=== PATIENT | female | born 1970 | race Caucasian/White ===

== ENCOUNTER 2016-07-26 08:29 | Emergency (ER) | payer MEDICAID ==
[2016-07-26 08:40] VITALS: BP 164/88
[2016-07-26] MEDS ORDERED: Sodium Chloride 0.9% 1,000 ML IV ONE (08:48)
[2016-07-26] MEDS ORDERED: Morphine 2 MG/ML Syringe IVPUSH ONE ×2 (08:54→12:19)
[2016-07-26] MEDS ORDERED: Iopamidol 755 Mg/ML 75 ML Bottle IV ONE (09:00)
--- NOTE | 2016-07-26 09:01 | EDM.PDOC ---
ED HPI GENERAL MEDICAL PROBLEM - General Chief Complaint: General Stated Complaint: MOUTH Time Seen by Provider: 07/26/16 08:31 Source of Information: Reports: Patient History Limitations: Reports: No limitations - History of Present Illness INITIAL COMMENTS - FREE TEXT/NARRATIVE: 46 years old w f came the the ed due to Jaw swelling, pain and redness. Pt was seen by her dentist last saturday for upper dental work. She noticed pain and tenderness at her ant. lower teeth a few days ago, which is spreading to her bilat mandible area. Pt has extreme pain with eating. Onset: gradual Onset Date: 07/25/16 Onset Time: 07:00 Duration: Day(s):, Getting worse Location: Reports: face Quality: Reports: Ache, Burning, Dull, Pressure, Stabbing, Throbbing Severity: severe Improves with: Reports: None Worsens with: Reports: None Treatments [employer]: Reports: NSAIDS Lower Oral/Mouth Pain Score (Numeric/FACES): 8 - Related Data Allergies Allergy/AdvReac Type Severity Reaction Status Date / Time Penicillins Allergy Unknown Hives Verified 04/27/16 00:43 Sulfa (Sulfonamide Allergy Rash Verified 04/27/16 00:43 Antibiotics) aspirin AdvReac Stomach Verified 04/27/16 00:43 Upset propoxyphene napsylate AdvReac Stomach Verified 04/27/16 00:43 [From Jaqueline] Upset Home Meds: Home Meds tiZANidine HCl [Zanaflex] 4 mg PO BEDTIME 01/17/15 [History] Norgestrel-Ethinyl Estradiol [Hwu-Ltrobwnb-60 Tablet] 1 tab PO BEDTIME 08/25/15 [History] Simvastatin 40 mg PO BEDTIME 11/16/15 [History] Ergocalciferol (Vitamin D2) [Vitamin D2] 50,000 units PO MONTELONGO 11/24/15 [History] Ibuprofen 400 mg PO DAILY PRN 11/24/15 [History] Levothyroxine 200 mcg PO ACBREAKFAST 11/24/15 [History] Omeprazole 20 mg PO DAILY 11/24/15 [History] Pyridoxine HCl [Vitamin B-6] 50 mg PO BEDTIME 11/24/15 [History] Lisinopril 5 mg PO DAILY 02/29/16 [History] metFORMIN HCl [Metformin HCl] 500 mg BID 02/29/16 [History] Metoprolol Succinate [Toprol XL] 25 mg pe PO DAILY 04/27/16 [History] Azithromycin [IMW: Azithromycin] 250 mg PO DAILY #4 tab 06/17/16 [Rx] Hydrocodone/Acetaminophen [Hydrocodon-Acetaminophen 5-325] 1 each PO Q4HR PRN # 16 tablet 06/17/16 [Rx] Hydrocodone/Acetaminophen [Hydrocodon-Acetaminophen 5-325] 1 each PO Q4HR PRN # 20 tablet 06/17/16 [Rx] Cephalexin [Keflex] 500 mg PO Q6HR #40 cap 07/26/16 [Rx] Past Medical History - Past Health History Medical/Surgical History: Denies Medical/Surgical History HEENT History: Reports: Impaired vision Cardiovascular History: Reports: High cholesterol, Hypertension, SOB on exertion Other Cardiovascular History: broken heart syndrome Respiratory History: Reports: Bronchitis, recurrent, Sleep apnea, SOB Gastrointestinal History: Reports: Gastritis Other Gastrointestinal History: Obese. Genitourinary History: Reports: Renal disease [employer]IDENT [employer]ELOP[employer] History: Reports: , Other (see below) Other OB/BYN History: Musculoskeletal History: Reports: Back pain, chronic Other Musculoskeletal History: Torn L rotator cuff. Right foot fracture. Wrist surgery. Neurological History: Reports: Vertigo Psychiatric History: Reports: Anxiety, Depression Endocrine/Metabolic History: Reports: Diabetes, type II, Obesity/BMI 30+ Other Endocrine/Metabolic History: hx throid storm - Infectious Disease History Infectious Disease History: Reports: Influenza - Past Surgical History HEENT Surgical History: Reports: Tonsillectomy GI Surgical History: Reports: Other (see below) Other GI Surgeries/Procedures: Gastric bypass and gastric bypass reversal. Endocrine Surgical History: Reports: Other (see below) Other Endocrine Surgeries/Procedures: thyroid removed 20 years ago Social & Family History - Family History Other Cardiac Family History: Mom had open heart surgery, pt unsure of what surgery was for. Musculoskeletal: Reports: Arthritis, Gout, Osteoporosis Endocrine/Metabolic: Reports: Diabetes, type II, Osteoporosis Oncologic: Reports: Lung - Tobacco Use Smoking Status *Q: Current Every Day Smoker Years of Tobacco use: 13 Packs/Tins Daily: 1 Used Tobacco, but Quit: No Second Hand Smoke Exposure: No - Caffeine Use Caffeine Use: Reports: Coffee - Alcohol Use Days Per Week of Alcohol Use: 0 - Recreational Drug Use Recreational Drug Use: No - Living Situation & Occupation Living situation: Reports: , with family Occupation: unemployed (unemployed with a 14 y/o son.) ED ROS GENERAL - Review of Systems Review Of Systems: See Below Constitutional: Reports: no symptoms HEENT: Reports: Other (pain, swelling lower jaw with swelling) Respiratory: Reports: no symptoms Cardiovascular: Reports: No symptoms Endocrine: Reports: no symptoms GI/Abdominal: Reports: No symptoms : Reports: no symptoms Musculoskeletal: Reports: no symptoms Skin: Reports: no symptoms Neurological: Reports: no symptoms Psychiatric: Reports: No symptoms Hematologic/Lymphatic: Reports: no symptoms Immunologic: Reports: no symptoms ED EXAM, GENERAL - Physical Exam Exam: See Below Exam Limited By: No limitations General Appearance: alert, WD/WN, mild distress, obese Ears: normal external exam, normal canal, hearing grossly normal, normal TMs Ear Exam: bilateral ear: auricle normal, canal normal, TM normal Nose: normal inspection, normal mucosa, no blood Throat/Mouth: Inflammation (swelling od lower jaw, tender and erythematous), Other (stomatitis) Head: atraumatic, normocephalic Neck: normal inspection, supple, non-tender, full range of motion Respiratory/Chest: no respiratory distress, lungs clear, normal breath sounds, no accessory muscle use, chest non-tender Cardiovascular: normal peripheral pulses GI/Abdominal: normal bowel sounds, soft, non tender, no organomegaly, no distention, no abnormal bruit, no mass (Female) Exam: Deferred Rectal (Female) Exam: Deferred Back Exam: normal inspection Extremities: normal inspection Neurological: alert, oriented, CN II-XII intact, normal cognition, normal gait Psychiatric: normal affect, normal mood Skin Exam: Warm, Dry, Intact, Normal color, No rash Lymphatic: no adenopathy Course - Vital Signs Text/Narrative:: 46 years old w f came the the ed due to Jaw swelling, pain and redness. Pt was seen by her dentist last consuelo for upper dental work. She noticed pain and tenderness at her ant. lower teeth a few days ago, which is spreading to her bilat mandible area. Pt has extreme pain with eating. PE: Tender, eythema, gingivitis, swelling of jaw Imaging: facial CT neg for abscess, has LK swelling however. as per Radiologist Labs: WBC nl, Lactic acid 1.4 Impression: Gingivitis/stomatitis Tx: MS, Toradol, Rocephin, NS Consultation: Dr. Parada. Pt is under healthcare restriction. Agreed for a prescription for abx Reexam: Improved Plan: D/C home with instructions Last Recorded V/S: Last Vital Signs Temp 37.1 C 07/26/16 08:30 Pulse 67 07/26/16 08:30 Resp 20 07/26/16 08:30 BP 164/88 H 07/26/16 08:30 Pulse Ox 100 07/26/16 08:30 - Orders/Labs/Meds Orders: Active Orders 24 hr Category Date Time Status Soft Tissue Neck w Cont [CT] Stat Exams 07/26/16 08:45 Taken cefTRIAXone [Rocephin] 1 gm Med 07/26/16 12:30 Active Sodium Chloride 0.9% [Normal Saline] 50 ml IV ONETIME Medication Orders Ceftriaxone Sodium 1 gm/ (Sodium Chloride) 50 mls @ 100 mls/hr IV ONETIME ONE Stop: 07/26/16 12:59 Labs: Laboratory Tests 07/26/16 07/26/16 07/26/16 Range/Units 09:00 09:00 09:00 WBC 8.7 (4.5-12.0) X10-3/uL RBC 3.93 (3.23-5.20) x10(6)uL Hgb 11.8 (11.5-15.5) g/dL Hct 34.6 (30.0-51.3) % MCV 88.1 (80-96) fL MCH 29.9 (27.7-33.6) pg MCHC 34.0 (32.2-35.4) g/dL RDW 13.5 (11.5-15.5) % Plt Count 322 (125-369) X10(3)uL MPV 8.4 (7.4-10.4) fL Neut % (Auto) 62.6 (46-82) % Lymph % (Auto) 31.7 (13-37) % [place] % (Auto) 4.5 (4-12) % Eos % (Auto) 1 (1.0-5.0) % Baso % (Auto) 1 (0-2) % Neut # 5.4 (1.6-8.3) # Lymph # 2.8 (0.6-5.0) # [place] # 0.4 (0.0-1.3) # Eos # 0.1 (0.0-0.8) # Baso # 0.0 (0.0-0.2) # Sodium 136 (135-145) mmol/L Potassium 4.1 (3.5-5.3) mmol/L Chloride 107 (100-110) mmol/L Carbon Dioxide 21 L (23-29) mmol/L BUN 9 (5-20) mg/dL Creatinine 0.9 (0.6-1.3) mg/dL Est Cr Clr Drug Dosing 74.34 mL/min Estimated GFR (MDRD) > 60 (>60) BUN/Creatinine Ratio 10.0 (9-20) Glucose 128 H (80-116) mg/dL Lactic Acid 1.4 (0.5-2.2) mmol/L Calcium 8.7 (8.6-10.2) mg/dL Meds: Medications Generic Name Dose Route Start Last Admin Trade Name Freq PRN Reason Stop Dose Admin Ceftriaxone Sodium 1 gm/ 50 mls @ 100 mls/hr 07/26/16 12:30 Sodium Chloride IV 07/26/16 12:59 ONETIME ONE Discontinued Medications Generic Name Dose Route Start Last Admin Trade Name Freq PRN Reason Stop Dose Admin Sodium Chloride 1,000 mls @ 999 mls/hr 07/26/16 08:48 07/26/16 11:02 Normal Saline IV 07/26/16 09:48 999 mls/hr .BOLUS ONE Administration Iopamidol 75 ml 07/26/16 09:00 07/26/16 10:30 Isovue-370 (76%) IV 07/26/16 09:01 75 ml ONETIME ONE Administration Ketorolac Tromethamine 30 mg 07/26/16 12:30 Toradol IVPUSH 07/26/16 12:31 ONETIME ONE Morphine Sulfate 1 mg 07/26/16 08:54 07/26/16 10:21 Morphine IVPUSH 07/26/16 08:55 1 mg ONETIME ONE Administration Morphine Sulfate 1 mg 07/26/16 12:19 Morphine IVPUSH 07/26/16 12:20 ONETIME ONE Departure - Departure Time of Disposition: 12:44 Disposition: Home, Self-Care 01 Condition: good Clinical Impression: Stomatitis, Gingivitis Prescriptions: Cephalexin [Keflex] 500 mg PO Q6HR #40 cap Instructions: Gingivitis, [id number], Stomatitis, [id number] Referrals: Linda Parada MD [Primary Care Provider] - Forms: ED Department Discharge Additional Instructions: Please rinse your mouth 3 times daily, Ice packs on jaw, please take the meds as recommended, please follow up, please come back if symptoms get worse acutely - My Orders Last 24 Hours: My Active Orders 07/26/16 08:45 Soft Tissue Neck w Cont [CT] Stat 07/26/16 12:30 cefTRIAXone [Rocephin] 1 gm Sodium Chloride 0.9% [Normal Saline] 50 ml IV ONETIME - Assessment/Plan Last 24 Hours: My Active Orders 07/26/16 08:45 Soft Tissue Neck w Cont [CT] Stat 07/26/16 12:30 cefTRIAXone [Rocephin] 1 gm Sodium Chloride 0.9% [Normal Saline] 50 ml IV ONETIME
[2016-07-26] MEDS ORDERED: Ketorolac 30 MG/ML SDV IVPUSH ONE (12:30)
[2016-07-26] MEDS ORDERED: cefTRIAXone 1 GM in Sodium Chloride 0.9% 50 ML IV ONE (12:30)
--- NOTE | 2016-07-26 13:13 | CT ---
INDICATION: Swelling of jaw, possible abscess. CT SOFT TISSUE NECK WITH CONTRAST: Spiral 2.5-mm axial sections were obtained through the neck with 75 mL Isovue-370 at 1.5 mL per second, with sagittal and coronal reconstructions. Submandibular lymphadenopathy is noted, suggesting inflammatory process at the level of the mandible. However, a definite abscess formation was not identified. No specific bony abscess or soft tissue abscess was seen. Report was called to Dr. Baca at approximately 1215 hours, 07/26/2016. Total Exam DLP = 391.46 mGy-cm. MTDD
== END 2016-07-26 13:45 | disposition home or self-care (01) ==
LOC: FB.ED 08:29
DX: K12.1 Other forms of stomatitis (principal); K05.10 Chronic gingivitis, plaque induced; I10 Essential (primary) hypertension; E78.00 Pure hypercholesterolemia, unspecified; E11.9 Type 2 diabetes mellitus without complications; F41.9 Anxiety disorder, unspecified; F32.9 Major depressive disorder, single episode, unspecified; F17.210 Nicotine dependence, cigarettes, uncomplicated; E66.9 Obesity, unspecified; Z68.31 Body mass index [BMI] 31.0-31.9, adult; Z98.84 Bariatric surgery status; Z98.890 Other specified postprocedural states; Z79.899 Other long term (current) drug therapy; Z88.0 Allergy status to penicillin; Z88.2 Allergy status to sulfonamides; Z88.8 Allergy status to other drugs, medicaments and biological substances
CPT/HCPCS: 36415; 70491; 80048; 83605; 85025; 96361; 96374; 99283; J0696; J1885; J2270; J7040; J7050; Q9967; 96365; 96375

== ENCOUNTER 2016-08-20 11:20 | Emergency (ER) | payer MEDICAID ==
[2016-08-20 11:40] VITALS: BP 158/97
[2016-08-20] MEDS ORDERED: methylPREDNISolone Sodium Succinate 125 MG/2 ML SDV IVPUSH ONE (11:40)
[2016-08-20] MEDS ORDERED: Albuterol/Ipratropium 3.0-0.5 MG/3 ML Neb Soln NEB STA (11:40)
[2016-08-20] MEDS ORDERED: Sodium Chloride 0.9% 1,000 ML IV ONE (11:41)
[2016-08-20] MEDS: Sodium Chloride 0.9% 10 ML Syringe FLUSH PRN ×6 (11:56→14:45)
[2016-08-20] MEDS ORDERED: diphenhydrAMINE 50 MG/ML SDV IVPUSH ONE (13:14)
[2016-08-20] MEDS ORDERED: Albuterol 0.083% 2.5 MG/3 ML Neb Soln NEB ONE (13:16)
[2016-08-20] MEDS ORDERED: Codeine/guaiFENesin 100-10 MG/5 ML Syrup 5 ML Cup PO ONE (13:17)
--- NOTE | 2016-08-20 13:58 | EDM.PDOC ---
ED HISTORY OF PRESENT ILLNESS - General Chief Complaint: Respiratory Problem Stated Complaint: CHEMICAL INHALATION Time Seen by Provider: 08/20/16 11:38 Source: Reports: Patient, Family History Limitations: Reports: No limitations - History of Present Illness INITIAL COMMENTS - FREE TEXT/NARRATIVE: 46 years old w f with h/o multiple medical issues, was cleaning her bathroom with bleach and other chemicals. A few minutes after those evaporating chemicals , pt started to cough, for which her daughter brought her to the ed. Pt complained of dry cough and chest burning. Her vitals were stable, pulse ox was 99% on RA. No N/V/D or other medical issues. Symptom Onset Date: 08/20/16 Symptom Onset Time: 10:00 Location, General: Reports: chest Worsens with: Reports: Other (taking a deep breath) Associated Symptoms: Reports: cough - Related Data Allergies/ADRs: Allergies Allergy/AdvReac Type Severity Reaction Status Date / Time Penicillins Allergy Unknown Hives Verified 08/20/16 11:36 Sulfa (Sulfonamide Allergy Rash Verified 08/20/16 11:36 Antibiotics) aspirin AdvReac Stomach Verified 08/20/16 11:36 Upset propoxyphene napsylate AdvReac Stomach Verified 08/20/16 11:36 [From Darvocet-N] Upset Home Meds: Home Meds tiZANidine HCl [Zanaflex] 4 mg PO BEDTIME 01/17/15 [History] Norgestrel-Ethinyl Estradiol [Qfa-Wjrneqcz-93 Tablet] 1 tab PO BEDTIME 08/25/15 [History] Simvastatin 40 mg PO BEDTIME 11/16/15 [History] Ergocalciferol (Vitamin D2) [Vitamin D2] 50,000 units PO MONTELONGO 11/24/15 [History] Ibuprofen 400 mg PO DAILY PRN 11/24/15 [History] Levothyroxine 200 mcg PO ACBREAKFAST 11/24/15 [History] Omeprazole 20 mg PO DAILY 11/24/15 [History] Pyridoxine HCl [Vitamin B-6] 50 mg PO BEDTIME 11/24/15 [History] Lisinopril 5 mg PO DAILY 02/29/16 [History] metFORMIN HCl [Metformin HCl] 500 mg BID 02/29/16 [History] Metoprolol Succinate [Toprol XL] 25 mg pe PO DAILY 04/27/16 [History] Azithromycin [IMW: Azithromycin] 250 mg PO DAILY #4 tab 06/17/16 [Rx] Hydrocodone/Acetaminophen [Hydrocodon-Acetaminophen 5-325] 1 each PO Q4HR PRN # 16 tablet 06/17/16 [Rx] Hydrocodone/Acetaminophen [Hydrocodon-Acetaminophen 5-325] 1 each PO Q4HR PRN # 20 tablet 06/17/16 [Rx] Cephalexin [Keflex] 500 mg PO Q6HR #40 cap 07/26/16 [Rx] Albuterol [IJD: Albuterol HFA] 1 puff .XX Q4HR #1 inhaler 08/20/16 [Rx] Codeine/guaiFENesin [Robitussin AC] 10 ml PO Q8HR PRN #1 bottle 08/20/16 [Rx] Prednisone [IJD: predniSONE] 20 mg PO WITHBREAKFAST #5 tab 08/20/16 [Rx] Past Medical History - Past Health History Medical/Surgical History: Denies Medical/Surgical History HEENT History: Reports: Impaired vision Cardiovascular History: Reports: High cholesterol, Hypertension, SOB on exertion Other Cardiovascular History: broken heart syndrome Respiratory History: Reports: Bronchitis, recurrent, Sleep apnea, SOB Gastrointestinal History: Reports: Gastritis Other Gastrointestinal History: Obese. 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 Right foot fracture. Wrist surgery. Neurological History: Reports: Vertigo Psychiatric History: Reports: Anxiety, Depression Endocrine/Metabolic History: Reports: Diabetes, type II, Obesity/BMI 30+ Other Endocrine/Metabolic History: hx throid storm - Infectious Disease History Infectious Disease History: Reports: Influenza - Past Surgical History HEENT Surgical History: Reports: Tonsillectomy GI Surgical History: Reports: Other (see below) Other GI Surgeries/Procedures: Gastric bypass and gastric bypass reversal. Endocrine Surgical History: Reports: Other (see below) Other Endocrine Surgeries/Procedures: thyroid removed 20 years ago Social & Family History - Family History Other Cardiac Family History: Mom had open heart surgery, pt unsure of what surgery was for. Musculoskeletal: Reports: Arthritis, Gout, Osteoporosis Endocrine/Metabolic: Reports: Diabetes, type II, Osteoporosis Oncologic: Reports: Lung - Tobacco Use Smoking Status *Q: Never Smoker Years of Tobacco use: 13 Packs/Tins Daily: 1 Used Tobacco, but Quit: No Second Hand Smoke Exposure: No - Caffeine Use Caffeine Use: Reports: Soda - Alcohol Use Days Per Week of Alcohol Use: 0 - Recreational Drug Use Recreational Drug Use: No Drug Use in Last 12 Months: No - Living Situation & Occupation Living situation: Reports: , with family Occupation: unemployed (unemployed with a 14 y/o son.) ED ROS GENERAL - Review of Systems Review Of Systems: See Below Constitutional: Reports: no symptoms, ROS unobtainable HEENT: Reports: No symptoms Respiratory: Reports: Pleuritic Chest Pain, Cough Cardiovascular: Reports: No symptoms Endocrine: Reports: no symptoms GI/Abdominal: Reports: No symptoms : Reports: no symptoms Musculoskeletal: Reports: no symptoms Skin: Reports: no symptoms Neurological: Reports: No Symptoms Psychiatric: Reports: No symptoms Hematologic/Lymphatic: Reports: no symptoms Immunologic: Reports: no symptoms ED EXAM, GENERAL - Physical Exam Exam: See Below Exam Limited By: No limitations General Appearance: alert, WD/WN, mild distress Eye Exam: bilateral eye: normal inspection Ears: normal external exam, normal canal Ear Exam: bilateral ear: auricle normal Nose: normal inspection, normal mucosa, no blood Throat/Mouth: Normal inspection, Normal lips, Normal teeth, Normal voice Head: atraumatic, normocephalic Neck: normal inspection, supple, non-tender, full range of motion Respiratory/Chest: no accessory muscle use, chest non-tender, wheezing Cardiovascular: normal peripheral pulses, regular rate, rhythm, no edema, no gallop, no JVD Peripheral Pulses: 2+: femoral (L) GI/Abdominal: normal bowel sounds, soft, non tender, no organomegaly, no distention, no abnormal bruit, no mass (Female) Exam: Deferred Rectal (Female) Exam: Deferred Back Exam: normal inspection, full range of motion, CVA tenderness (R) Extremities: normal inspection, normal range of motion, non-tender, no pedal edema, normal capillary refill Neurological: alert, oriented, CN II-XII intact, normal cognition, normal gait Psychiatric: normal affect, normal mood Skin Exam: Warm, Dry, Intact EKG INTERPRETATION EKG Date: 08/20/16 Time: 12:05 Rhythm: NSR Rate (beats/min): 91 [place]: normal P-wave: present QRS: normal ST-T: normal QT: prolonged Comparison: NA - no prior EKG Course - Vital Signs Text/Narrative:: 46 years old w f with h/o multiple medical issues, was cleaning her bathroom with bleach and other chemicals. A few minutes after those evaporating chemicals , pt started to cough, for which her daughter brought her to the ed. Pt complained of dry cough and chest burning. Her vitals were stable, pulse ox was 99% on RA. No N/V/D or other medical issues. PE: Exo wheezes and nonprod cough CXR: NAD Labs: Nl WBC Impression: Exposture to chemical hazards, asthma, nonprod. cough. Tx: NS, Duoneb and Albut neb, codeine, Solu Medrol Reexam: improved Plan: D/C with instructions Last Recorded V/S: Last Vital Signs Temp 37.0 C 08/20/16 11:38 Pulse 86 08/20/16 12:18 Resp 20 08/20/16 11:38 BP 158/97 H 08/20/16 11:38 Pulse Ox 98 08/20/16 12:22 - Orders/Labs/Meds Orders: Active Orders 24 hr Category Date Time Status Implanted Port Access [RC] ASDIRECTED Care 08/20/16 11:53 Active Implanted Port De-Access [RC] ASDIRECTED Care 08/20/16 14:07 Active RT Aerosol Therapy [RC] ASDIRECTED Care 08/20/16 13:16 Active CXR [Chest 2V] [CR] Stat Exams 08/20/16 11:42 Taken EKG 12 Lead [EK] Routine Ther 08/20/16 11:40 Ordered Labs: Laboratory Tests 08/20/16 08/20/16 Range/Units 12:20 12:20 WBC 6.9 (4.5-12.0) X10-3/uL RBC 3.61 (3.23-5.20) x10(6)uL Hgb 10.7 L (11.5-15.5) g/dL Hct 31.8 (30.0-51.3) % MCV 87.8 (80-96) fL MCH 29.6 (27.7-33.6) pg MCHC 33.7 (32.2-35.4) g/dL RDW 14.2 (11.5-15.5) % Plt Count 288 (125-369) X10(3)uL MPV 8.0 (7.4-10.4) fL Neut % (Auto) 59.9 (46-82) % Lymph % (Auto) 32.7 (13-37) % [place] % (Auto) 6.4 (4-12) % Eos % (Auto) 1 (1.0-5.0) % Baso % (Auto) 0 (0-2) % Neut # (Auto) 4.2 (1.6-8.3) # Lymph # (Auto) 2.3 (0.6-5.0) # [place] # (Auto) 0.4 (0.0-1.3) # Eos # (Auto) 0.0 (0.0-0.8) # Baso # (Auto) 0.0 (0.0-0.2) # Sodium 135 (135-145) mmol/L Potassium 3.6 (3.5-5.3) mmol/L Chloride 107 (100-110) mmol/L Carbon Dioxide 22 L (23-29) mmol/L BUN 13 (5-20) mg/dL Creatinine 0.8 (0.6-1.3) mg/dL Est Cr Clr Drug Dosing TNP Estimated GFR (MDRD) > 60 (>60) BUN/Creatinine Ratio 16.3 (9-20) Glucose 132 H (80-116) mg/dL Calcium 8.4 L (8.6-10.2) mg/dL Meds: Medications Discontinued Medications Generic Name Dose Route Start Last Admin Trade Name Freq PRN Reason Stop Dose Admin Albuterol 2.5 mg 08/20/16 13:16 08/20/16 13:30 Proventil Neb Soln NEB 08/20/16 13:17 2.5 mg ONETIME ONE Administration Albuterol/Ipratropium 3 ml 08/20/16 11:40 08/20/16 12:06 Duoneb 3.0-0.5 Mg/3 Ml NEB 08/20/16 11:41 3 ml ONETIME STA Administration Diphenhydramine HCl 25 mg 08/20/16 13:14 08/20/16 13:28 Benadryl IVPUSH 08/20/16 13:15 25 mg ONETIME ONE Administration Guaifenesin/Codeine Phosphate 5 ml 08/20/16 13:17 08/20/16 13:30 Robitussin Ac PO 08/20/16 13:18 5 ml ONETIME ONE Administration Heparin Sodium (Porcine) 500 units 08/20/16 14:34 08/20/16 14:40 Heparin Lock Flush 100 Units/Ml Syringe FLUSH 500 units ASDIRECTED PRN Administration Other Sodium Chloride 1,000 mls @ 999 mls/hr 08/20/16 11:41 08/20/16 12:01 Normal Saline IV 08/20/16 12:41 999 mls/hr .BOLUS ONE Administration Methylprednisolone Sodium Succinate 125 mg 08/20/16 11:40 08/20/16 11:51 Solu-Medrol IVPUSH 08/20/16 11:41 125 mg ONETIME ONE Administration Sodium Chloride 10 ml 08/20/16 11:54 08/20/16 14:40 Saline Flush FLUSH 10 ml ASDIRECTED PRN Administration flush Departure - Departure Time of Disposition: 14:13 Disposition: Home, Self-Care 01 Condition: good Clinical Impression: Exposure to chemical irritant, Non-productive cough Prescriptions: Albuterol [IJD: Albuterol HFA] 1 puff .XX Q4HR #1 inhaler Codeine/guaiFENesin [Robitussin AC] 10 ml PO Q8HR PRN #1 bottle PRN Reason: Cough Prednisone [IJD: predniSONE] 20 mg PO WITHBREAKFAST #5 tab Referrals: Linda Parada MD [Primary Care Provider] - Forms: ED Department Discharge Additional Instructions: Please increase water intake, please take the meds as recommended, please follow up, come back to the ed if symptoms get worse acutely. - My Orders Last 24 Hours: My Active Orders 08/20/16 11:40 EKG 12 Lead [EK] Routine 08/20/16 11:42 CXR [Chest 2V] [CR] Stat 08/20/16 11:53 Implanted Port Access [RC] ASDIRECTED 08/20/16 13:16 RT Aerosol Therapy [RC] ASDIRECTED 08/20/16 14:07 Implanted Port De-Access [RC] ASDIRECTED - Assessment/Plan Last 24 Hours: My Active Orders 08/20/16 11:40 EKG 12 Lead [EK] Routine 08/20/16 11:42 CXR [Chest 2V] [CR] Stat 08/20/16 11:53 Implanted Port Access [RC] ASDIRECTED 08/20/16 13:16 RT Aerosol Therapy [RC] ASDIRECTED 08/20/16 14:07 Implanted Port De-Access [RC] ASDIRECTED
--- NOTE | 2016-08-21 07:32 | CR ---
INDICATION: Cough, chemical inhalation. CHEST: PA and lateral views of the chest 08/20/2016 were compared with and 02/29/2016, revealing relatively poor inspiration with no definite active infiltrate or effusion identified. Port-a-cath is unchanged in position with its tip at the maida. Left ventricular prominence is suggested, as previously. The aorta is tortuous with calcification in the arch. Bony structures appear to be fairly intact. IMPRESSION: 1. Allowing for poor inspiration on the current study, no definite acute process is suggested. 2. Probable ASHD. MTDD
== END 2016-08-20 14:45 | disposition home or self-care (01) ==
LOC: FB.ED 11:20
DX: R05 Cough (principal); Z77.098 Contact with and (suspected) exposure to other hazardous, chiefly nonmedicinal, chemicals; E78.00 Pure hypercholesterolemia, unspecified; I10 Essential (primary) hypertension; F41.9 Anxiety disorder, unspecified; F32.9 Major depressive disorder, single episode, unspecified; E11.9 Type 2 diabetes mellitus without complications; E66.9 Obesity, unspecified; Z98.890 Other specified postprocedural states; Z79.84 Long term (current) use of oral hypoglycemic drugs; Z79.899 Other long term (current) drug therapy; Z88.0 Allergy status to penicillin; Z88.2 Allergy status to sulfonamides; Z88.8 Allergy status to other drugs, medicaments and biological substances
CPT/HCPCS: 71020; 80048; 85025; 93005; 94640; 94664; 96361; 96374; 96375; 99283; A9270; J1200; J1642; J2930; J7040; J7050; J7620

== ENCOUNTER 2016-11-12 09:54 | Emergency (ER) | payer MEDICAID ==
[2016-11-12] MEDS ORDERED: Alum Hydroxide/Mag Hydroxide 30 ML, Lidocaine 2% 15 ML PO ONE ×2 (10:29)
[2016-11-12] MEDS ORDERED: Sodium Chloride 0.9% 10 ML Syringe FLUSH PRN (10:29)
[2016-11-12] MEDS ORDERED: LORazepam 2 MG/ML MDV IVPUSH ONE ×2 (10:30→12:06)
--- NOTE | 2016-11-12 10:41 | EDM.PDOC ---
ED HPI GENERAL MEDICAL PROBLEM - General Chief Complaint: Chest Pain Stated Complaint: CHEST PAIN Time Seen by Provider: 11/12/16 10:10 Source of Information: Reports: Patient History Limitations: Reports: No Limitations - History of Present Illness INITIAL COMMENTS - FREE TEXT/NARRATIVE: c/o CP x 20h onset CP at 2 PM yesterday while watching TV, also with ache in L arm and HARRISON on L side, some N, visibly anxious, no cough, says it is "hard to breath" and has shallow breaths here, no f/c/d, no radiation, no change with activity, no change with heat from bath, no change with ibuprofen or APAP has allergy to ASA, not taking clopidogrel h/o Takotsubo CMP 3y ago after her father last echo 05/11 with EF 45% and mild dec'd systolic fcn of LV, global hypokinesis with sparing of basal segments, LV size ULN, LA nl size PMH includes DM, HTN, HF, Takotsubo CMP, hypothyroid, mood DO, inc'd QT, GERD, morbid obesity PSH includes gastric bypass PCP Dr Raymundo, cardiology in [place] (not remember name) and last seen over 1y ago puts meds in weekly pill organizer, says she has not missed pills (has been noncompliant in past) ate ham sandwich for supper alst night, ate cinnamon toast and milk for breakfast did not leave house yesterday except to watch TV at her mother's house, here with daughter did not sleep well, slept ~3h, however usually sleeps only 4-5h chest Pain Score (Numeric/FACES): 7 - Related Data Allergies Allergy/AdvReac Type Severity Reaction Status Date / Time Penicillins Allergy Unknown Hives Verified 11/12/16 10:21 Sulfa (Sulfonamide Allergy Rash Verified 11/12/16 10:21 Antibiotics) aspirin AdvReac Stomach Verified 11/12/16 10:21 Upset propoxyphene napsylate AdvReac Stomach Verified 11/12/16 10:21 [From Jaqueline] Upset Home Meds: Home Meds Norgestrel-Ethinyl Estradiol [Das-[id number] Tablet] 1 tab PO BEDTIME 08/25/15 [History] Simvastatin 40 mg PO BEDTIME 11/16/15 [History] Ibuprofen 400 mg PO DAILY PRN 11/24/15 [History] Levothyroxine 185 mcg PO ACBREAKFAST 11/24/15 [History] Omeprazole 20 mg PO DAILY 11/24/15 [History] Lisinopril 5 mg PO DAILY 02/29/16 [History] metFORMIN HCl [Metformin HCl] 500 mg PO BID 02/29/16 [History] Metoprolol Succinate [Toprol XL] 25 mg pe PO DAILY 04/27/16 [History] Past Medical History - Past Health History Medical/Surgical History: Denies Medical/Surgical History HEENT History: Reports: Impaired Vision Cardiovascular History: Reports: High Cholesterol, Hypertension, SOB on Exertion Other Cardiovascular History: broken heart syndrome Respiratory History: Reports: Bronchitis, Recurrent, Sleep Apnea, SOB Gastrointestinal History: Reports: Gastritis Other Gastrointestinal History: Obese. Genitourinary History: Reports: Renal Disease MOTORMAN/WOMAN History: Reports: , Other (See Below) Other OB/BYN History: Musculoskeletal History: Reports: Back Pain, Chronic Other Musculoskeletal History: Torn L rotator cuff. Right foot fracture. Wrist surgery. Neurological History: Reports: Vertigo Psychiatric History: Reports: Anxiety, Depression Endocrine/Metabolic History: Reports: Diabetes, Type II, Obesity/BMI 30+ Other Endocrine/Metabolic History: hx throid storm - Infectious Disease History Infectious Disease History: Reports: Influenza - Past Surgical History GI Surgical History: Reports: Other (See Below) Endocrine Surgical History: Reports: Other (See Below) Musculoskeletal Surgical History: Reports: Shoulder Surgery Social & Family History - Family History Other Cardiac Family History: Mom had open heart surgery, pt unsure of what surgery was for. Musculoskeletal: Reports: Arthritis, Gout, Osteoporosis Endocrine/Metabolic: Reports: Diabetes, type II, Osteoporosis Oncologic: Reports: Lung - Tobacco Use Smoking Status *Q: Never Smoker Years of Tobacco use: 13 Packs/Tins Daily: 1 Used Tobacco, but Quit: No Second Hand Smoke Exposure: No - Caffeine Use Caffeine Use: Reports: None - Alcohol Use Days Per Week of Alcohol Use: 0 - Recreational Drug Use Recreational Drug Use: No Drug Use in Last 12 Months: No - Living Situation & Occupation Living situation: Reports: , with Family Occupation: Unemployed ED ROS GENERAL - Review of Systems Review Of Systems: See Below Constitutional: Reports: No Symptoms HEENT: Reports: No Symptoms Respiratory: Reports: Shortness of Breath. Denies: Cough Cardiovascular: Reports: Chest Pain Endocrine: Reports: No Symptoms GI/Abdominal: Reports: No Symptoms : Reports: No Symptoms Musculoskeletal: Reports: No Symptoms Skin: Reports: No Symptoms Neurological: Reports: No Symptoms Psychiatric: Reports: No Symptoms Hematologic/Lymphatic: Reports: No Symptoms Immunologic: Reports: No Symptoms ED EXAM, GENERAL - Physical Exam Exam: See Below Exam Limited By: No Limitations General Appearance: Alert, WD/WN, No Apparent Distress Ears: Normal External Exam, Hearing Grossly Normal Nose: Normal Inspection Throat/Mouth: Normal Inspection, Normal Lips, Normal Teeth, Normal Gums, Normal Oropharynx, Normal Voice, No Airway Compromise Head: Atraumatic, Normocephalic Neck: Normal Inspection Respiratory/Chest: No Respiratory Distress, Lungs Clear, Normal Breath Sounds, No Accessory Muscle Use, Chest Non-Tender, Other (anxious, mild tachypnea, PO 100% on RA) Cardiovascular: Regular Rate, Rhythm, No Edema, No Gallop, No JVD, No Rub, Other (2/6 NAVNEET at LSB) GI/Abdominal: Soft, Non-Tender, No Organomegaly, No Distention, No Mass Back Exam: Normal Inspection, Full Range of Motion, NT Extremities: Normal Inspection, Normal Range of Motion, Non-Tender, No Pedal Edema Neurological: Alert, Oriented, CN II-XII Intact, Normal Cognition, No Motor/ Sensory Deficits Psychiatric: Anxious Skin Exam: Warm, Dry, Intact, Normal Color, No Rash Lymphatic: No Adenopathy Course - Vital Signs Last Recorded V/S: Last Vital Signs Temp 36.9 C 11/12/16 09:54 Pulse 90 11/12/16 12:21 Resp 18 11/12/16 12:21 BP 135/103 H 11/12/16 12:21 Pulse Ox 95 11/12/16 12:21 - Orders/Labs/Meds Orders: Active Orders 24 hr Category Date Time Status Chest 2V [CR] Stat Exams 11/12/16 10:28 Ordered Sodium Chloride 0.9% [Saline Flush] Med 11/12/16 10:29 Ordered 10 ml FLUSH ASDIRECTED PRN Saline Lock Insert [OM.PC] Routine Oth 11/12/16 10:29 Ordered EKG 12 Lead [EK] Routine Ther 11/12/16 10:28 Ordered Medication Orders Sodium Chloride (Saline Flush) 10 ml FLUSH ASDIRECTED PRN PRN Reason: Keep Vein Open Last Admin: 11/12/16 10:50 Dose: 10 ml Labs: Laboratory Tests 11/12/16 11/12/16 11/12/16 Range/Units 10:15 10:15 10:15 WBC 7.5 (4.5-12.0) X10-3/uL RBC 4.26 (3.23-5.20) x10(6)uL Hgb 12.1 (11.5-15.5) g/dL Hct 36.2 (30.0-51.3) % MCV 85.0 (80-96) fL MCH 28.4 (27.7-33.6) pg MCHC 33.4 (32.2-35.4) g/dL RDW 15.5 (11.5-15.5) % Plt Count 276 (125-369) X10(3)uL MPV 8.5 (7.4-10.4) fL Neut % (Auto) 56.3 (46-82) % Lymph % (Auto) 37.1 H (13-37) % [place] % (Auto) 5.0 (4-12) % Eos % (Auto) 1 (1.0-5.0) % Baso % (Auto) 1 (0-2) % Neut # (Auto) 4.1 (1.6-8.3) # Lymph # (Auto) 2.8 (0.6-5.0) # [place] # (Auto) 0.4 (0.0-1.3) # Eos # (Auto) 0.1 (0.0-0.8) # Baso # (Auto) 0.0 (0.0-0.2) # Sodium 138 (135-145) mmol/L Potassium 3.8 (3.5-5.3) mmol/L Chloride 107 (100-110) mmol/L Carbon Dioxide 22 L (23-29) mmol/L BUN 13 (5-20) mg/dL Creatinine 1.1 (0.6-1.3) mg/dL Est Cr Clr Drug Dosing TNP Estimated GFR (MDRD) 53 L (>60) BUN/Creatinine Ratio 11.8 (9-20) Glucose 111 (80-116) mg/dL Hemoglobin A1c (4.0-6.0) % Calcium 8.8 (8.6-10.2) mg/dL Magnesium 1.9 (1.8-2.5) mg/dL Total Bilirubin 0.8 (0.1-1.3) mg/dL AST 20 D (5-27) IU/L ALT 5 L D (14-26) IU/L Alkaline Phosphatase 112 (56-112) IU/L Troponin I < 0.01 L (0.02-0.06) NG/ML C-Reactive Protein < 0.5 (0.0-1.0) mg/dL B-Natriuretic Peptide (0-100) pg/mL Total Protein 7.0 (6.0-8.0) g/dL Albumin 3.9 (3.5-5.2) g/dL Globulin 3.1 g/dL Albumin/Globulin Ratio 1.3 TSH, Ultra Sensitive (0.4-5.5) nlU/mL 11/12/16 11/12/16 11/12/16 Range/Units 10:15 10:15 10:15 WBC (4.5-12.0) X10-3/uL RBC (3.23-5.20) x10(6)uL Hgb (11.5-15.5) g/dL Hct (30.0-51.3) % MCV (80-96) fL MCH (27.7-33.6) pg MCHC (32.2-35.4) g/dL RDW (11.5-15.5) % Plt Count (125-369) X10(3)uL MPV (7.4-10.4) fL Neut % (Auto) (46-82) % Lymph % (Auto) (13-37) % [place] % (Auto) (4-12) % Eos % (Auto) (1.0-5.0) % Baso % (Auto) (0-2) % Neut # (Auto) (1.6-8.3) # Lymph # (Auto) (0.6-5.0) # [place] # (Auto) (0.0-1.3) # Eos # (Auto) (0.0-0.8) # Baso # (Auto) (0.0-0.2) # Sodium (135-145) mmol/L Potassium (3.5-5.3) mmol/L Chloride (100-110) mmol/L Carbon Dioxide (23-29) mmol/L BUN (5-20) mg/dL Creatinine (0.6-1.3) mg/dL Est Cr Clr Drug Dosing Estimated GFR (MDRD) (>60) BUN/Creatinine Ratio (9-20) Glucose (80-116) mg/dL Hemoglobin A1c 6.7 H (4.0-6.0) % Calcium (8.6-10.2) mg/dL Magnesium (1.8-2.5) mg/dL Total Bilirubin (0.1-1.3) mg/dL AST (5-27) IU/L ALT (14-26) IU/L Alkaline Phosphatase (56-112) IU/L Troponin I (0.02-0.06) NG/ML C-Reactive Protein (0.0-1.0) mg/dL B-Natriuretic Peptide 5 (0-100) pg/mL Total Protein (6.0-8.0) g/dL Albumin (3.5-5.2) g/dL Globulin g/dL Albumin/Globulin Ratio TSH, Ultra Sensitive > 150.00 H* (0.4-5.5) nlU/mL 11/12/16 Range/Units 12:35 WBC (4.5-12.0) X10-3/uL RBC (3.23-5.20) x10(6)uL Hgb (11.5-15.5) g/dL Hct (30.0-51.3) % MCV (80-96) fL MCH (27.7-33.6) pg MCHC (32.2-35.4) g/dL RDW (11.5-15.5) % Plt Count (125-369) X10(3)uL MPV (7.4-10.4) fL Neut % (Auto) (46-82) % Lymph % (Auto) (13-37) % [place] % (Auto) (4-12) % Eos % (Auto) (1.0-5.0) % Baso % (Auto) (0-2) % Neut # (Auto) (1.6-8.3) # Lymph # (Auto) (0.6-5.0) # [place] # (Auto) (0.0-1.3) # Eos # (Auto) (0.0-0.8) # Baso # (Auto) (0.0-0.2) # Sodium (135-145) mmol/L Potassium (3.5-5.3) mmol/L Chloride (100-110) mmol/L Carbon Dioxide (23-29) mmol/L BUN (5-20) mg/dL Creatinine (0.6-1.3) mg/dL Est Cr Clr Drug Dosing Estimated GFR (MDRD) (>60) BUN/Creatinine Ratio (9-20) Glucose (80-116) mg/dL Hemoglobin A1c (4.0-6.0) % Calcium (8.6-10.2) mg/dL Magnesium (1.8-2.5) mg/dL Total Bilirubin (0.1-1.3) mg/dL AST (5-27) IU/L ALT (14-26) IU/L Alkaline Phosphatase (56-112) IU/L Troponin I < 0.01 L (0.02-0.06) NG/ML C-Reactive Protein (0.0-1.0) mg/dL B-Natriuretic Peptide (0-100) pg/mL Total Protein (6.0-8.0) g/dL Albumin (3.5-5.2) g/dL Globulin g/dL Albumin/Globulin Ratio TSH, Ultra Sensitive (0.4-5.5) nlU/mL Meds: Medications Generic Name Dose Route Start Last Admin Trade Name Freq PRN Reason Stop Dose Admin Sodium Chloride 10 ml 11/12/16 10:29 11/12/16 10:50 Saline Flush FLUSH 10 ml ASDIRECTED PRN Administration Keep Vein Open Discontinued Medications Generic Name Dose Route Start Last Admin Trade Name Freq PRN Reason Stop Dose Admin Al Hydroxide/Mg Hydroxide 30 0 ml 11/12/16 10:29 11/12/16 10:45 ml/ Lidocaine HCl 15 ml PO 11/12/16 10:30 30 ml ONETIME ONE Administration Ketorolac Tromethamine 30 mg 11/12/16 11:33 11/12/16 11:43 Toradol IVPUSH 11/12/16 11:34 30 mg ONETIME ONE Administration Lorazepam 1 mg 11/12/16 10:30 11/12/16 11:05 Ativan IVPUSH 11/12/16 10:31 1 mg ONETIME ONE Administration Lorazepam 1 mg 11/12/16 12:06 11/12/16 12:19 Ativan IVPUSH 11/12/16 12:07 1 mg ONETIME ONE Administration Metoclopramide HCl 10 mg 11/12/16 11:34 11/12/16 11:43 Reglan IVPUSH 11/12/16 11:35 10 mg ONETIME ONE Administration Nitroglycerin 0.4 mg 11/12/16 12:07 11/12/16 12:14 Nitrostat SL 11/12/16 12:08 0.4 mg ONETIME ONE Administration - Re-Assessments/Exams Free Text/Narrative Re-Assessment/Exam: 11/12/16 13:18 w/u neg including repeat troponin, CxR neg review of meds at pharmacy indicate she is not taking both trazadone 100 mg daily (for past wk) and Synthroid (last filled 2m ago), pt has no insight into her failure to take her meds, she state she is still taking her Synthroid even through she clearly is not HARRISON and CP are better altho both are not gone, pt does not seem to understand that she needs to take her meds as prescribed if she is going to sleep better at night and feel better during the day, her dependency needs are very high and it is not clear whether she will be able to continue to live in an unsupervised environment Departure - Departure Time of Disposition: 13:22 Disposition: Home, Self-Care 01 Condition: Good Clinical Impression: Noncompliance with medication regimen, Hypothyroidism, Hypothyroid, Tension headache, Non-cardiac chest pain Insomnia Qualifiers: Insomnia type: due to medical condition Qualified Code(s): G47.01 - Insomnia due to medical condition Forms: ED Department Discharge Additional Instructions: Take your meds as prescribed. Take the trazadone 100 mg at bedtime. Take the Synthroid 185 mcg 1 tab today and every day. May take diphenhydramine (Benadryl) 25 mg 2 tabs at bedtime to help with sleep if needed. For headache, take ibuprofen 200 mg 3 tabs and acetaminophen 325 mg 325 mg 2 tabs 4 times a day for 24 hours. In a couple of days, after getting back on your meds, begin walking 2 miles a day for exercise. See Dr Raymundo in 1-2 days. Return to ED if you feel worse. Call your Physician or Return to Emergency Department if: * Your condition worsens in any way. * You develop fever greater than 100.4. * You have vomitting that does not stop with medications. * You have pain that is not controlled with medications. - My Orders Last 24 Hours: My Active Orders 11/12/16 10:28 Chest 2V [CR] Stat EKG 12 Lead [EK] Routine 11/12/16 10:29 Sodium Chloride 0.9% [Saline Flush] 10 ml FLUSH ASDIRECTED PRN Saline Lock Insert [OM.PC] Routine - Assessment/Plan Last 24 Hours: My Active Orders 11/12/16 10:28 Chest 2V [CR] Stat EKG 12 Lead [EK] Routine 11/12/16 10:29 Sodium Chloride 0.9% [Saline Flush] 10 ml FLUSH ASDIRECTED PRN Saline Lock Insert [OM.PC] Routine
[2016-11-12] MEDS ORDERED: Ketorolac 30 MG/ML SDV IVPUSH ONE (11:33)
[2016-11-12] MEDS ORDERED: Metoclopramide 10 MG/2 ML SDV IVPUSH ONE (11:34)
[2016-11-12] MEDS ORDERED: Nitroglycerin 0.4 MG Tab.SL SL ONE (12:07)
[2016-11-12 15:17] VITALS: BP 148/105
--- NOTE | 2016-11-15 12:27 | CR ---
INDICATION: Chest pain. CHEST, PA AND LATERAL VIEWS: FINDINGS: There is an earlier chest x-ray from 08/20/2016. Otherwise, the patient did have a CT scan on 06/17/2016. As on earlier imaging, there is a port that is identified extending into the SVC. The patient has had a previous gastric bypass. There has been a previous cholecystectomy. The lungs are clear of acute infiltrate or effusion. The heart size is mildly enlarged. There is some prominence of the left ventricle. This appearance has been present previously. There is some prominence to the ascending thoracic aorta as on earlier imaging. I am not certain if this patient has underlying aortic stenosis or aortic regurgitation or if there is underlying hypertension. Please clinically correlate. The mediastinal contours do look stable compared with the earlier imaging. No definite lymphadenopathy. There is a mild scoliosis deformity of the thoracic spine curved convex right. There are some mild compression deformities in the lower thoracic and upper lumbar spine region, though these look chronic. IMPRESSION: 1. No acute pneumonia or CHF. 2. Mild cardiomegaly with some dilatation of the left ventricle as before. 3. Prominent ascending thoracic aorta is again identified and presumably is related to the underlying aortic valve disease or underlying hypertension. As appropriate, consider an echocardiogram for further evaluation. 4. Post surgical change in the upper abdomen. PATRICED
== END 2016-11-12 13:45 | disposition home or self-care (01) ==
LOC: FB.ED 09:54
DX: G44.209 Tension-type headache, unspecified, not intractable (principal); R07.89 Other chest pain; G47.01 Insomnia due to medical condition; E11.9 Type 2 diabetes mellitus without complications; I11.0 Hypertensive heart disease with heart failure; I50.9 Heart failure, unspecified; E03.9 Hypothyroidism, unspecified; K21.9 Gastro-esophageal reflux disease without esophagitis; E66.01 Morbid (severe) obesity due to excess calories; E78.00 Pure hypercholesterolemia, unspecified; H54.7 Unspecified visual loss; Z98.84 Bariatric surgery status; Z88.0 Allergy status to penicillin; Z88.2 Allergy status to sulfonamides; Z88.8 Allergy status to other drugs, medicaments and biological substances; Z79.899 Other long term (current) drug therapy
CPT/HCPCS: 36415; 71020; 80053; 83036; 83735; 83880; 84443; 84484; 85025; 86140; 93005; 96374; 96375; 96376; 99285; A9270; J1885; J2060; J2765; J7050

== ENCOUNTER 2016-12-08 17:23 | Observation (INO) | payer MEDICAID ==
--- NOTE | 2016-12-08 17:40 | EDM.PDOC ---
[id number] 4d WEAKNESS Time Seen by Provider: 12/08/16 17:40 Source of Information: Reports: Patient History Limitations: Reports: No Limitations - History of Present Illness INITIAL COMMENTS - FREE TEXT/NARRATIVE: 46 yo F with h/o cardiomyopathy with recurrent bouts of chest pain and SOB. Reports that current episode started 3 days and has been getting worse. Reports feeling weak. Chest pain has been episodic and similar to her prior bouts of chest pain. No urinary symptoms. Denied any diaphoresi, Leg swelling, vomiting. Feels occasionally like she is about to pass out. Presented to the ER on account of worsening of symptoms Onset: Gradual (started 3 days ago and seem to be getting worse) Duration: Intermittent Associated Symptoms: Reports: Malaise, Shortness of Breath, Weakness Left Chest Pain Score (Numeric/FACES): 6 Headache Pain Score (Numeric/FACES): 7 Lower Back Pain Score (Numeric/FACES): 5 - Related Data Allergies Allergy/AdvReac Type Severity Reaction Status Date / Time Penicillins Allergy Unknown Hives Verified 12/08/16 17:40 Sulfa (Sulfonamide Allergy Rash Verified 12/08/16 17:40 Antibiotics) aspirin AdvReac Stomach Verified 12/08/16 17:40 Upset propoxyphene napsylate AdvReac Stomach Verified 12/08/16 17:40 [From Darvocet-N] Upset Home Meds: Home Meds Norgestrel-Ethinyl Estradiol [Ujk-Hibxbcem-99 Tablet] 1 tab PO BEDTIME 08/25/15 [History] Simvastatin 40 mg PO BEDTIME 11/16/15 [History] Levothyroxine 185 mcg PO ACBREAKFAST 11/24/15 [History] Lisinopril 5 mg PO DAILY 02/29/16 [History] Metoprolol Succinate [Toprol XL] 25 mg pe PO DAILY 04/27/16 [History] traZODone 200 mg PO BEDTIME 12/08/16 [History] Past Medical History - Past Health History Medical/Surgical History: Denies Medical/Surgical History HEENT History: Reports: Impaired Vision Cardiovascular History: Reports: High Cholesterol, Hypertension, SOB on Exertion Other Cardiovascular History: broken heart syndrome Respiratory History: Reports: Bronchitis, Recurrent, Sleep Apnea, SOB Gastrointestinal History: Reports: Gastritis Other Gastrointestinal History: Obese. 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 Right foot fracture. Wrist surgery. Neurological History: Reports: Vertigo Psychiatric History: Reports: Anxiety, Depression Endocrine/Metabolic History: Reports: Diabetes, Type II, Obesity/BMI 30+ Other Endocrine/Metabolic History: hx throid storm - Infectious Disease History Infectious Disease History: Reports: Influenza - Past Surgical History GI Surgical History: Reports: Other (See Below) Endocrine Surgical History: Reports: Other (See Below) Musculoskeletal Surgical History: Reports: Shoulder Surgery Social & Family History - Family History Other Cardiac Family History: Mom had open heart surgery, pt unsure of what surgery was for. Musculoskeletal: Reports: Arthritis, Gout, Osteoporosis Endocrine/Metabolic: Reports: Diabetes, type II, Osteoporosis Oncologic: Reports: Lung - Tobacco Use Smoking Status *Q: Never Smoker Years of Tobacco use: 13 Packs/Tins Daily: 1 Used Tobacco, but Quit: No Second Hand Smoke Exposure: No - Caffeine Use Caffeine Use: Reports: None - Alcohol Use Days Per Week of Alcohol Use: 0 - Recreational Drug Use Recreational Drug Use: No Drug Use in Last 12 Months: No - Living Situation & Occupation Living situation: Reports: , with Family Occupation: Unemployed ED ROS GENERAL - Review of Systems Review Of Systems: See Below Constitutional: Reports: Malaise, Weakness, Fatigue HEENT: Reports: No Symptoms Respiratory: Reports: Shortness of Breath Cardiovascular: Reports: Chest Pain Endocrine: Reports: No Symptoms GI/Abdominal: Reports: No Symptoms : Reports: No Symptoms Musculoskeletal: Reports: No Symptoms Skin: Reports: No Symptoms Neurological: Reports: No Symptoms Psychiatric: Reports: No Symptoms Hematologic/Lymphatic: Reports: No Symptoms Immunologic: Reports: No Symptoms ED EXAM, GENERAL - Physical Exam Exam: See Below Exam Limited By: No Limitations General Appearance: Alert, WD/WN, No Apparent Distress Eye Exam: Bilateral Eye: PERRL Ears: Normal External Exam, Normal Canal, Normal TMs Ear Exam: Bilateral Ear: Canal Normal Nose: Normal Inspection, Normal Mucosa, No Blood Throat/Mouth: Normal Inspection, Normal Lips, Normal Teeth Head: Atraumatic, Normocephalic Neck: Normal Inspection, Supple, Non-Tender Respiratory/Chest: No Respiratory Distress, Lungs Clear, Normal Breath Sounds Cardiovascular: Normal Peripheral Pulses, Regular Rate, Rhythm, No Edema GI/Abdominal: Normal Bowel Sounds, Soft, Non-Tender, No Organomegaly, No Distention (Female) Exam: Deferred Rectal (Female) Exam: Deferred Back Exam: Normal Inspection, Full Range of Motion Extremities: Normal Inspection, Normal Range of Motion, Non-Tender Neurological: Alert, Oriented, CN II-XII Intact, Normal Cognition Psychiatric: Normal Affect, Normal Mood Skin Exam: Warm Course - Vital Signs Last Recorded V/S: Last Vital Signs Temp 36.9 C 12/08/16 17:42 Pulse 52 L 12/08/16 21:35 Resp 14 12/08/16 21:35 BP 140/78 12/08/16 21:35 Pulse Ox 98 12/08/16 21:35 Orthostatic Blood Pressure [ 97/74 Standing] Orthostatic Blood Pressure [ 134/77 Sitting] Orthostatic Blood Pressure [ 131/79 Supine] - Orders/Labs/Meds Orders: Active Orders 24 hr Category Date Time Status Sodium Chloride 0.9% [Normal Saline] 1,000 ml Med 12/08/16 17:45 Active IV ASDIRECTED Medication Orders Heparin Sodium (Porcine) (Heparin Sodium) 5,000 units SUBCUT Q8H JULY Sodium Chloride (Normal Saline) 1,000 mls @ 100 mls/hr IV ASDIRECTED JULY Last Admin: 12/08/16 18:12 Dose: 100 mls/hr Sodium Chloride (Normal Saline) 1,000 mls @ 100 mls/hr IV ASDIRECTED JULY Levothyroxine Sodium (Levothyroxine) 185 mcg PO ACBREAKFAST [facility] Metoprolol Succinate (Toprol Xl) 25 mg PO DAILY [facility] Non-Formulary Medication (Norgestrel-Ethinyl Estradiol [Lah-Rvorrnnz-80 Tablet] ) 1 tab PO BEDTIME JULY Ondansetron HCl (Zofran) 4 mg IV Q4H PRN PRN Reason: Nausea/Vomiting Simvastatin (Zocor) 40 mg PO BEDTIME JULY Trazodone HCl (Trazodone) 200 mg PO BEDTIME JULY Labs: Laboratory Tests 12/08/16 12/08/16 12/08/16 Range/Units 17:58 17:58 17:58 WBC 9.0 (4.5-12.0) X10-3/uL RBC 3.94 (3.23-5.20) x10(6)uL Hgb 11.3 L (11.5-15.5) g/dL Hct 33.9 (30.0-51.3) % MCV 86.0 (80-96) fL MCH 28.6 (27.7-33.6) pg MCHC 33.3 (32.2-35.4) g/dL RDW 16.4 H (11.5-15.5) % Plt Count 217 (125-369) X10(3)uL MPV 8.5 (7.4-10.4) fL Neut % (Auto) 53.9 (46-82) % Lymph % (Auto) 40.0 H (13-37) % [place] % (Auto) 4.4 (4-12) % Eos % (Auto) 1 (1.0-5.0) % Baso % (Auto) 1 (0-2) % Neut # (Auto) 4.8 (1.6-8.3) # Lymph # (Auto) 3.6 (0.6-5.0) # Amador # (Auto) 0.4 (0.0-1.3) # Eos # (Auto) 0.1 (0.0-0.8) # Baso # (Auto) 0.1 (0.0-0.2) # Sodium 133 L (135-145) mmol/L Potassium 3.8 (3.5-5.3) mmol/L Chloride 104 (100-110) mmol/L Carbon Dioxide 23 (23-29) mmol/L BUN 14 (5-20) mg/dL Creatinine 1.6 H (0.6-1.3) mg/dL Est Cr Clr Drug Dosing 41.81 mL/min Estimated GFR (MDRD) 34 L (>60) BUN/Creatinine Ratio 8.8 L (9-20) Glucose 118 H (80-116) mg/dL Calcium 8.7 (8.6-10.2) mg/dL Total Bilirubin 0.6 (0.1-1.3) mg/dL AST 18 (5-27) IU/L ALT 5 L (14-26) IU/L Alkaline Phosphatase 96 (56-112) IU/L Troponin I < 0.01 L (0.02-0.06) NG/ML Total Protein 6.9 (6.0-8.0) g/dL Albumin 3.5 (3.5-5.2) g/dL Globulin 3.4 g/dL Albumin/Globulin Ratio 1.0 Urine Color (YELLOW) Urine Appearance (CLEAR) Urine pH (5.0-6.5) Ur Specific [place] (1.010-1.025) Urine Protein (NEGATIVE) mg/dL Urine Glucose (UA) (NEGATIVE) mg/dL Urine Ketones (NEGATIVE) mg/dL Urine Occult Blood (NEGATIVE) Urine Nitrite (NEGATIVE) Urine Bilirubin (NEGATIVE) Urine Urobilinogen (NEGATIVE) mg/dL Ur Leukocyte Esterase (NEGATIVE) 12/08/16 Range/Units 18:35 WBC (4.5-12.0) X10-3/uL RBC (3.23-5.20) x10(6)uL Hgb (11.5-15.5) g/dL Hct (30.0-51.3) % MCV (80-96) fL MCH (27.7-33.6) pg MCHC (32.2-35.4) g/dL RDW (11.5-15.5) % Plt Count (125-369) X10(3)uL MPV (7.4-10.4) fL Neut % (Auto) (46-82) % Lymph % (Auto) (13-37) % [place] % (Auto) (4-12) % Eos % (Auto) (1.0-5.0) % Baso % (Auto) (0-2) % Neut # (Auto) (1.6-8.3) # Lymph # (Auto) (0.6-5.0) # Amador # (Auto) (0.0-1.3) # Eos # (Auto) (0.0-0.8) # Baso # (Auto) (0.0-0.2) # Sodium (135-145) mmol/L Potassium (3.5-5.3) mmol/L Chloride (100-110) mmol/L Carbon Dioxide (23-29) mmol/L BUN (5-20) mg/dL Creatinine (0.6-1.3) mg/dL Est Cr Clr Drug Dosing mL/min Estimated GFR (MDRD) (>60) BUN/Creatinine Ratio (9-20) Glucose (80-116) mg/dL Calcium (8.6-10.2) mg/dL Total Bilirubin (0.1-1.3) mg/dL AST (5-27) IU/L ALT (14-26) IU/L Alkaline Phosphatase (56-112) IU/L Troponin I (0.02-0.06) NG/ML Total Protein (6.0-8.0) g/dL Albumin (3.5-5.2) g/dL Globulin g/dL Albumin/Globulin Ratio Urine Color Yellow (YELLOW) Urine Appearance Clear (CLEAR) Urine pH 6.0 (5.0-6.5) Ur Specific [place] 1.010 (1.010-1.025) Urine Protein Negative (NEGATIVE) mg/dL Urine Glucose (UA) Normal (NEGATIVE) mg/dL Urine Ketones Negative (NEGATIVE) mg/dL Urine Occult Blood Negative (NEGATIVE) Urine Nitrite Negative (NEGATIVE) Urine Bilirubin Negative (NEGATIVE) Urine Urobilinogen Normal (NEGATIVE) mg/dL Ur Leukocyte Esterase Negative (NEGATIVE) Meds: Medications Generic Name Dose Route Start Last Admin Trade Name Freq PRN Reason Stop Dose Admin Heparin Sodium (Porcine) 5,000 units 12/08/16 21:30 Heparin Sodium SUBCUT Q8H JULY Sodium Chloride 1,000 mls @ 100 mls/hr 12/08/16 17:45 12/08/16 18:12 Normal Saline IV 100 mls/hr ASDIRECTED JULY Administration Sodium Chloride 1,000 mls @ 100 mls/hr 12/08/16 21:30 Normal Saline IV ASDIRECTED JULY Levothyroxine Sodium 185 mcg 12/09/16 07:30 Levothyroxine PO ACBREAKFAST JULY Metoprolol Succinate 25 mg 12/09/16 09:00 Toprol Xl PO DAILY JULY Non-Formulary Medication 1 tab 12/09/16 21:00 Norgestrel-Ethinyl Estradiol [Sep-Jfcffvso-35 Tablet] PO BEDTIME JULY Ondansetron HCl 4 mg 12/08/16 21:23 Zofran IV Q4H PRN Nausea/Vomiting Simvastatin 40 mg 12/09/16 21:00 Zocor PO BEDTIME JULY Trazodone HCl 200 mg 12/09/16 21:00 Trazodone PO BEDTIME JULY Discontinued Medications Generic Name Dose Route Start Last Admin Trade Name Freq PRN Reason Stop Dose Admin Heparin Sodium (Porcine) 300 units 12/08/16 18:48 Heparin Lock Flush 100 Units/Ml FLUSH 12/08/16 18:49 ASDIRECTED PRN keep port open Departure - Departure Time of Disposition: 22:15 Disposition: Refer to Observation Condition: Good Clinical Impression: KATEY (acute kidney injury) - My Orders Last 24 Hours: My Active Orders 12/08/16 17:45 Sodium Chloride 0.9% [Normal Saline] 1,000 ml IV ASDIRECTED - Assessment/Plan Last 24 Hours: My Active Orders 12/08/16 17:45 Sodium Chloride 0.9% [Normal Saline] 1,000 ml IV ASDIRECTED
[2016-12-08] MEDS: Sodium Chloride 0.9% 1,000 ML IV SCH (18:12)
[2016-12-08] MEDS ORDERED: Ondansetron 4 MG/2 ML SDV IV PRN (21:23)
[2016-12-08] MEDS ORDERED: Sodium Chloride 0.9% 1,000 ML IV SCH (21:30)
[2016-12-08] MEDS: Heparin Sodium 5,000 Units/ML Vial SUBCUT SCH (22:05)
[2016-12-08] MEDS ORDERED: traZODone 100 MG Tab PO ONE (22:49)
[2016-12-09] MEDS: Morphine 2 MG/ML Syringe IVPUSH PRN ×2 (00:41→07:45)
[2016-12-09] MEDS: Sodium Chloride 0.9% 1,000 ML IV SCH ×2 (03:15→13:31)
[2016-12-09] MEDS: Heparin Sodium 5,000 Units/ML Vial SUBCUT SCH ×2 (05:47→12:55)
[2016-12-09] MEDS ORDERED: Metoprolol Succinate 25 MG Tab.ER PO SCH (09:00)
--- NOTE | 2016-12-09 09:24 | PCM.HP ---
H&P History of Present Illness - General Date of Service: 12/09/16 Admit Problem/Dx: Admission Diagnosis/Problem Admission Diagnosis/Problem Dehydration History Limitations: Reports: No Limitations - History of Present Illness Initial Comments - Free Text/Narative: 46-year-old female reporting last night because of chest pain. She describes vague symptoms in the left chest side of the chest,palpitations and anxiety. She was given some morphine that seemed to help.she has a history of cardiomyopathy, stable and current chest pain with previous admissions for the same reason. Her symptoms currently start about 3 days ago and progressively getting worse. She presented to the emergency room for worsening symptoms. Also included some shortness of breath that was poorly characterized, dizziness and weakness. She has has a history of headache migraine type depression in stable she has been progressively weak. She denies any diaphoresis vomiting, weakness of one side fever chills cough Left Chest Pain Score (Numeric/FACES): 6 Headache Pain Score (Numeric/FACES): 7 Lower Back Pain Score (Numeric/FACES): 5 - Related Data Allergies/Adverse Reactions: Allergies Allergy/AdvReac Type Severity Reaction Status Date / Time Penicillins Allergy Unknown Hives Verified 12/08/16 17:40 Sulfa (Sulfonamide Allergy Rash Verified 12/08/16 17:40 Antibiotics) aspirin AdvReac Stomach Verified 12/08/16 17:40 Upset propoxyphene napsylate AdvReac Stomach Verified 12/08/16 17:40 [From Darzachariaht-N] Upset Home Medications: Home Meds Norgestrel-Ethinyl Estradiol [Mnj-Vfhhktff-57 Tablet] 1 tab PO BEDTIME 08/25/15 [History] Simvastatin 40 mg PO BEDTIME 11/16/15 [History] Lisinopril 5 mg PO DAILY 02/29/16 [History] Metoprolol Succinate [Toprol XL] 25 mg pe PO DAILY 04/27/16 [History] traZODone 200 mg PO BEDTIME 12/08/16 [History] Levothyroxine Sodium 88 mcg PO 0600 12/09/16 [History] Levothyroxine Sodium [Synthroid] 100 mcg PO 0600 12/09/16 [History] Past Medical History - Past Health History Medical/Surgical History: Denies Medical/Surgical History HEENT History: Reports: Impaired Vision Cardiovascular History: Reports: High Cholesterol, Hypertension, SOB on Exertion Other Cardiovascular History: broken heart syndrome Respiratory History: Reports: Bronchitis, Recurrent, Sleep Apnea, SOB Gastrointestinal History: Reports: Gastritis Other Gastrointestinal History: Obese. 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 Right foot fracture. Wrist surgery. Neurological History: Reports: Vertigo Psychiatric History: Reports: Anxiety, Depression Endocrine/Metabolic History: Reports: Diabetes, Type II, Obesity/BMI 30+ Other Endocrine/Metabolic History: hx throid storm - Infectious Disease History Infectious Disease History: Reports: Influenza - Past Surgical History GI Surgical History: Reports: Other (See Below) Endocrine Surgical History: Reports: Other (See Below) Musculoskeletal Surgical History: Reports: Shoulder Surgery Social & Family History - Family History Family Medical History: Noncontributory Other Cardiac Family History: Mom had open heart surgery, pt unsure of what surgery was for. Musculoskeletal: Reports: Arthritis, Gout, Osteoporosis Endocrine/Metabolic: Reports: Diabetes, type II, Osteoporosis Oncologic: Reports: Lung - Tobacco Use Smoking Status *Q: Never Smoker Years of Tobacco use: 13 Packs/Tins Daily: 1 Used Tobacco, but Quit: No Second Hand Smoke Exposure: No - Caffeine Use Caffeine Use: Reports: None Other Caffeine Use: Neil Yello 1 per day - Alcohol Use Days Per Week of Alcohol Use: 0 - Recreational Drug Use Recreational Drug Use: No Drug Use in Last 12 Months: No - Living Situation & Occupation Living situation: Reports: , with Family Occupation: Unemployed H&P Review of Systems - Review of Systems: Review Of Systems: ROS reveals no pertinent complaints other than HPI. Exam - Exam Exam: See Below - Vital Signs Vital Signs: Last Vital Signs Temp 98.2 F 12/09/16 07:40 Pulse 80 12/09/16 07:40 Resp 16 12/09/16 07:40 BP 100/63 12/09/16 07:40 Pulse Ox 98 12/09/16 07:40 Weight: 95.844 kg - Exam General: Alert, Oriented, 4 HEENT: PERRLA, Hearing Intact, Mucosa Moist & [place], Nares Patent, Normal Nasal Septum, Posterior Pharynx Clear, Conjunctiva Clear, EOMI, EACs Clear, TMs Clear Neck: Supple, Trachea Midline, 2 Lungs: Clear to Auscultation, Normal Respiratory Effort Cardiovascular: Regular Rate, Regular Rhythm Abdomen: Normal Bowel Sounds, Soft (Female) Exam: Deferred Rectal (Female) Exam: Deferred Back Exam: Normal Inspection, Full Range of Motion, NT Extremities: 3, Normal Inspection, 10 Skin: Warm, Dry, Intact Neurological: Cranial Nerves Intact, Reflexes Equal Bilateral Neuro Extensive - Mental Status: Alert, Oriented x3, Normal Mood/Affect, Normal Cognition Neuro Extensive - Motor, Sensory, Reflexes: CN II-XII Intact, Normal Gait, Normal Reflexes Psychiatric: Alert, Normal Affect, Normal Mood - Patient Data Result Diagrams: 12/08/16 17:58 12/09/16 10:30 EKG INTERPRETATION Rhythm: NSR *Q Meaningful Use (ADM) - VTE *Q VTE Criteria *Q: - Stroke *Q Stroke Criteria *Q: - AMI *Q AMI Criteria *Q: - Problem List (1) KATEY (acute kidney injury) SNOMED Code(s): 98087528 ICD Code: N17.9 - ACUTE KIDNEY FAILURE, UNSPECIFIED Status: Acute Current Visit: Yes (2) Atypical chest pain SNOMED Code(s): 605979607 ICD Code: R07.89 - OTHER CHEST PAIN Status: Acute Current Visit: No Problem Details: Tracy can manage atypical chest pain with analgesics such as Tylenol. She may resume maintenance meds. (3) HTN, Benign essential hypertension SNOMED Code(s): 6286652 ICD Code: I10 - ESSENTIAL (PRIMARY) HYPERTENSION Status: Chronic Priority : Medium Current Visit: No Problem Details: on medications Started on lisinopril/hctz. will follow bp and bmp outpt. (4) Mood disorder SNOMED Code(s): 20335855 ICD Code: F39 - UNSPECIFIED MOOD [AFFECTIVE] DISORDER Status: Chronic Current Visit: No Problem Details: will continue her home medications at this time. Problem List Initiated/Reviewed/Updated: Yes Orders Last 24hrs: Active Orders 24 hr Category Date Time Status Admission Status [Patient Status] [ADT] Routine ADT 12/08/16 22:41 Active Oxygen Therapy [RC] PRN Care 12/08/16 21:23 Active Up ad Jamee [RC] ASDIRECTED Care 12/08/16 21:23 Active Vital Signs [RC] 04,08,12,16,20,00 Care 12/08/16 21:23 Active Regular Diet [DIET] Diet 12/09/16 Breakfast Active BASIC METABOLIC PANEL,BMP [CHEM] Stat Lab 12/09/16 09:23 Ordered Heparin Sodium Med 12/08/16 21:30 Active 5,000 units SUBCUT Q8H Levothyroxine [Synthroid] Med 12/09/16 10:00 Active 100 mcg PO ACBREAKFAST Levothyroxine [Synthroid] Med 12/09/16 10:00 Active 88 mcg PO ACBREAKFAST Metoprolol Succinate [Toprol XL] Med 12/09/16 09:00 Active 25 mg PO DAILY Morphine Med 12/08/16 23:47 Active 2 mg IVPUSH Q4H PRN Norgestrel-Ethinyl Estradiol [Jip-Qnbdagaz-74 Tablet] Med 12/09/16 21:00 Active 1 tab PO BEDTIME Ondansetron [Zofran] Med 12/08/16 21:23 Active 4 mg IV Q4H PRN Simvastatin [Zocor] Med 12/09/16 21:00 Active 40 mg PO BEDTIME Sodium Chloride 0.9% [Normal Saline] 1,000 ml Med 12/08/16 21:30 Active IV ASDIRECTED traZODone Med 12/09/16 21:00 Active 200 mg PO BEDTIME Antiembolic Hose [OM.PC] Per Unit Routine Oth 12/08/16 21:24 Ordered Resuscitation Status Routine Resus Stat 12/08/16 21:23 Ordered Medication Orders Heparin Sodium (Porcine) (Heparin Sodium) 5,000 units SUBCUT Q8H [facility] Last Admin: 12/09/16 05:47 Dose: 5,000 units Admin: 12/08/16 22:05 Dose: 5,000 units Sodium Chloride (Normal Saline) 1,000 mls @ 100 mls/hr IV ASDIRECTED [facility] Last Admin: 12/09/16 03:15 Dose: 100 mls/hr Infusion: 12/09/16 03:15 Dose: 100 mls/hr Admin: 12/08/16 18:12 Dose: 100 mls/hr Sodium Chloride (Normal Saline) 1,000 mls @ 100 mls/hr IV ASDIRECTED [facility] Levothyroxine Sodium (Synthroid) 100 mcg PO ACBREAKFAST JULY Levothyroxine Sodium (Synthroid) 88 mcg PO ACBREAKFAST JULY Metoprolol Succinate (Toprol Xl) 25 mg PO DAILY JULY Morphine Sulfate (Morphine) 2 mg IVPUSH Q4H PRN PRN Reason: Pain Last Admin: 12/09/16 07:45 Dose: 2 mg Admin: 12/09/16 00:41 Dose: 2 mg Non-Formulary Medication (Norgestrel-Ethinyl Estradiol [Bxy-Xlvdyupp-79 Tablet] ) 1 tab PO BEDTIME JULY Ondansetron HCl (Zofran) 4 mg IV Q4H PRN PRN Reason: Nausea/Vomiting Simvastatin (Zocor) 40 mg PO BEDTIME JULY Trazodone HCl (Trazodone) 200 mg PO BEDTIME JULY Assessment/Plan Comment:: when I saw this morning she still has some pain which was controlled by morphine. I ordered a d-dimer which was slightly elevated at 1100. CT angiogram is negative for any PE. Troponins negative 2. I find no symptoms of cardiac disease disease. I'll send her home to use her home medications and for approximately 2 weeks
[2016-12-09 09:46] VITALS: BP 124/82
[2016-12-09] MEDS ORDERED: Levothyroxine 100 MCG Tab PO SCH (10:00)
[2016-12-09] MEDS ORDERED: Levothyroxine 88 MCG Tab PO SCH (10:00)
[2016-12-09] MEDS ORDERED: Sodium Chloride 0.9% 10 ML Syringe FLUSH PRN (10:33)
[2016-12-09] MEDS ORDERED: Ketorolac 30 MG/ML SDV IVPUSH PRN (15:24)
[2016-12-09] MEDS ORDERED: Iopamidol 755 Mg/ML 100 ML Bottle IV ONE (16:15)
[2016-12-09] MEDS ORDERED: [UNRECOGNIZED DRUG - OTHER] PO SCH (21:00)
[2016-12-09] MEDS ORDERED: Simvastatin 40 MG Tab PO SCH (21:00)
[2016-12-09] MEDS ORDERED: traZODone 100 MG Tab PO SCH (21:00)
[2016-12-09] MEDS ORDERED: traZODone 100 MG Tab PO ONE (22:23)
--- NOTE | 2016-12-10 14:00 | CR ---
INDICATION: Chest pain. COMPARISON: 12 November 2016. PA AND LATERAL CHEST: Minimal perihilar, bibasilar subsegmental atelectasis, and/or parenchymal scarring change, stable. Mild cardiomegaly, no interstitial edema. Mild blunting of the costophrenic angles and posterior costophrenic sulci bilaterally, new. Right subclavian venous catheter, thoracic port stable. No pneumothorax. No other interval change. IMPRESSION: 1. Minimal perihilar, bibasilar subsegmental atelectasis, and/or parenchymal scarring change, stable. 2. Minimal bilateral pleural effusions, new. MTDD
== END 2016-12-09 18:15 | disposition home or self-care (01) ==
LOC: FB.ED 17:23 → FB.MS 20:45
PROVIDERS: ADMIT Internal Medicine; ATTEND Family Medicine
DX: N17.9 Acute kidney failure, unspecified (principal); R07.89 Other chest pain; I10 Essential (primary) hypertension; F39 Unspecified mood [affective] disorder; E78.00 Pure hypercholesterolemia, unspecified; G47.30 Sleep apnea, unspecified; E66.9 Obesity, unspecified; F41.9 Anxiety disorder, unspecified; F32.9 Major depressive disorder, single episode, unspecified; E11.9 Type 2 diabetes mellitus without complications; Z68.30 Body mass index [BMI] 30.0-30.9, adult; Z88.0 Allergy status to penicillin; Z88.2 Allergy status to sulfonamides; Z88.8 Allergy status to other drugs, medicaments and biological substances; Z79.899 Other long term (current) drug therapy; Z98.890 Other specified postprocedural states
CPT/HCPCS: 36415; 71020; 71275; 80048; 80053; 81003; 84484; 85025; 85379; 96361; 96372; 96374; 96375; 96376; 99285; A9270; G0378; J1642; J1644; J1885; J2270; J7040; J7050; Q9967; 96360; 99219

== ENCOUNTER 2017-01-14 13:31 | Emergency (ER) | payer MEDICAID ==
--- NOTE | 2017-01-14 13:50 | EDM.PDOC ---
ED HPI GENERAL MEDICAL PROBLEM - General Chief Complaint: Chest Pain Stated Complaint: RAPID HEART RATE Time Seen by Provider: 01/14/17 13:35 Source of Information: Reports: Patient, EMS, Old Records History Limitations: Reports: Other (poor historian) - History of Present Illness INITIAL COMMENTS - FREE TEXT/NARRATIVE: 46 yo female with a complicated medical hx presents via EMS after developing a pounding heart and SOB while moving light boxes at work. EMS noted HTN, no tachycardia. They gave one dose of NTG SL without any subjective changes in her sx's. She denies missing any meds recently. Is feeling somewhat better on arrival. EKG in the field was unremarkable. Onset: Today Onset Date: 01/14/17 Onset Time: 13:00 Duration: Minutes:, Improving Location: Reports: Chest Quality: Reports: Dull Severity: Mild Improves with: Reports: Other (time, ? NTG) Worsens with: Reports: Movement Context: Reports: Other (Hx of heart dz, was moving light boxes at work at the time of onset.) Associated Symptoms: Reports: Shortness of Breath. 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: Reports: Nitroglycerin Left Chest Pain Score (Numeric/FACES): 7 - Related Data Allergies Allergy/AdvReac Type Severity Reaction Status Date / Time Penicillins Allergy Unknown Hives Verified 01/14/17 13:42 Sulfa (Sulfonamide Allergy Rash Verified 01/14/17 13:42 Antibiotics) aspirin AdvReac Stomach Verified 01/14/17 13:42 Upset propoxyphene napsylate AdvReac Stomach Verified 01/14/17 13:42 [From Darzachariaht-N] Upset Home Meds: Home Meds Norgestrel-Ethinyl Estradiol [[id number] Tablet] 1 tab PO BEDTIME 08/25/15 [History] Simvastatin 40 mg PO BEDTIME 11/16/15 [History] Lisinopril 5 mg PO DAILY 02/29/16 [History] Metoprolol Succinate [Toprol XL] 25 mg pe PO DAILY 04/27/16 [History] traZODone 200 mg PO BEDTIME 12/08/16 [History] Levothyroxine Sodium 88 mcg PO 0600 12/09/16 [History] Levothyroxine Sodium [Synthroid] 100 mcg PO 0600 12/09/16 [History] Past Medical History - Past Health History Medical/Surgical History: Denies Medical/Surgical History HEENT History: Reports: Impaired Vision Cardiovascular History: Reports: High Cholesterol, Hypertension, SOB on Exertion Other Cardiovascular History: broken heart syndrome Respiratory History: Reports: Bronchitis, Recurrent, Sleep Apnea, SOB Gastrointestinal History: Reports: Gastritis Other Gastrointestinal History: Obese. 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 Right foot fracture. Wrist surgery. Neurological History: Reports: Vertigo Psychiatric History: Reports: Anxiety, Depression Endocrine/Metabolic History: Reports: Diabetes, Type II, Obesity/BMI 30+ Other Endocrine/Metabolic History: hx throid storm - Infectious Disease History Infectious Disease History: Reports: Influenza - Past Surgical History GI Surgical History: Reports: Other (See Below) Endocrine Surgical History: Reports: Other (See Below) Musculoskeletal Surgical History: Reports: Shoulder Surgery Social & Family History - Family History Family Medical History: Noncontributory Other Cardiac Family History: Mom had open heart surgery, pt unsure of what surgery was for. Musculoskeletal: Reports: Arthritis, Gout, Osteoporosis Endocrine/Metabolic: Reports: Diabetes, type II, Osteoporosis Oncologic: Reports: Lung - Tobacco Use Smoking Status *Q: Never Smoker Years of Tobacco use: 13 Packs/Tins Daily: 1 Used Tobacco, but Quit: No Second Hand Smoke Exposure: No - Caffeine Use Caffeine Use: Reports: None Other Caffeine Use: Neil Yello 1 per day - Alcohol Use Days Per Week of Alcohol Use: 0 - Recreational Drug Use Recreational Drug Use: No Drug Use in Last 12 Months: No - Living Situation & Occupation Living situation: Reports: , with Family Occupation: Unemployed ED ROS GENERAL - Review of Systems Review Of Systems: See Below Constitutional: Reports: No Symptoms HEENT: Reports: No Symptoms Respiratory: Reports: Shortness of Breath Cardiovascular: Reports: Other (tachycardia) Endocrine: Reports: No Symptoms GI/Abdominal: Reports: No Symptoms : Reports: No Symptoms Musculoskeletal: Reports: No Symptoms Skin: Reports: No Symptoms Neurological: Reports: No Symptoms Psychiatric: Reports: No Symptoms ED EXAM, GENERAL - Physical Exam Exam: See Below Exam Limited By: No Limitations General Appearance: Alert, WD/WN, No Apparent Distress Eye Exam: Bilateral Eye: Normal Inspection Ears: Normal External Exam, Normal Canal, Hearing Grossly Normal, Normal TMs Ear Exam: Bilateral Ear: Auricle Normal, Canal Normal, TM normal Nose: Normal Inspection, Normal Mucosa, No Blood Throat/Mouth: Normal Inspection, Normal Lips, Normal Oropharynx, Normal Voice, No Airway Compromise Head: Atraumatic, Normocephalic Neck: Normal Inspection, Supple Respiratory/Chest: No Respiratory Distress, Lungs Clear, Normal Breath Sounds, No Accessory Muscle Use Cardiovascular: Regular Rate, Rhythm, No Edema GI/Abdominal: Normal Bowel Sounds, Soft, Non-Tender, No Distention Back Exam: Normal Inspection, Other. No: CVA Tenderness (R), CVA Tenderness (L) Extremities: Normal Inspection, Normal Range of Motion, No Pedal Edema Neurological: Alert, Oriented, CN II-XII Intact, Normal Cognition, No Motor/ Sensory Deficits Psychiatric: Normal Affect, Normal Mood Skin Exam: Warm, Dry, Intact, Normal Color, No Rash Lymphatic: No Adenopathy Course - Vital Signs Text/Narrative:: Orthostatic vitals- Last Recorded V/S: Last Vital Signs Temp 37.3 C 01/14/17 13:44 Pulse 92 01/14/17 13:44 Resp 11 L 01/14/17 13:44 BP 170/87 H 01/14/17 13:44 Pulse Ox 100 01/14/17 13:44 Orthostatic Blood Pressure [ 152/92 Standing] Orthostatic Blood Pressure [ 177/97 Sitting] Orthostatic Blood Pressure [ 149/92 Supine] - Orders/Labs/Meds Orders: Active Orders 24 hr Category Date Time Status Implanted Port Access [RC] ASDIRECTED Care 01/14/17 13:48 Active Orthostatic Vital Signs [RC] ASDIRECTED Care 01/14/17 13:43 Active MAGNESIUM [CHEM] Stat Lab 01/14/17 13:55 Received UA W/MICROSCOPIC [URIN] Stat Lab 01/14/17 13:43 Ordered EKG 12 Lead [EK] Routine Ther 01/14/17 13:41 Ordered Labs: Laboratory Tests 01/14/17 01/14/17 01/14/17 Range/Units 13:59 13:59 13:59 WBC 7.1 (4.5-12.0) X10-3/uL RBC 3.75 (3.23-5.20) x10(6)uL Hgb 11.6 (11.5-15.5) g/dL Hct 33.8 (30.0-51.3) % MCV 90.1 (80-96) fL MCH 30.8 (27.7-33.6) pg MCHC 34.2 (32.2-35.4) g/dL RDW 17.2 H (11.5-15.5) % Plt Count 274 (125-369) X10(3)uL Sodium 140 (135-145) mmol/L Potassium 3.4 L (3.5-5.3) mmol/L Chloride 110 (100-110) mmol/L Carbon Dioxide 23 (23-29) mmol/L BUN 10 (5-20) mg/dL Creatinine 1.0 (0.6-1.3) mg/dL Est Cr Clr Drug Dosing 66.90 mL/min Estimated GFR (MDRD) 59 L (>60) BUN/Creatinine Ratio 10.0 (9-20) Glucose 144 H (80-116) mg/dL Calcium 8.8 (8.6-10.2) mg/dL Troponin I < 0.01 L (0.02-0.06) NG/ML Meds: Medications Discontinued Medications Generic Name Dose Route Start Last Admin Trade Name Pierceq PRN Reason Stop Dose Admin Lisinopril 10 mg 01/14/17 14:31 Prinivil PO 01/14/17 14:32 ONETIME ONE Potassium Chloride 20 meq 01/14/17 14:26 Klor-Con 10 PO 01/14/17 14:27 ONETIME ONE Departure - Departure Time of Disposition: 14:50 Disposition: Home, Self-Care 01 Condition: Fair Clinical Impression: Hypokalemia HTN (hypertension) Qualifiers: Hypertension type: essential hypertension Qualified Code(s): I10 - Essential ( primary) hypertension Forms: ED Department Discharge - My Orders Last 24 Hours: My Active Orders 01/14/17 13:41 EKG 12 Lead [EK] Routine 01/14/17 13:43 Orthostatic Vital Signs [RC] ASDIRECTED UA W/MICROSCOPIC [URIN] Stat 01/14/17 13:48 Implanted Port Access [RC] ASDIRECTED 01/14/17 13:55 MAGNESIUM [CHEM] Stat - Assessment/Plan Last 24 Hours: My Active Orders 01/14/17 13:41 EKG 12 Lead [EK] Routine 01/14/17 13:43 Orthostatic Vital Signs [RC] ASDIRECTED UA W/MICROSCOPIC [URIN] Stat 01/14/17 13:48 Implanted Port Access [RC] ASDIRECTED 01/14/17 13:55 MAGNESIUM [CHEM] Stat
[2017-01-14] MEDS ORDERED: Potassium Chloride 10 MEQ Tab.ER PO ONE (14:26)
[2017-01-14] MEDS ORDERED: Lisinopril 10 MG Tab PO ONE (14:31)
[2017-01-14 15:45] VITALS: BP 146/75
== END 2017-01-14 15:24 | disposition home or self-care (01) ==
LOC: FB.ED 13:31
DX: I10 Essential (primary) hypertension (principal); E87.6 Hypokalemia; F41.9 Anxiety disorder, unspecified; E11.9 Type 2 diabetes mellitus without complications; E66.9 Obesity, unspecified; E78.00 Pure hypercholesterolemia, unspecified; F32.9 Major depressive disorder, single episode, unspecified; Z88.0 Allergy status to penicillin; Z88.2 Allergy status to sulfonamides; Z88.5 Allergy status to narcotic agent; Z88.8 Allergy status to other drugs, medicaments and biological substances; Z79.899 Other long term (current) drug therapy; Z68.32 Body mass index [BMI] 32.0-32.9, adult
CPT/HCPCS: 36415; 80048; 81001; 83735; 84484; 85027; 93005; 99285; A9270; J1642

== ENCOUNTER 2017-06-04 19:31 | Emergency (ER) | payer BC, SELFPAY ==
--- NOTE | 2017-06-04 20:29 | EDM.PDOC ---
ED HPI GENERAL MEDICAL PROBLEM - General Chief Complaint: General Stated Complaint: BACK PAIN Time Seen by Provider: 06/04/17 20:00 Source of Information: Reports: Patient, Old Records History Limitations: Reports: No Limitations - History of Present Illness INITIAL COMMENTS - FREE TEXT/NARRATIVE: Tracy returns to [facility] ED with a 36 hr hx of generalized myalgias, initially in the back and now affecting the upper extremities. There is no reported fever, chills, sweats, GI or sxs, and no rash. She has tried Tylenol for sx relief. She has not had a Fluvax. whole body Pain Score (Numeric/FACES): 8 - Related Data Allergies Allergy/AdvReac Type Severity Reaction Status Date / Time Penicillins Allergy Unknown Hives Verified 06/04/17 20:12 Sulfa (Sulfonamide Allergy Rash Verified 06/04/17 20:12 Antibiotics) aspirin AdvReac Stomach Verified 06/04/17 20:12 Upset propoxyphene napsylate AdvReac Stomach Verified 06/04/17 20:12 [From Gera-N] Upset Home Meds: Home Meds Norgestrel-Ethinyl Estradiol [[id number]-85 Tablet] 1 tab PO BEDTIME 08/25/15 [History] Lisinopril 5 mg PO DAILY 02/29/16 [History] Metoprolol Succinate [Toprol XL] 25 mg pe PO DAILY 04/27/16 [History] Amitriptyline [Elavil] 25 mg PO DAILY PRN 06/04/17 [History] Levothyroxine 200 mcg PO DAILY 06/04/17 [History] tiZANidine [Zanaflex] 4 mg PO DAILY 06/04/17 [History] Past Medical History - Past Health History Medical/Surgical History: Denies Medical/Surgical History HEENT History: Reports: Impaired Vision Cardiovascular History: Reports: High Cholesterol, Hypertension, SOB on Exertion Other Cardiovascular History: broken heart syndrome Respiratory History: Reports: Bronchitis, Recurrent, Sleep Apnea, SOB Gastrointestinal History: Reports: Gastritis Other Gastrointestinal History: Obese. 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 Right foot fracture. Wrist surgery. Neurological History: Reports: Vertigo Psychiatric History: Reports: Anxiety, Depression Endocrine/Metabolic History: Reports: Diabetes, Type II, Obesity/BMI 30+ Other Endocrine/Metabolic History: hx throid storm - Infectious Disease History Infectious Disease History: Reports: Influenza - Past Surgical History GI Surgical History: Reports: Other (See Below) Endocrine Surgical History: Reports: Other (See Below) Musculoskeletal Surgical History: Reports: Shoulder Surgery Social & Family History - Family History Family Medical History: Noncontributory Other Cardiac Family History: Mom had open heart surgery, pt unsure of what surgery was for. Musculoskeletal: Reports: Arthritis, Gout, Osteoporosis Endocrine/Metabolic: Reports: Diabetes, type II, Osteoporosis Oncologic: Reports: Lung - Tobacco Use Smoking Status *Q: Never Smoker Years of Tobacco use: 13 Packs/Tins Daily: 1 Used Tobacco, but Quit: No Second Hand Smoke Exposure: No - Caffeine Use Caffeine Use: Reports: None Other Caffeine Use: Neil Yello 1 per day - Alcohol Use Days Per Week of Alcohol Use: 0 - Recreational Drug Use Recreational Drug Use: No Drug Use in Last 12 Months: No - Living Situation & Occupation Living situation: Reports: , with Family Occupation: Unemployed ED ROS GENERAL - Review of Systems Review Of Systems: See Below Constitutional: Reports: Malaise, Fatigue HEENT: Reports: No Symptoms Respiratory: Reports: No Symptoms Cardiovascular: Reports: No Symptoms Endocrine: Reports: Fatigue GI/Abdominal: Reports: No Symptoms : Reports: No Symptoms Musculoskeletal: Reports: Shoulder Pain, Arm Pain, Back Pain, Muscle Pain Skin: Reports: No Symptoms Neurological: Reports: Headache Psychiatric: Reports: No Symptoms Hematologic/Lymphatic: Reports: No Symptoms Immunologic: Reports: No Symptoms ED EXAM, GENERAL - Physical Exam Exam: See Below Exam Limited By: No Limitations General Appearance: Alert, WD/WN, No Apparent Distress Eye Exam: Bilateral Eye: EOMI, Normal Inspection, PERRL Ears: Normal External Exam, Normal TMs Nose: Normal Inspection, Normal Mucosa Throat/Mouth: Normal Inspection, Normal Lips, Normal Gums, Normal Oropharynx Head: Normocephalic Neck: Normal Inspection, Supple, Non-Tender, Full Range of Motion Respiratory/Chest: Lungs Clear, Normal Breath Sounds, Chest Non-Tender Cardiovascular: Regular Rate, Rhythm, No Murmur GI/Abdominal: Normal Bowel Sounds, Soft, Non-Tender, No Organomegaly, No Distention, No Mass (Female) Exam: Deferred Rectal (Female) Exam: Deferred Back Exam: Normal Inspection, Full Range of Motion Extremities: Normal Inspection, Normal Range of Motion, Arm Pain Neurological: Alert, Oriented, CN II-XII Intact, Normal Cognition, Normal Gait, Normal Reflexes, No Motor/Sensory Deficits Psychiatric: Depressed Mood Skin Exam: Warm, Dry, Intact Lymphatic: No Adenopathy Course - Vital Signs Text/Narrative:: Following assessment at the [facility] ED, screening labs were ordered, and I administered Toradol 30 mg IM for comfort pending labs: all labs were baseline. There was some improvement with the Toradol. Last Recorded V/S: Last Vital Signs Temp 36.6 C 06/04/17 19:35 Pulse 70 06/04/17 19:35 Resp 15 06/04/17 19:35 BP 88/56 L 06/04/17 19:35 Pulse Ox - Orders/Labs/Meds Labs: Laboratory Tests 06/04/17 06/04/17 06/04/17 Range/Units 20:30 20:30 21:10 WBC 8.2 (4.5-12.0) X10-3/uL RBC 3.78 (3.23-5.20) x10(6)uL Hgb 11.1 L (11.5-15.5) g/dL Hct 33.1 (30.0-51.3) % MCV 87.7 (80-96) fL MCH 29.3 (27.7-33.6) pg MCHC 33.5 (32.2-35.4) g/dL RDW 15.8 H (11.5-15.5) % Plt Count 256 (125-369) X10(3)uL MPV 7.9 (7.4-10.4) fL Neut % (Auto) 52.1 (46-82) % Lymph % (Auto) 37.4 H (13-37) % Otoe % (Auto) 7.0 (4-12) % Eos % (Auto) 2 (1.0-5.0) % Baso % (Auto) 2 (0-2) % Neut # (Auto) 4.2 (1.6-8.3) # Lymph # (Auto) 3.1 (0.6-5.0) # Otoe # (Auto) 0.6 (0.0-1.3) # Eos # (Auto) 0.1 (0.0-0.8) # Baso # (Auto) 0.2 (0.0-0.2) # Sodium 140 (135-145) mmol/L Potassium 4.5 (3.5-5.3) mmol/L Chloride 105 (100-110) mmol/L Carbon Dioxide 26 (21-32) mmol/L BUN 21 H (7-18) mg/dL Creatinine 1.3 H (0.55-1.02) mg/dL Est Cr Clr Drug Dosing 50.90 mL/min Estimated GFR (MDRD) 44 L (>60) BUN/Creatinine Ratio 16.2 (9-20) Glucose 85 (80-116) mg/dL Calcium 8.3 L (8.6-10.2) mg/dL Creatine Kinase 115 (60-160) IU/L Urine Color Yellow (YELLOW) Urine Appearance Clear (CLEAR) Urine pH 6.0 (5.0-6.5) Ur Specific Tyler 1.015 (1.010-1.025) Urine Protein Negative (NEGATIVE) mg/dL Urine Glucose (UA) Normal (NEGATIVE) mg/dL Urine Ketones Negative (NEGATIVE) mg/dL Urine Occult Blood Moderate H (NEGATIVE) Urine Nitrite Negative (NEGATIVE) Urine Bilirubin Moderate H (NEGATIVE) Urine Urobilinogen 4 H (NEGATIVE) mg/dL Ur Leukocyte Esterase Negative (NEGATIVE) Urine RBC 5-10 (0) Urine WBC 0-5 (0) Ur Squamous Epith Cells Few H (NS,R,O) Urine Bacteria Few H (NS) Urine Mucus Occasional H (NS) Meds: Medications Discontinued Medications Generic Name Dose Route Start Last Admin Trade Name Freq PRN Reason Stop Dose Admin Ketorolac Tromethamine 30 mg 06/04/17 20:23 06/04/17 21:10 Toradol IM 06/04/17 20:24 30 mg ONETIME ONE Administration Departure - Departure Time of Disposition: 21:41 Disposition: Home, Self-Care 01 Condition: Fair Clinical Impression: Viral illness - Discharge Information Referrals: Remy Raymundo MD [Primary Care Provider] - Forms: ED Department Discharge - Problem List & Annotations (1) Viral illness SNOMED Code(s): 82688595 Code(s): B34.9 - VIRAL INFECTION, UNSPECIFIED Status: Acute Current Visit : Yes Annotation/Comment:: Suspected viral illness NOS. I suggested hydration , sxs cares, analgesic of choice, and rest. She may go to work tomorrow if able. - Problem List Review Problem List Initiated/Reviewed/Updated: Yes - Assessment/Plan Plan: Follow up with PCP.
[2017-06-04] MEDS: Ketorolac 30 MG/ML SDV IM ONE (21:10)
[2017-06-04 21:52] VITALS: BP 102/78
== END 2017-06-04 21:51 | disposition home or self-care (01) ==
LOC: FB.ED 19:31
DX: B34.9 Viral infection, unspecified (principal); I10 Essential (primary) hypertension; E78.00 Pure hypercholesterolemia, unspecified; E11.9 Type 2 diabetes mellitus without complications; F32.9 Major depressive disorder, single episode, unspecified; Z79.899 Other long term (current) drug therapy; Z88.0 Allergy status to penicillin; Z88.2 Allergy status to sulfonamides; Z88.6 Allergy status to analgesic agent
CPT/HCPCS: 36415; 80048; 81001; 82550; 85025; 96372; 99283; J1885

== ENCOUNTER 2017-12-04 18:10 | Emergency (ER) | payer BC, MEDICAID, OTHER ==
--- NOTE | 2017-12-04 18:37 | EDM.PDOC ---
ED HPI GENERAL MEDICAL PROBLEM - General Chief Complaint: Cardiovascular Problem Stated Complaint: LOW BLOOD PRESSURE Time Seen by Provider: 12/04/17 18:25 Source of Information: Reports: Patient, Old Records History Limitations: Reports: No Limitations - History of Present Illness INITIAL COMMENTS - FREE TEXT/NARRATIVE: Tracy comes into [facility] ED with sxs of headache, malaise, fatigue, and dizziness. She is not reporting any chest pain, SOB, abdominal pain, back pain or voiding sxs. Her Type II DM has been stable with diet and exercise, and she did not check a FBS today. She did have an upwards dosage adjustment of her Lisinopril about a week ago from 5 to 10 mg per day, and admitting BP 88/74, VR 55. There is a remote hx of dehydration, and she has an indwelling port for access. - Related Data Allergies Allergy/AdvReac Type Severity Reaction Status Date / Time Penicillins Allergy Unknown Hives Verified 12/04/17 18:16 Sulfa (Sulfonamide Allergy Rash Verified 12/04/17 18:16 Antibiotics) aspirin AdvReac Stomach Verified 12/04/17 18:16 Upset propoxyphene napsylate AdvReac Stomach Verified 12/04/17 18:16 [From Darvocet-N] Upset Home Meds: Home Meds Norgestrel-Ethinyl Estradiol [Wob-Dffiydis-02 Tablet] 1 tab PO BEDTIME 08/25/15 [History] Lisinopril 10 mg PO DAILY 02/29/16 [History] Metoprolol Succinate [Toprol XL] 25 mg pe PO DAILY 04/27/16 [History] Amitriptyline [Elavil] 25 mg PO DAILY PRN 06/04/17 [History] Levothyroxine 200 mcg PO DAILY 06/04/17 [History] tiZANidine [Zanaflex] 4 mg PO BEDTIME 06/04/17 [History] Past Medical History - Past Health History Medical/Surgical History: Denies Medical/Surgical History HEENT History: Reports: Impaired Vision Cardiovascular History: Reports: High Cholesterol, Hypertension, SOB on Exertion Other Cardiovascular History: broken heart syndrome Respiratory History: Reports: Bronchitis, Recurrent, Sleep Apnea, SOB Gastrointestinal History: Reports: Gastritis Other Gastrointestinal History: Obese. Genitourinary History: Reports: Renal Disease REVIEW RN History: Reports: , Other (See Below) Other REVIEW RN History: Musculoskeletal History: Reports: Back Pain, Chronic Other Musculoskeletal History: Torn L rotator cuff. Right foot fracture. Wrist surgery. Neurological History: Reports: Vertigo Psychiatric History: Reports: Anxiety, Depression Endocrine/Metabolic History: Reports: Diabetes, Type II, Obesity/BMI 30+ Other Endocrine/Metabolic History: hx throid storm - Infectious Disease History Infectious Disease History: Reports: Influenza - Past Surgical History GI Surgical History: Reports: Other (See Below) Endocrine Surgical History: Reports: Other (See Below) Musculoskeletal Surgical History: Reports: Shoulder Surgery Social & Family History - Family History Family Medical History: Noncontributory Other Cardiac Family History: Mom had open heart surgery, pt unsure of what surgery was for. Musculoskeletal: Reports: Arthritis, Gout, Osteoporosis Endocrine/Metabolic: Reports: Diabetes, type II, Osteoporosis Oncologic: Reports: Lung - Caffeine Use Caffeine Use: Reports: None Other Caffeine Use: Neil Yello 1 per day - Living Situation & Occupation Living situation: Reports: , with Family Occupation: Unemployed ED ROS GENERAL - Review of Systems Review Of Systems: See Below Constitutional: Reports: Malaise, Weakness, Fatigue, Decreased Appetite HEENT: Reports: No Symptoms Respiratory: Reports: No Symptoms Cardiovascular: Reports: Blood Pressure Problem, Lightheadedness Endocrine: Reports: Fatigue GI/Abdominal: Reports: Decreased Appetite : Reports: No Symptoms Musculoskeletal: Reports: No Symptoms Skin: Reports: No Symptoms Neurological: Reports: Dizziness, Headache, Weakness Psychiatric: Reports: No Symptoms Hematologic/Lymphatic: Reports: No Symptoms Immunologic: Reports: No Symptoms ED EXAM, GENERAL - Physical Exam Exam: See Below Exam Limited By: No Limitations General Appearance: Alert, WD/WN, No Apparent Distress, Anxious, Obese Eye Exam: Bilateral Eye: EOMI, Normal Inspection, PERRL Ears: Normal External Exam Nose: Normal Inspection Throat/Mouth: Normal Inspection, Normal Lips, Normal Oropharynx, Normal Voice Head: Normocephalic Neck: Normal Inspection, Supple, Non-Tender Respiratory/Chest: No Respiratory Distress, Lungs Clear, Normal Breath Sounds, No Accessory Muscle Use, Other (veniport R upper chest) Cardiovascular: No Murmur, Bradycardia GI/Abdominal: Normal Bowel Sounds, Soft, Non-Tender, No Organomegaly, No Distention, No Mass (Female) Exam: Deferred Rectal (Female) Exam: Deferred Back Exam: Normal Inspection Extremities: Normal Inspection, Other (recovery from L wrist fx, R knee injury, R elbow injury) Neurological: Alert, Oriented, CN II-XII Intact, Normal Cognition, No Motor/ Sensory Deficits Psychiatric: Normal Affect, Anxious Skin Exam: Warm, Dry, Intact, Pallor Lymphatic: No Adenopathy Course - Vital Signs Text/Narrative:: With the appearance of hypotension on admission, the patient was moved to a monitored bed, and an IV was inserted into the RUE, and 1L NS and 1L D5LR was administered over the next 2 hours pending results of labwork and ekg. CBC, CMP , and ekg were baseline with sinus bradycardia evident. She was advised to hold Metoprolol 25 mg if VR were less than 60 bpm. Last Recorded V/S: Last Vital Signs Temp 36.9 C 12/04/17 18:10 Pulse 71 12/04/17 18:10 Resp 14 12/04/17 20:04 BP 102/67 12/04/17 20:04 Pulse Ox 99 12/04/17 20:04 - Orders/Labs/Meds Orders: Active Orders 24 hr Category Date Time Status EKG Documentation Completion [RC] ASDIRECTED Care 12/04/17 18:32 Active Dextrose 5%-Lactated Ringers 1,000 ml Med 12/04/17 20:15 Active IV ASDIRECTED Heparin Sodium [Heparin Lock Flush 100 Units/ML] Med 12/04/17 21:05 Active 500 units FLUSH ASDIRECTED PRN Sodium Chloride 0.9% [Normal Saline] 1,000 ml Med 12/04/17 18:45 Active IV ASDIRECTED Sodium Chloride 0.9% [Saline Flush] Med 12/04/17 18:31 Active 10 ml FLUSH ASDIRECTED PRN Peripheral IV Insertion Adult [OM.PC] Routine Oth 12/04/17 18:31 Ordered EKG 12 Lead [EK] Routine Ther 12/04/17 18:31 Ordered Medication Orders Heparin Sodium (Porcine) (Heparin Lock Flush 100 Units/Ml) 500 units FLUSH ASDIRECTED PRN PRN Reason: Keep Vein Open Sodium Chloride (Normal Saline) 1,000 mls @ 0 mls/hr IV ASDIRECTED JULY Stop: 12/08/17 18:31 Last Admin: 12/04/17 19:00 Dose: 999 mls/hr Dextrose/Lactated Ringer's (Dextrose 5%-Lactated Ringers) 1,000 mls @ 999 mls/ hr IV ASDIRECTED JULY Last Admin: 12/04/17 20:09 Dose: 999 mls/hr Sodium Chloride (Saline Flush) 10 ml FLUSH ASDIRECTED PRN PRN Reason: Keep Vein Open Last Admin: 12/04/17 19:00 Dose: 10 ml Labs: Laboratory Tests 12/04/17 12/04/17 12/04/17 Range/Units 18:55 18:55 18:55 WBC 7.1 (4.5-12.0) X10-3/uL RBC 3.62 (3.23-5.20) x10(6)uL Hgb 10.9 L (11.5-15.5) g/dL Hct 33.4 (30.0-51.3) % MCV 92.4 (80-96) fL MCH 30.1 (27.7-33.6) pg MCHC 32.6 (32.2-35.4) g/dL RDW 17.2 H (11.5-15.5) % Plt Count 254 (125-369) X10(3)uL MPV 8.1 (7.4-10.4) fL Neut % (Auto) 58.0 (46-82) % Lymph % (Auto) 33.8 (13-37) % [place] % (Auto) 6.3 (4-12) % Eos % (Auto) 1 (1.0-5.0) % Baso % (Auto) 1 (0-2) % Neut # (Auto) 4.1 (1.6-8.3) # Lymph # (Auto) 2.4 (0.6-5.0) # [place] # (Auto) 0.4 (0.0-1.3) # Eos # (Auto) 0.1 (0.0-0.8) # Baso # (Auto) 0.1 (0.0-0.2) # Sodium 137 (135-145) mmol/L Potassium 4.0 (3.5-5.3) mmol/L Chloride 103 (100-110) mmol/L Carbon Dioxide 22 (21-32) mmol/L BUN 15 (7-18) mg/dL Creatinine 1.1 H (0.55-1.02) mg/dL Est Cr Clr Drug Dosing TNP Estimated GFR (MDRD) 53 L (>60) BUN/Creatinine Ratio 13.6 (9-20) Glucose 130 H (80-116) mg/dL Calcium 7.7 L (8.6-10.2) mg/dL Total Bilirubin 0.6 (0.1-1.3) mg/dL AST 15 (5-25) IU/L ALT 6 L (12-36) U/L Alkaline Phosphatase 94 (56-112) IU/L Troponin I < 0.017 L (<0.017-0.056) ng/mL Total Protein 6.8 (6.0-8.0) g/dL Albumin 3.0 L (3.5-5.2) g/dL Globulin 3.8 g/dL Albumin/Globulin Ratio 0.8 Meds: Medications Generic Name Dose Route Start Last Admin Trade Name Freq PRN Reason Stop Dose Admin Heparin Sodium (Porcine) 500 units 12/04/17 21:05 Heparin Lock Flush 100 Units/Ml FLUSH ASDIRECTED PRN Keep Vein Open Sodium Chloride 1,000 mls @ 0 mls/hr 12/04/17 18:45 12/04/17 19:00 Normal Saline IV 12/08/17 18:31 999 mls/hr ASDIRECTED JULY Administration KVO Dextrose/Lactated Ringer's 1,000 mls @ 999 mls/hr 12/04/17 20:15 12/04/17 20: 09 Dextrose 5%-Lactated Ringers IV 999 mls/hr ASDIRECTED JULY Administration Sodium Chloride 10 ml 12/04/17 18:31 12/04/17 19:00 Saline Flush FLUSH 10 ml ASDIRECTED PRN Administration Keep Vein Open Departure - Departure Time of Disposition: 21:10 Disposition: Home, Self-Care 01 Condition: Fair Clinical Impression: Hypotension Qualifiers: Hypotension type: unspecified hypotension type Qualified Code(s): I95.9 - Hypotension, unspecified Referrals: PCP,Unknown [Primary Care Provider] - Forms: ED Department Discharge - Problem List & Annotations (1) Hypotension SNOMED Code(s): 76262823 Code(s): I95.9 - HYPOTENSION, UNSPECIFIED Status: Acute Current Visit: Yes Annotation/Comment:: In the presence of bradycardia on Metoprolol and a recent dosage adjustment upwards of lisinopril, I suggested reducing Lisinopril 5 mg qd, and hold Metoprolol if VR<60 bpm. She did get up to ambulate without assistance. Qualifiers: Hypotension type: unspecified hypotension type Qualified Code(s): I95.9 - Hypotension, unspecified - Problem List Review Problem List Initiated/Reviewed/Updated: Yes - My Orders Last 24 Hours: My Active Orders 12/04/17 18:31 Sodium Chloride 0.9% [Saline Flush] 10 ml FLUSH ASDIRECTED PRN Peripheral IV Insertion Adult [OM.PC] Routine EKG 12 Lead [EK] Routine 12/04/17 18:32 EKG Documentation Completion [RC] ASDIRECTED 12/04/17 18:45 Sodium Chloride 0.9% [Normal Saline] 1,000 ml IV ASDIRECTED 12/04/17 20:15 Dextrose 5%-Lactated Ringers 1,000 ml IV ASDIRECTED 12/04/17 21:05 Heparin Sodium [Heparin Lock Flush 100 Units/ML] 500 units FLUSH ASDIRECTED PRN - Assessment/Plan Last 24 Hours: My Active Orders 12/04/17 18:31 Sodium Chloride 0.9% [Saline Flush] 10 ml FLUSH ASDIRECTED PRN Peripheral IV Insertion Adult [OM.PC] Routine EKG 12 Lead [EK] Routine 12/04/17 18:32 EKG Documentation Completion [RC] ASDIRECTED 12/04/17 18:45 Sodium Chloride 0.9% [Normal Saline] 1,000 ml IV ASDIRECTED 12/04/17 20:15 Dextrose 5%-Lactated Ringers 1,000 ml IV ASDIRECTED 12/04/17 21:05 Heparin Sodium [Heparin Lock Flush 100 Units/ML] 500 units FLUSH ASDIRECTED PRN Plan: Follow up with PCP.
[2017-12-04] MEDS ORDERED: Sodium Chloride 0.9% 1,000 ML IV SCH (18:45)
[2017-12-04] MEDS: Sodium Chloride 0.9% 10 ML Syringe FLUSH PRN ×2 (19:00→21:12)
[2017-12-04] MEDS ORDERED: Dextrose 5%-Lactated Ringers 1,000 ML IV SCH (20:15)
[2017-12-04 21:47] VITALS: BP 112/70
== END 2017-12-04 21:30 | disposition home or self-care (01) ==
LOC: FB.ED 18:10
DX: I95.9 Hypotension, unspecified (principal); I10 Essential (primary) hypertension; E78.00 Pure hypercholesterolemia, unspecified; E11.9 Type 2 diabetes mellitus without complications; F41.9 Anxiety disorder, unspecified; F32.9 Major depressive disorder, single episode, unspecified; Z88.0 Allergy status to penicillin; Z88.2 Allergy status to sulfonamides; Z88.6 Allergy status to analgesic agent; Z88.8 Allergy status to other drugs, medicaments and biological substances; Z79.899 Other long term (current) drug therapy
CPT/HCPCS: 80053; 84484; 85025; 93005; 96360; 96361; 99285; J1642; J7030; J7042; J7050

== ENCOUNTER 2018-06-09 21:55 | Emergency (ER) | payer BC, MEDICAID ==
[2013-01-30 19:34] VITALS: BP 125/94
[2018-06-09 23:08] VITALS: BP 103/87
--- NOTE | 2018-06-09 23:47 | EDM.PDOC ---
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 In spite of this or speech she went to work, and was told at work "you're crazy" "...because I said some many crazy things." At 1630 her boyfriend, who gotten home from work noted her speech was slurred and wanted to bring her to the hospital for further evaluation. He then called patient's mother and she encouraged him to bring Tracy to the hospital. She refused, consequently the delay for any intervention continued 5.5 hr until she was brought to the hospital by her mother. At 3 PM patient noted she had a terrible headache. She's had migraines in the past. Today's headache was not the usual migraine because there is no photophobia, weakness, sensory changes or vomiting. She's had 'chest pain for years' and in December 2017 she was seen the ED for chest pain and sent home. Today she had chest pain and notes this is something she has on and off every day for the past 2-3 weeks and then requalified her statement 15 minutes later and stated she has had chest pain for years. At 1300 she noted chest pain was 6/10 pectoral region nonradiating not associated with any symptoms. She has an "aspirin allergy" that causes gastritis. She denies backache. Denies compromised vision or change in strength of her lower extremities. Illnesses extensive light-colored 41. Because problems are listed at recurrent' s problems she has significant history of: Takosubo cardiomyopathy, gastric bypass with a gastric bypass redo, chronic low back pain, hypothyroidism, obesity, valentino catheter chest because the physicians could not get IV sites which had recurrent intermittent dehydration from her gastric bypass, increased QT interval, kidney disease, history of sepsis, history of noncompliance with medication and medical therapy, diabetes, congestive heart failure, fibromyalgia , GERD, insomnia, rotator cuff pain shoulder pain. - Related Data Allergies Allergy/AdvReac Type Severity Reaction Status Date / Time Penicillins Allergy Unknown Hives Verified 06/09/18 22:46 Sulfa (Sulfonamide Allergy Rash Verified 06/09/18 22:46 Antibiotics) zolpidem [From Ambien] Allergy Hallucinati Verified 06/09/18 22:46 ons aspirin AdvReac Stomach Verified 06/09/18 22:46 Upset propoxyphene napsylate AdvReac Stomach Verified 06/09/18 22:46 [From Darvocet-N] Upset Home Meds: Home Meds Norgestrel-Ethinyl Estradiol [Bqy-Jshqmaow-06 Tablet] 1 tab PO BEDTIME 08/25/15 [History] tiZANidine [Zanaflex] 4 mg PO BEDTIME 06/04/17 [History] Etodolac 400 mg PO BID PRN 01/01/18 [History] Cyanocobalamin (Vitamin B-12) [Vitamin B-12] 1,000 mcg IM Q30D 01/02/18 [History ] Lisinopril/Hydrochlorothiazide [Lisinopril-Hctz 10-12.5 mg Tab] 20 mg PO DAILY 01/02/18 [History] rOPINIRole [Requip] 0.5 mg PO TID 01/02/18 [History] tiZANidine [Zanaflex] 4 mg PO DAILY PRN 01/02/18 [History] Acetaminophen [Tylenol] 650 mg PO Q4H PRN tablet 01/03/18 [Rx] Amitriptyline [Elavil] 25 mg PO Q48H tablet 01/03/18 [Rx] Levothyroxine 200 mcg PO DAILY@0600 tablet 01/03/18 [Rx] Metoprolol Succinate [Toprol XL] 37.5 mg PO DAILY tab.er 01/03/18 [Rx] Past Medical History - Past Health History Medical/Surgical History: Denies Medical/Surgical History HEENT History: Reports: Impaired Vision Cardiovascular History: Reports: High Cholesterol, Hypertension, SOB on Exertion Other Cardiovascular History: broken heart syndrome Respiratory History: Reports: Bronchitis, Recurrent, Sleep Apnea, SOB Other Respiratory History: Uses CPAP. Gastrointestinal History: Reports: Gastritis Other Gastrointestinal History: Obese. Genitourinary History: Reports: Renal Disease INVESTIGATOR VICE History: Reports: , Other (See Below) Other INVESTIGATOR VICE History: Musculoskeletal History: Reports: Back Pain, Chronic Other Musculoskeletal History: Torn L rotator cuff. Right foot fracture. Wrist surgery. Neurological History: Reports: Vertigo Psychiatric History: Reports: Anxiety, Depression Endocrine/Metabolic History: Reports: Diabetes, Type II, Obesity/BMI 30+ Other Endocrine/Metabolic History: hx throid storm - Infectious Disease History Infectious Disease History: Reports: Influenza - Past Surgical History GI Surgical History: Reports: Other (See Below) Endocrine Surgical History: Reports: Other (See Below) Musculoskeletal Surgical History: Reports: Shoulder Surgery Social & Family History - Family History Family Medical History: Noncontributory Other Cardiac Family History: Mom had open heart surgery, pt unsure of what surgery was for. Musculoskeletal: Reports: Arthritis, Gout, Osteoporosis Endocrine/Metabolic: Reports: Diabetes, type II, Osteoporosis Oncologic: Reports: Lung - Caffeine Use Caffeine Use: Reports: None Other Caffeine Use: Neil Yello 1 per day - Living Situation & Occupation Living situation: Reports: , with Family Occupation: Unemployed ED ROS GENERAL - Review of Systems Review Of Systems: ROS reveals no pertinent complaints other than HPI. ED EXAM, GENERAL - Physical Exam Exam: See Below Free Text/Narrative:: Asians overweight anxious and does not appear to have slurred speech as her mother described the patient described mild distress. Exam Limited By: No Limitations General Appearance: Alert, WD/WN, Anxious, Mild Distress Eye Exam: Bilateral Eye: Normal Inspection Ears: Normal External Exam, Normal TMs, Other (Mild decreased hearing) Ear Exam: Bilateral Ear: Auricle Normal, Canal Normal, TM normal Nose: Normal Inspection Throat/Mouth: Normal Inspection, Normal Lips, Normal Teeth, Normal Gums, Normal Oropharynx, Normal Voice, No Airway Compromise Head: Atraumatic, Normocephalic Neck: Normal Inspection, Supple, Non-Tender, Other (No bruits no cervical adenopathy no neck stiffness) Respiratory/Chest: No Respiratory Distress, Lungs Clear, Normal Breath Sounds, No Accessory Muscle Use, Chest Non-Tender Cardiovascular: Normal Peripheral Pulses, Regular Rate, Rhythm, No Edema, No Gallop, No Murmur, No Rub Peripheral Pulses: 1+: Carotid (L), Carotid (R), Radial (R), Femoral (L) GI/Abdominal: Normal Bowel Sounds, Soft, Non-Tender, No Organomegaly, No Distention, No Abnormal Bruit, No Mass (Female) Exam: Deferred Rectal (Female) Exam: Deferred Back Exam: Normal Inspection Extremities: Normal Inspection, Normal Range of Motion, Non-Tender, No Pedal Edema, Normal Capillary Refill Neurological: Alert, Oriented, CN II-XII Intact, Other Course - Vital Signs Last Recorded V/S: Last Vital Signs Temp 36.8 C 06/09/18 22:00 Pulse 103 H 06/09/18 22:00 Resp 18 06/09/18 22:00 BP 103/87 06/09/18 22:00 Pulse Ox 100 06/09/18 22:00 - Orders/Labs/Meds Orders: Active Orders 24 hr Category Date Time Status EKG Documentation Completion [RC] ASDIRECTED Care 06/09/18 22:33 Active CXR [Chest 1V Frontal] [CR] Stat Exams 06/09/18 22:34 Taken Head wo Cont [CT] Stat Exams 06/09/18 22:36 Taken EKG 12 Lead [EK] Routine Ther 06/09/18 22:33 Ordered Labs: Laboratory Tests 06/09/18 06/09/18 06/09/18 Range/Units 22:58 22:58 22:58 WBC 12.4 H (4.5-12.0) X10-3/uL RBC 4.03 (3.23-5.20) x10(6)uL Hgb 11.8 (11.5-15.5) g/dL Hct 34.5 (30.0-51.3) % MCV 85.5 (80-96) fL MCH 29.3 (27.7-33.6) pg MCHC 34.2 (32.2-35.4) g/dL RDW 15.6 H (11.5-15.5) % Plt Count 340 (125-369) X10(3)uL MPV 8.1 (7.4-10.4) fL Neut % (Auto) 62.7 (46-82) % Lymph % (Auto) 28.8 (13-37) % [place] % (Auto) 6.2 (4-12) % Eos % (Auto) 2 (1.0-5.0) % Baso % (Auto) 1 (0-2) % Neut # (Auto) 7.7 (1.6-8.3) # Lymph # (Auto) 3.6 (0.6-5.0) # [place] # (Auto) 0.8 (0.0-1.3) # Eos # (Auto) 0.2 (0.0-0.8) # Baso # (Auto) 0.1 (0.0-0.2) # D-Dimer, Quantitative 3.79 H (0.0-0.59) mg/LFEU Sodium 137 (135-145) mmol/L Potassium 4.6 D (3.5-5.3) mmol/L Chloride 105 (100-110) mmol/L Carbon Dioxide 20 L (21-32) mmol/L BUN 38 H D (7-18) mg/dL Creatinine 2.3 H* (0.55-1.02) mg/dL Est Cr Clr Drug Dosing TNP Estimated GFR (MDRD) 22 L (>60) BUN/Creatinine Ratio 16.5 (9-20) Glucose 100 (80-116) mg/dL Calcium 8.9 (8.6-10.2) mg/dL Total Bilirubin 0.4 (0.1-1.3) mg/dL AST 17 D (5-25) IU/L ALT 7 L D (12-36) U/L Alkaline Phosphatase 148 H (56-112) IU/L Troponin I (<0.017-0.056) ng/mL Total Protein 7.0 (6.0-8.0) g/dL Albumin 3.1 L (3.5-5.2) g/dL Globulin 3.9 g/dL Albumin/Globulin Ratio 0.8 06/09/18 06/10/18 Range/Units 22:58 00:26 WBC (4.5-12.0) X10-3/uL RBC (3.23-5.20) x10(6)uL Hgb (11.5-15.5) g/dL Hct (30.0-51.3) % MCV (80-96) fL MCH (27.7-33.6) pg MCHC (32.2-35.4) g/dL RDW (11.5-15.5) % Plt Count (125-369) X10(3)uL MPV (7.4-10.4) fL Neut % (Auto) (46-82) % Lymph % (Auto) (13-37) % [place] % (Auto) (4-12) % Eos % (Auto) (1.0-5.0) % Baso % (Auto) (0-2) % Neut # (Auto) (1.6-8.3) # Lymph # (Auto) (0.6-5.0) # [place] # (Auto) (0.0-1.3) # Eos # (Auto) (0.0-0.8) # Baso # (Auto) (0.0-0.2) # D-Dimer, Quantitative (0.0-0.59) mg/LFEU Sodium (135-145) mmol/L Potassium (3.5-5.3) mmol/L Chloride (100-110) mmol/L Carbon Dioxide (21-32) mmol/L BUN (7-18) mg/dL Creatinine (0.55-1.02) mg/dL Est Cr Clr Drug Dosing Estimated GFR (MDRD) (>60) BUN/Creatinine Ratio (9-20) Glucose (80-116) mg/dL Calcium (8.6-10.2) mg/dL Total Bilirubin (0.1-1.3) mg/dL AST (5-25) IU/L ALT (12-36) U/L Alkaline Phosphatase (56-112) IU/L Troponin I < 0.017 L < 0.017 L (<0.017-0.056) ng/mL Total Protein (6.0-8.0) g/dL Albumin (3.5-5.2) g/dL Globulin g/dL Albumin/Globulin Ratio Departure - Departure Time of Disposition: 23:30 (subjective feeling of decreased strength in left upper extremities. Strength was not asymmetrical on clinical examination, the intermittent mentation changes and confusion and slurred speech is very suggestive of TIA and/or CVA or cerebral ischemia not reflected in the normal CAT scan reading this evening. She is a further MRI and further vascular evaluation for circulation to determine if is any other abnormalities. Her status is discussed with Dr. Kaufman the stroke specialist at [facility] at [phone]. And also patient be transferred to service of Dr. Kyle. In addition that she has acute kidney injury with elevated creatinine. 1. D-dimer is elevated for this is indeterminate. She hasn't TAKATSUBO cardiomyopathy which may also cause arrhythmias and/or poor ejection fraction may have something to do with the elevated d-dimer. There was no evidence for PE clinically or DVT clinically. Her headache is abnormal. Etiology at this indeterminate. Also she has chronic "for years"intermittent chest pain is probably part of the TAKASUBO cardiomyopathy. Even though in the past she has problem list documentation of increased QT interval, my reading the QT interval tonight , I calculate it is 242 ms and is not prolonged acute kidney injury, with new elevated creatinine, stroke specialist, Dr Kafuman is concerned she may have a new lacunar infarct, MRI with contrast and [id number] is planned for her when she arrives at [facility].) Disposition: DC/Tfer to Acute Hospital 02 Reason for Transfer *Q: Other (Possible TIA/CVA that needs to be picked up by MRI and her ruled out and associated Takotsubo cardiomyopathy which may be generating emboli that is causing these neurological symptoms) Condition: Fair Clinical Impression: TIA (transient ischemic attack), Takotsubo cardiomyopathy, Hypothyroidism, Diabetes 1.5, managed as type 2, Fibromyalgia Referrals: Remy Raymundo MD [Primary Care Provider] - - My Orders Last 24 Hours: My Active Orders 06/09/18 22:33 EKG Documentation Completion [RC] ASDIRECTED EKG 12 Lead [EK] Routine 06/09/18 22:34 CXR [Chest 1V Frontal] [CR] Stat 06/09/18 22:36 Head wo Cont [CT] Stat - Assessment/Plan Last 24 Hours: My Active Orders 06/09/18 22:33 EKG Documentation Completion [RC] ASDIRECTED EKG 12 Lead [EK] Routine 06/09/18 22:34 CXR [Chest 1V Frontal] [CR] Stat 06/09/18 22:36 Head wo Cont [CT] Stat
== END 2018-06-10 01:15 ==
LOC: FB.ED 21:55
DX: G45.9 Transient cerebral ischemic attack, unspecified (principal); I11.0 Hypertensive heart disease with heart failure; I50.9 Heart failure, unspecified; E13.8 Other specified diabetes mellitus with unspecified complications; M79.7 Fibromyalgia; E66.9 Obesity, unspecified; E03.9 Hypothyroidism, unspecified; Z98.84 Bariatric surgery status; Z88.0 Allergy status to penicillin; Z88.2 Allergy status to sulfonamides; Z88.6 Allergy status to analgesic agent; Z88.8 Allergy status to other drugs, medicaments and biological substances; Z79.899 Other long term (current) drug therapy
CPT/HCPCS: 36415; 70450; 71045; 80053; 84484; 85025; 85379; 93005; 99285

== ENCOUNTER 2018-06-18 19:13 | Emergency (ER) | payer MEDICAID ==
[2018-06-18] MEDS ORDERED: Alum Hydroxide/Mag Hydroxide 30 ML, Lidocaine 2% 15 ML PO ONE ×4 (19:36→20:58)
--- NOTE | 2018-06-18 19:42 | EDM.PDOC ---
ED HPI GENERAL MEDICAL PROBLEM - General Time Seen by Provider: 06/18/18 19:15 Source of Information: Reports: Patient History Limitations: Reports: No Limitations - History of Present Illness INITIAL COMMENTS - FREE TEXT/NARRATIVE: c/o epigastric pain ate pizza for lunch, epigastric pain at 5p, ate ham sandwich for supper at 6p which made pain worse, feels pain up under sternum no f/c/d, some N, no V no f/c/d had CVA 1w ago, in [facility] x 5d, d/c 5d ago told she had a blood clot on the R side of her brain and that she has a new hole in her heart, anticoagulation not recommended "because I am so young" EKG now with HR 75, SR, no ST change chest Pain Score (Numeric/FACES): 6 - Related Data Allergies Allergy/AdvReac Type Severity Reaction Status Date / Time Penicillins Allergy Unknown Hives Verified 06/18/18 19:49 Sulfa (Sulfonamide Allergy Rash Verified 06/18/18 19:49 Antibiotics) zolpidem [From Ambien] Allergy Hallucinati Verified 06/18/18 19:49 ons aspirin AdvReac Stomach Verified 06/18/18 19:49 Upset propoxyphene napsylate AdvReac Stomach Verified 06/18/18 19:49 [From Darvocet-N] Upset Home Meds: Home Meds Norgestrel-Ethinyl Estradiol [[id number] Tablet] 1 tab PO BEDTIME 08/25/15 [History] tiZANidine [Zanaflex] 4 mg PO BEDTIME 06/04/17 [History] Etodolac 400 mg PO BID PRN 01/01/18 [History] Cyanocobalamin (Vitamin B-12) [Vitamin B-12] 1,000 mcg IM Q30D 01/02/18 [History ] Lisinopril/Hydrochlorothiazide [Lisinopril-Hctz 10-12.5 mg Tab] 20 mg PO DAILY 01/02/18 [History] rOPINIRole [Requip] 0.5 mg PO TID 01/02/18 [History] tiZANidine [Zanaflex] 4 mg PO DAILY PRN 01/02/18 [History] Acetaminophen [Tylenol] 650 mg PO Q4H PRN tablet 01/03/18 [Rx] Amitriptyline [Elavil] 25 mg PO Q48H tablet 01/03/18 [Rx] Levothyroxine 200 mcg PO DAILY@0600 tablet 01/03/18 [Rx] Metoprolol Succinate [Toprol XL] 50 mg PO DAILY 06/18/18 [History] Omeprazole 20 mg PO DAILY #10 tablet. 06/18/18 [Rx] Past Medical History - Past Health History Medical/Surgical History: Denies Medical/Surgical History HEENT History: Reports: Impaired Vision Cardiovascular History: Reports: High Cholesterol, Hypertension, SOB on Exertion Other Cardiovascular History: broken heart syndrome Respiratory History: Reports: Bronchitis, Recurrent, Sleep Apnea, SOB Other Respiratory History: Uses CPAP. Gastrointestinal History: Reports: Gastritis Other Gastrointestinal History: Obese. Genitourinary History: Reports: Renal Disease SIGN LETTERER History: Reports: , Other (See Below) Other SIGN LETTERER History: Musculoskeletal History: Reports: Back Pain, Chronic Other Musculoskeletal History: Torn L rotator cuff. Right foot fracture. Wrist surgery. Neurological History: Reports: Vertigo Psychiatric History: Reports: Anxiety, Depression Endocrine/Metabolic History: Reports: Diabetes, Type II, Obesity/BMI 30+ Other Endocrine/Metabolic History: hx throid storm - Infectious Disease History Infectious Disease History: Reports: Influenza - Past Surgical History GI Surgical History: Reports: Other (See Below) Endocrine Surgical History: Reports: Other (See Below) Musculoskeletal Surgical History: Reports: Shoulder Surgery Social & Family History - Family History Family Medical History: Noncontributory Other Cardiac Family History: Mom had open heart surgery, pt unsure of what surgery was for. Musculoskeletal: Reports: Arthritis, Gout, Osteoporosis Endocrine/Metabolic: Reports: Diabetes, type II, Osteoporosis Oncologic: Reports: Lung - Caffeine Use Caffeine Use: Reports: None Other Caffeine Use: Neil Yello 1 per day - Living Situation & Occupation Living situation: Reports: , with Family Occupation: Unemployed [employer] [facility] - Review of Systems Review Of Systems: See Below Constitutional: Reports: No Symptoms HEENT: Reports: No Symptoms Respiratory: Reports: No Symptoms Cardiovascular: Reports: No Symptoms. Denies: Chest Pain, Palpitations Endocrine: Reports: No Symptoms GI/Abdominal: Reports: Abdominal Pain, Nausea. Denies: Vomiting : Reports: No Symptoms Musculoskeletal: Reports: No Symptoms Skin: Reports: No Symptoms Neurological: Reports: No Symptoms Psychiatric: Reports: No Symptoms Hematologic/Lymphatic: Reports: No Symptoms Immunologic: Reports: No Symptoms ED EXAM, GI/ABD - Physical Exam Exam: See Below Exam Limited By: No Limitations General Appearance: Alert, WD/WN, No Apparent Distress, Other (alert, nonill, takes deep breath without pain, normal speech) Eyes: Bilateral: Normal Appearance Nose: Normal Inspection, Normal Mucosa, No Blood Throat/Mouth: Normal Inspection, Normal Lips, Normal Teeth, Normal Gums, Normal Oropharynx, Normal Voice, No Airway Compromise Head: Atraumatic Neck: Normal Inspection, Supple, Non-Tender, Full Range of Motion. No: Lymphadenopathy (R), Lymphadenopathy (L) Respiratory/Chest: No Respiratory Distress, Lungs Clear, Normal Breath Sounds, No Accessory Muscle Use, Other (1-2+ tender at L lower parasternal margin, pt jumps and pulls back to palpitation, NT elsewhere on the chest) Cardiovascular: Regular Rate, Rhythm, No Rub, Other (2/6 [place] at LSB, trace edema b/l, symmetric) GI/Abdominal Exam: Other (1-2+ epigastric tender only, localized) Back Exam: Normal Inspection, Full Range of Motion, NT Extremities: Normal Inspection, Normal Range of Motion, Non-Tender Neurological: Alert, Oriented, CN II-XII Intact, Normal Cognition, No Motor/ Sensory Deficits Psychiatric: Normal Affect, Normal Mood Skin Exam: Warm, Dry, Intact, Normal Color, No Rash Lymphatic: No Adenopathy Course - Orders/Labs/Meds Orders: Active Orders 24 hr Category Date Time Status EKG Documentation Completion [RC] ASDIRECTED Care 06/18/18 19:26 Active EKG 12 Lead [EK] Routine Ther 06/18/18 19:24 Ordered Labs: Laboratory Tests 06/18/18 06/18/18 06/18/18 Range/Units 19:40 19:40 19:40 WBC 8.9 (4.5-12.0) X10-3/uL RBC 3.58 (3.23-5.20) x10(6)uL Hgb 10.7 L (11.5-15.5) g/dL Hct 30.9 (30.0-51.3) % MCV 86.4 (80-96) fL MCH 30.0 (27.7-33.6) pg MCHC 34.7 (32.2-35.4) g/dL RDW 16.5 H (11.5-15.5) % Plt Count 317 (125-369) X10(3)uL MPV 8.4 (7.4-10.4) fL Neut % (Auto) 52.8 (46-82) % Lymph % (Auto) 35.7 (13-37) % [place] % (Auto) 7.2 (4-12) % Eos % (Auto) 4 (1.0-5.0) % Baso % (Auto) 1 (0-2) % Neut # (Auto) 4.7 (1.6-8.3) # Lymph # (Auto) 3.2 (0.6-5.0) # [place] # (Auto) 0.6 (0.0-1.3) # Eos # (Auto) 0.3 (0.0-0.8) # Baso # (Auto) 0.1 (0.0-0.2) # ESR 38 H (0-20) mm/hr Sodium 138 (135-145) mmol/L Potassium 4.5 (3.5-5.3) mmol/L Chloride 106 (100-110) mmol/L Carbon Dioxide 24 (21-32) mmol/L BUN 28 H D (7-18) mg/dL Creatinine 1.7 H (0.55-1.02) mg/dL Est Cr Clr Drug Dosing TNP Estimated GFR (MDRD) 32 L (>60) BUN/Creatinine Ratio 16.5 (9-20) Glucose 85 (80-116) mg/dL Calcium 8.6 (8.6-10.2) mg/dL Total Bilirubin 0.3 (0.1-1.3) mg/dL AST 20 D (5-25) IU/L ALT 9 L D (12-36) U/L Alkaline Phosphatase 152 H (56-112) IU/L Troponin I < 0.017 L (<0.017-0.056) ng/mL C-Reactive Protein 0.9 (0.5-0.9) mg/dL Total Protein 6.6 (6.0-8.0) g/dL Albumin 2.9 L (3.5-5.2) g/dL Globulin 3.7 g/dL Albumin/Globulin Ratio 0.8 Amylase (25-115) U/L 06/18/18 Range/Units 19:40 WBC (4.5-12.0) X10-3/uL RBC (3.23-5.20) x10(6)uL Hgb (11.5-15.5) g/dL Hct (30.0-51.3) % MCV (80-96) fL MCH (27.7-33.6) pg MCHC (32.2-35.4) g/dL RDW (11.5-15.5) % Plt Count (125-369) X10(3)uL MPV (7.4-10.4) fL Neut % (Auto) (46-82) % Lymph % (Auto) (13-37) % [place] % (Auto) (4-12) % Eos % (Auto) (1.0-5.0) % Baso % (Auto) (0-2) % Neut # (Auto) (1.6-8.3) # Lymph # (Auto) (0.6-5.0) # [place] # (Auto) (0.0-1.3) # Eos # (Auto) (0.0-0.8) # Baso # (Auto) (0.0-0.2) # ESR (0-20) mm/hr Sodium (135-145) mmol/L Potassium (3.5-5.3) mmol/L Chloride (100-110) mmol/L Carbon Dioxide (21-32) mmol/L BUN (7-18) mg/dL Creatinine (0.55-1.02) mg/dL Est Cr Clr Drug Dosing Estimated GFR (MDRD) (>60) BUN/Creatinine Ratio (9-20) Glucose (80-116) mg/dL Calcium (8.6-10.2) mg/dL Total Bilirubin (0.1-1.3) mg/dL AST (5-25) IU/L ALT (12-36) U/L Alkaline Phosphatase (56-112) IU/L Troponin I (<0.017-0.056) ng/mL C-Reactive Protein (0.5-0.9) mg/dL Total Protein (6.0-8.0) g/dL Albumin (3.5-5.2) g/dL Globulin g/dL Albumin/Globulin Ratio Amylase 54 (25-115) U/L Meds: Medications Discontinued Medications Generic Name Dose Route Start Last Admin Trade Name Bam PRN Reason Stop Dose Admin Acetaminophen 1,000 mg 06/18/18 20:58 06/18/18 21:10 Tylenol Extra Strength PO 06/18/18 20:59 1,000 mg ONETIME ONE Administration Al Hydroxide/Mg Hydroxide 30 0 ml 06/18/18 19:36 06/18/18 19:45 ml/ Lidocaine HCl 15 ml PO 06/18/18 19:37 30 ml ONETIME ONE Administration Al Hydroxide/Mg Hydroxide 30 0 ml 06/18/18 20:58 06/18/18 21:11 ml/ Lidocaine HCl 15 ml PO 06/18/18 20:59 30 ml ONETIME ONE Administration Omeprazole 20 mg 06/18/18 21:12 06/18/18 21:57 Omeprazole PO 06/18/18 21:13 Not Given ONETIME ONE Ondansetron HCl 4 mg 06/18/18 20:59 06/18/18 21:11 Zofran Odt PO 06/18/18 21:00 4 mg ONETIME ONE Administration Pantoprazole Sodium 40 mg 06/18/18 21:46 06/18/18 21:56 Protonix PO 06/18/18 21:47 40 mg ONETIME ONE Administration - Re-Assessments/Exams Free Text/Narrative Re-Assessment/Exam: 06/18/18 22:00 w/u neg, labs all improved from previous feeling better with minimal epigastric tender after GI cocktail x 2, still with tenderness at L costochondral junction pt reassured that there is no evidence of cardiac or neuro concerns, agreed to tx plan Departure - Departure Time of Disposition: 22:01 Disposition: Home, Self-Care 01 Condition: Good Clinical Impression: GERD (gastroesophageal reflux disease), Costochondritis - Discharge Information *PRESCRIPTION DRUG MONITORING PROGRAM REVIEWED*: Not Applicable *COPY OF PRESCRIPTION DRUG MONITORING REPORT IN PATIENT PERLITA: Not Applicable Prescriptions: Omeprazole 20 mg PO DAILY #10 tablet. Instructions: Gastroesophageal Reflux Disease, Adult, Costochondritis Referrals: Remy Raymundo MD [Primary Care Provider] - Additional Instructions: For inflammation of the ribs, take acetaminophen 325 mg 2 tabs 4 times a day for 2 days, longer if needed. For pain and inflammation, use ice for 10 minutes 4 times a day for 2 days. To decrease acid production, take omeprazole 20 mg 1 tab daily for 10 days. To neutralize acid and coat the stomach and esophagus, take liquid antacid 30 ml 2 hours after meals and bedtime for 2 days, longer if needed. See your physician in 1-2 days if not feeling better. Otherwise, see your physician in 5 days. Call your Physician or Return to Emergency Department if: * Your condition worsens in any way. * You develop fever greater than 100.4. * You have vomitting that does not stop with medications. * You have pain that is not controlled with medications. - My Orders Last 24 Hours: My Active Orders 06/18/18 19:24 EKG 12 Lead [EK] Routine 06/18/18 19:26 EKG Documentation Completion [RC] ASDIRECTED - Assessment/Plan Last 24 Hours: My Active Orders 06/18/18 19:24 EKG 12 Lead [EK] Routine 06/18/18 19:26 EKG Documentation Completion [RC] ASDIRECTED
[2018-06-18] MEDS ORDERED: Acetaminophen 500 MG Tab PO ONE (20:58)
[2018-06-18] MEDS ORDERED: Ondansetron 4 MG Tab.DIS PO ONE (20:59)
[2018-06-18] MEDS ORDERED: Omeprazole 20 MG Cap.CR PO ONE (21:12)
[2018-06-18] MEDS ORDERED: Pantoprazole 40 MG Tab.CR PO ONE (21:46)
[2018-06-18 23:09] VITALS: BP 101/56
[2018-06-19] MEDS ORDERED: Omeprazole 20 MG Cap.CR PO SCH (06:00)
== END 2018-06-18 22:20 | disposition home or self-care (01) ==
LOC: FB.ED 19:13
DX: M94.0 Chondrocostal junction syndrome [Tietze] (principal); E78.00 Pure hypercholesterolemia, unspecified; I10 Essential (primary) hypertension; G47.30 Sleep apnea, unspecified; F41.9 Anxiety disorder, unspecified; F32.9 Major depressive disorder, single episode, unspecified; E11.9 Type 2 diabetes mellitus without complications; K21.9 Gastro-esophageal reflux disease without esophagitis; Z88.0 Allergy status to penicillin; Z88.2 Allergy status to sulfonamides; Z88.8 Allergy status to other drugs, medicaments and biological substances; Z99.89 Dependence on other enabling machines and devices; Z79.899 Other long term (current) drug therapy
CPT/HCPCS: 36415; 80053; 82150; 84484; 85025; 85651; 86140; 93005; 99285; A9270

== ENCOUNTER 2018-06-28 13:57 | Emergency (ER) | payer MEDICAID ==
[2018-06-28] MEDS ORDERED: Sodium Chloride 0.9% 1,000 ML IV SCH (15:15)
[2018-06-28] MEDS: Sodium Chloride 0.9% 10 ML Syringe FLUSH PRN ×2 (15:20→17:57)
--- NOTE | 2018-06-28 15:29 | EDM.PDOC ---
ED HPI GENERAL MEDICAL PROBLEM - General Chief Complaint: Abdominal Pain Stated Complaint: BP AND STOMACH PAINS Time Seen by Provider: 06/28/18 14:15 Source of Information: Reports: Patient History Limitations: Reports: No Limitations - History of Present Illness INITIAL COMMENTS - FREE TEXT/NARRATIVE: Tracy is a 48-year-old 1 para 1 nonsmoking obese woman who lives with her daughter had on 06/09/18 a CVA noted a noted with a hole in her heart after [facility] at [place]. Has had since then was seen in the ED by my colleague 1 week later and noted have gastritis treated with 4 times a day oral antacids plus PPI without relief of symptoms since last week. For the past week he she's had 8 /10 constant unrelenting mid epigastric radiating bilaterally to the shoulder blades unaffected by her antacid or PPI. (rule out stress ulcer/pancreatitis) When she was in [place] 06/09 through 06/14 an intracardiac monitor placed within her heart (probably Walkman ?, inserted into the pulmonary artery?). She was seen 06/27/18, yesterday, in the [place] [facility] for any arrhythmias yesterday and her backache for arrhythmias was negative. With her stroke she was not treated with lytics on 06/09/18 and she she's not been placed on anticoagulants because "she is too young". Since the CVA she's had a severe headache that persists day and night. The CVA resulted in acute left arm weakness and slurred speech " I have difficulty completing sentences. These symptoms have not abated. And her headache has been constant since her CVA. She's been without cough, fever, hemoptysis, hematochezia, melena, diarrhea, constipation, back pain, shortness of breath cough or dyspnea on exertion. As noted before and reviewed again today she has approximately 26 problems or problem list. Problems list (# 26) Takosubuto cardiomyopathy, CHF, hypertension, TIA, CVA, patent foramen ovale, obstructive sleep apnea- has not tolerated CPAP, history of vision abnormalities, chronic low back pain, QT increased, fibromyalgia, depression, anxiety, history of thyroid storm, restless leg syndrome, morbid obesity, GERD, insomnia, and she had a port after her gastric bypass because she could not eat first 2 months Her blood pressure has been low approximately 7- 10 days ago and she was advised to discuss with her doctor a change in her blood pressure medicines. Apparently that has not happened she still has 80s over 60s blood pressure today Epigastric Pain Score (Numeric/FACES): 8 - Related Data Allergies Allergy/AdvReac Type Severity Reaction Status Date / Time Penicillins Allergy Unknown Hives Verified 06/28/18 14:09 Sulfa (Sulfonamide Allergy Rash Verified 06/28/18 14:09 Antibiotics) zolpidem [From Ambien] Allergy Hallucinati Verified 06/28/18 14:09 ons propoxyphene napsylate AdvReac Stomach Verified 06/28/18 14:09 [From Darvocet-N] Upset Home Meds: Home Meds tiZANidine [Zanaflex] 4 mg PO BEDTIME 06/04/17 [History] Etodolac 400 mg PO BID PRN 01/01/18 [History] Cyanocobalamin (Vitamin B-12) [Vitamin B-12] 1,000 mcg IM Q30D 01/02/18 [History ] Lisinopril/Hydrochlorothiazide [Lisinopril-Hctz 10-12.5 mg Tab] 20 mg PO DAILY 01/02/18 [History] rOPINIRole [Requip] 0.5 mg PO TID 01/02/18 [History] tiZANidine [Zanaflex] 4 mg PO DAILY PRN 01/02/18 [History] Amitriptyline [Elavil] 25 mg PO Q48H tablet 01/03/18 [Rx] Levothyroxine 200 mcg PO DAILY@0600 tablet 01/03/18 [Rx] Metoprolol Succinate [Toprol XL] 50 mg PO DAILY 06/18/18 [History] Omeprazole 20 mg PO DAILY #10 tablet. 06/18/18 [Rx] Acetaminophen [Tylenol] 325 mg PO Q4H PRN 06/28/18 [History] Gabapentin [Neurontin] 200 mg PO DAILY 06/28/18 [History] Sucralfate [Carafate] 1 gm PO QIDACANDBED #90 ml 06/28/18 [Rx] Past Medical History - Past Health History Medical/Surgical History: Denies Medical/Surgical History HEENT History: Reports: Impaired Vision Cardiovascular History: Reports: High Cholesterol, Hypertension, SOB on Exertion Other Cardiovascular History: broken heart syndrome Respiratory History: Reports: Bronchitis, Recurrent, Sleep Apnea, SOB Other Respiratory History: Uses CPAP. Gastrointestinal History: Reports: Gastritis Other Gastrointestinal History: Obese. Genitourinary History: Reports: Renal Disease [employer] History: Reports: , Other (See Below) Other [employer]ER History: Musculoskeletal History: Reports: Back Pain, Chronic Other Musculoskeletal History: Torn L rotator cuff. Right foot fracture. Wrist surgery. Neurological History: Reports: CVA, Vertigo Psychiatric History: Reports: Anxiety, Depression Endocrine/Metabolic History: Reports: Diabetes, Type II, Obesity/BMI 30+ Other Endocrine/Metabolic History: hx thyroid storm - Infectious Disease History Infectious Disease History: Reports: Influenza - Past Surgical History Endocrine Surgical History: Reports: Other (See Below) Musculoskeletal Surgical History: Reports: Shoulder Surgery Social & Family History - Family History Family Medical History: Noncontributory Other Cardiac Family History: Mom had open heart surgery, pt unsure of what surgery was for. Musculoskeletal: Reports: Arthritis, Gout, Osteoporosis Endocrine/Metabolic: Reports: Diabetes, type II, Osteoporosis Oncologic: Reports: Lung - Tobacco Use Smoking Status *Q: Never Smoker Second Hand Smoke Exposure: No - Caffeine Use Caffeine Use: Reports: Soda Other Caffeine Use: Neil Yello 1 per day - Recreational Drug Use Recreational Drug Use: No - Living Situation & Occupation Living situation: Reports: , with Family Occupation: Unemployed ED ROS GENERAL - Review of Systems Review Of Systems: ROS reveals no pertinent complaints other than HPI. Respiratory: Reports: Other (Obstructive sleep apnea does not tolerate CPAP or BiPAP) Cardiovascular: Reports: Other (Documented prolonged QT CHF, Takosubuto cardiomyopathy, implanted Walkman fixes probably pulmonary artery) patent foramen ovale ) Endocrine: Reports: Other (History of thyroid storm) GI/Abdominal: Reports: Other (Morbid obesity. GERD) : Reports: Other (Chronic kidney disease stage III with recent CMP GFR 32) Musculoskeletal: Reports: Back Pain, Other (Chronic low back pain, fibromyalgia lower anterior bilateral sternochondral and costochondral 6 through 8 chest wall discomfort) Neurological: Reports: Other (CVA 06/09/18) Psychiatric: Reports: Other ( lives with her daughter, her daughter is her main support system. Depression) ED EXAM, GI/ABD - Physical Exam Exam: See Below Text/Narrative:: Morbidly obese woman lying on her side 8/10 constant throbbing mid epigastric abdominal discomfort which was "slightly relieved by heating pad but was of no help and the abdominal discomfort was not resolved with antacids or PIP started last week. The past week she's had "throbbing" abdominal discomfort referred to her shoulders and shoulder blades bilaterally 8/10 day and night and her nitrates have been restless and marked with difficulty sleeping. Exam Limited By: No Limitations General Appearance: Alert, Moderate Distress, Obese Ears: Normal External Exam, Normal Canal, Normal TMs Nose: Normal Inspection, Normal Mucosa Throat/Mouth: Normal Inspection, Normal Lips, Normal Teeth, Normal Gums, Normal Oropharynx, Normal Voice, No Airway Compromise Head: Atraumatic Neck: Normal Inspection, Supple, Non-Tender, Full Range of Motion, Other (No tracheal tug no tracheal deviation) Respiratory/Chest: No Respiratory Distress, Lungs Clear, Normal Breath Sounds, No Accessory Muscle Use, Other (She has bilateral anterior chest discomfort of her chest wall ribs 678 between the sternal chondral junction and the midclavicular line bilaterally and radiated to the sternumsubchondral cartilage rib joints and subchondral cartilage joints with a the sternum) Cardiovascular: Normal Peripheral Pulses, Regular Rate, Rhythm GI/Abdominal Exam: Normal Bowel Sounds, Other (Mid line cytoid to the distance between umbilicus symphysis old midline Gastric bypass healed incision tender to mild palpation pressure without suggestion of hernia) (Female) Exam: Deferred Rectal (Female) Exam: Deferred Neurological: Alert, Oriented, CN II-XII Intact, Normal Cognition, Normal Gait, Normal Reflexes, No Motor/Sensory Deficits, Other (No anesthesia, dysesthesia, or hyperesthesia lower extremities) Psychiatric: Normal Affect, Normal Mood Skin Exam: Warm, Dry, Intact, Normal Color EKG INTERPRETATION EKG Date: 06/28/18 Time: 15:15 Rhythm: NSR [place]: Normal P-Wave: Present QRS: Normal ST-T: Normal QT: Normal EKG Interpretation Comments: Low-voltage relight however hypothyroidism (she already is on thyroid medication perhaps inadequately treated) Course - Vital Signs Last Recorded V/S: Last Vital Signs Temp 36.7 C 06/28/18 13:58 Pulse 99 06/28/18 15:30 Resp 18 06/28/18 15:30 BP 107/64 06/28/18 15:30 Pulse Ox 99 06/28/18 15:30 - Orders/Labs/Meds Orders: Active Orders 24 hr Category Date Time Status Abdomen Pelvis wo Cont [CT] Urgent Exams 06/28/18 15:51 Taken CXR [Chest 2V] [CR] Stat Exams 06/28/18 15:05 Taken LIPASE, SERUM Urgent Lab 06/28/18 15:25 Received MAGNESIUM [CHEM] Stat Lab 06/28/18 17:04 Ordered Sodium Chloride 0.9% [Normal Saline] 1,000 ml Med 06/28/18 15:15 Active IV ASDIRECTED Sodium Chloride 0.9% [Saline Flush] Med 06/28/18 15:18 Active 10 ml FLUSH ASDIRECTED PRN EKG 12 Lead [EK] Routine Ther 06/28/18 15:05 Ordered Medication Orders Sodium Chloride (Normal Saline) 1,000 mls @ 200 mls/hr IV ASDIRECTED JULY Last Infusion: 06/28/18 17:00 Dose: 999 mls/hr Admin: 06/28/18 15:20 Dose: 200 mls/hr Sodium Chloride (Saline Flush) 10 ml FLUSH ASDIRECTED PRN PRN Reason: IV Use Last Admin: 06/28/18 15:20 Dose: 10 ml Labs: Laboratory Tests 06/28/18 06/28/18 06/28/18 Range/Units 15:25 15:25 15:25 WBC 7.6 (4.5-12.0) X10-3/uL RBC 3.85 (3.23-5.20) x10(6)uL Hgb 11.2 L (11.5-15.5) g/dL Hct 33.7 (30.0-51.3) % MCV 87.5 (80-96) fL MCH 29.2 (27.7-33.6) pg MCHC 33.3 (32.2-35.4) g/dL RDW 17.5 H (11.5-15.5) % Plt Count 333 (125-369) X10(3)uL MPV 7.8 (7.4-10.4) fL Neut % (Auto) 58.1 (46-82) % Lymph % (Auto) 29.0 (13-37) % [place] % (Auto) 8.3 (4-12) % Eos % (Auto) 4 (1.0-5.0) % Baso % (Auto) 1 (0-2) % Neut # (Auto) 4.5 (1.6-8.3) # Lymph # (Auto) 2.2 (0.6-5.0) # [place] # (Auto) 0.6 (0.0-1.3) # Eos # (Auto) 0.3 (0.0-0.8) # Baso # (Auto) 0.0 (0.0-0.2) # PT (8.7-11.1) INR (0.89-1.13) APTT (24.4-33.2) SECONDS D-Dimer, Quantitative 0.76 H (0.0-0.59) mg/LFEU Sodium (135-145) mmol/L Potassium (3.5-5.3) mmol/L Chloride (100-110) mmol/L Carbon Dioxide (21-32) mmol/L BUN (7-18) mg/dL Creatinine (0.55-1.02) mg/dL Est Cr Clr Drug Dosing mL/min Estimated GFR (MDRD) (>60) BUN/Creatinine Ratio (9-20) Glucose (80-116) mg/dL Calcium (8.6-10.2) mg/dL Total Bilirubin (0.1-1.3) mg/dL AST (5-25) IU/L ALT (12-36) U/L Alkaline Phosphatase (56-112) IU/L Troponin I 0.018 (<0.017-0.056) ng/mL Total Protein (6.0-8.0) g/dL Albumin (3.5-5.2) g/dL Globulin g/dL Albumin/Globulin Ratio 06/28/18 06/28/18 Range/Units 15:25 15:25 WBC (4.5-12.0) X10-3/uL RBC (3.23-5.20) x10(6)uL Hgb (11.5-15.5) g/dL Hct (30.0-51.3) % MCV (80-96) fL MCH (27.7-33.6) pg MCHC (32.2-35.4) g/dL RDW (11.5-15.5) % Plt Count (125-369) X10(3)uL MPV (7.4-10.4) fL Neut % (Auto) (46-82) % Lymph % (Auto) (13-37) % [place] % (Auto) (4-12) % Eos % (Auto) (1.0-5.0) % Baso % (Auto) (0-2) % Neut # (Auto) (1.6-8.3) # Lymph # (Auto) (0.6-5.0) # [place] # (Auto) (0.0-1.3) # Eos # (Auto) (0.0-0.8) # Baso # (Auto) (0.0-0.2) # PT 10.4 (8.7-11.1) INR 1.07 (0.89-1.13) APTT 21.4 L (24.4-33.2) SECONDS D-Dimer, Quantitative (0.0-0.59) mg/LFEU Sodium 136 (135-145) mmol/L Potassium 5.5 H D (3.5-5.3) mmol/L Chloride 105 (100-110) mmol/L Carbon Dioxide 24 (21-32) mmol/L BUN 46 H D (7-18) mg/dL Creatinine 2.1 H* (0.55-1.02) mg/dL Est Cr Clr Drug Dosing 31.17 mL/min Estimated GFR (MDRD) 25 L (>60) BUN/Creatinine Ratio 21.9 H (9-20) Glucose 81 (80-116) mg/dL Calcium 9.3 (8.6-10.2) mg/dL Total Bilirubin 0.5 (0.1-1.3) mg/dL AST 27 H D (5-25) IU/L ALT 10 L D (12-36) U/L Alkaline Phosphatase 174 H (56-112) IU/L Troponin I (<0.017-0.056) ng/mL Total Protein 7.1 (6.0-8.0) g/dL Albumin 3.1 L (3.5-5.2) g/dL Globulin 4.0 g/dL Albumin/Globulin Ratio 0.8 Meds: Medications Generic Name Dose Route Start Last Admin Trade Name Freq PRN Reason Stop Dose Admin Sodium Chloride 1,000 mls @ 200 mls/hr 06/28/18 15:15 06/28/18 17:00 Normal Saline IV 999 mls/hr ASDIRECTED JULY Infusion Sodium Chloride 10 ml 06/28/18 15:18 06/28/18 15:20 Saline Flush FLUSH 10 ml ASDIRECTED PRN Administration IV Use Discontinued Medications Generic Name Dose Route Start Last Admin Trade Name Bam PRN Reason Stop Dose Admin Pantoprazole Sodium 80 mg/ 100 mls @ 200 mls/hr 06/28/18 15:55 06/28/18 16:00 Sodium Chloride IV 06/28/18 16:24 200 mls/hr .BOLUS ONE Administration - Re-Assessments/Exams Free Text/Narrative Re-Assessment/Exam: 06/28/18 15:46 Normal saline 200 mL an hour. Her blood pressure still low. In the 80s She was still taking blood pressure pills that she was on week ago and those have not been discontinued. Departure - Departure Time of Disposition: 15:45 (Patient has a multiplicity of problems. More notably more recent or blood pressure systolic in the 80s. Her blood pressure pills, discontinued or changed. The history of present illness is listed all her previous medical problems. Will not iterate those now. New problem that is surface is midepigastric bowel discomfort 8/10 intensity of his constant day and night. This is unrelenting. She is status post gastric bypass which morbid obesity presently even though he should lost 80 pounds and has regained 40 pounds since the surgery still has with it potential for ligamentous stretching , and partial obstructive changes that potentially could be the cause for her abdominal discomfort. Atypic angina is a strong co morbid contender for the etiol of the mid epigastric abd pain. NO evid of PE or non stemi with Normal ekg and neg troponin. Her swallowing study will be moved up from Saturday to Saturday (2 days from now). Patient's status was discussed with Dr. Lang. He would prefer the completion of this swallowing study before he entertains a possibility of evaluated her in her for gastric ulcers. The meantime proceed with small amounts of feeding every hour. And drinks from a karaffe every other hour every hour to make sure she hydrates herself adequately i.e. she needs to take at least 64 ounces of fluid per day. Later in the ER visit her abdominal pain increase. Initially release and was resolved with Carafate for within a half hour pain came back. I truly think she has acid peptic disease. She was given a dose of Dilaudid 1 mg IV. And will be sent home with oral hydrocodone to diminish the pain. He is not to take any pain medicines on Saturday the day of her swallowing study.) Disposition: Home, Self-Care 01 Condition: Fair Clinical Impression: Peptic ulcer Abdominal pain Qualifiers: Abdominal location: epigastric Qualified Code(s): R10.13 - Epigastric pain Gastritis Qualifiers: Gastritis type: other gastritis Chronicity: acute Gastritis bleeding: without bleeding Qualified Code(s): K29.00 - Acute gastritis without bleeding - Discharge Information *PRESCRIPTION DRUG MONITORING PROGRAM REVIEWED*: Not Applicable *COPY OF PRESCRIPTION DRUG MONITORING REPORT IN PATIENT PERLITA: Not Applicable Referrals: Remy Raymundo MD [Primary Care Provider] - Forms: ED Department Discharge - My Orders Last 24 Hours: My Active Orders 06/28/18 15:05 CXR [Chest 2V] [CR] Stat EKG 12 Lead [EK] Routine 06/28/18 15:15 Sodium Chloride 0.9% [Normal Saline] 1,000 ml IV ASDIRECTED 06/28/18 15:18 Sodium Chloride 0.9% [Saline Flush] 10 ml FLUSH ASDIRECTED PRN 06/28/18 15:25 LIPASE, SERUM Urgent 06/28/18 15:51 Abdomen Pelvis wo Cont [CT] Urgent 06/28/18 17:04 MAGNESIUM [CHEM] Stat - Assessment/Plan Last 24 Hours: My Active Orders 06/28/18 15:05 CXR [Chest 2V] [CR] Stat EKG 12 Lead [EK] Routine 06/28/18 15:15 Sodium Chloride 0.9% [Normal Saline] 1,000 ml IV ASDIRECTED 06/28/18 15:18 Sodium Chloride 0.9% [Saline Flush] 10 ml FLUSH ASDIRECTED PRN 06/28/18 15:25 LIPASE, SERUM Urgent 06/28/18 15:51 Abdomen Pelvis wo Cont [CT] Urgent 06/28/18 17:04 MAGNESIUM [CHEM] Stat
[2018-06-28] MEDS ORDERED: Pantoprazole 80 MG in Sodium Chloride 0.9% 100 ML IV ONE (15:55)
[2018-06-28] MEDS ORDERED: Sucralfate Suspension 1 GM/10 ML Cup PO ONE ×3 (17:08→17:58)
[2018-06-28] MEDS ORDERED: Sucralfate Suspension 1 GM/10 ML Cup PO SCH (17:45)
[2018-06-28] MEDS: HYDROmorphone 2 MG/ML SDV IVPUSH ONE ×2 (17:56→18:04)
[2018-06-28] MEDS ORDERED: HYDROmorphone 2 MG/ML SDV IVPUSH ONE (18:03)
[2018-06-28 18:35] VITALS: BP 101/68
== END 2018-06-28 18:29 | disposition home or self-care (01) ==
LOC: FB.ED 13:57
DX: K29.00 Acute gastritis without bleeding (principal); E78.00 Pure hypercholesterolemia, unspecified; I10 Essential (primary) hypertension; E11.9 Type 2 diabetes mellitus without complications; Z88.0 Allergy status to penicillin; Z88.2 Allergy status to sulfonamides; Z88.8 Allergy status to other drugs, medicaments and biological substances; Z79.899 Other long term (current) drug therapy
CPT/HCPCS: 36415; 71046; 74176; 80053; 83690; 83735; 84484; 85025; 85379; 85610; 85730; 93005; 96361; 96365; 96375; 99285; A9270; C9113; J1170; J7030

== ENCOUNTER 2018-07-25 17:03 | Emergency (ER) | payer MEDICAID ==
[2013-01-30 19:34] VITALS: BP 125/94
--- NOTE | 2018-07-25 19:22 | EDM.PDOC ---
ED HPI GENERAL MEDICAL PROBLEM - General Chief Complaint: Respiratory Problem Stated Complaint: BAD COUGH, INFLUENZA Time Seen by Provider: 07/25/18 17:45 Source of Information: Reports: Patient History Limitations: Reports: No Limitations - History of Present Illness INITIAL COMMENTS - FREE TEXT/NARRATIVE: c/o cough pt with cough x 2d nonproductive, has rhinorrhea, no myalgias no flu vax pt went to urgent care, they obtained a flu swab and sent pt here before results were back flu A was positive additional evaluation of heart and lungs were done to r/o complications, there tests were at baseline and quite unremarkable, does have inc'd monos and mild inc'd CRP c/w flu no f/c/d did have CVA 6w ago, in [place], had LUE weakness that is improved but not back to normal, begun on Plavix and Protonix at time of d/c pt is just outside the window for effective use of Tamiflu labs are quite unremarkable, at baseline, did have a freq, nonproductive hacking cough here, does not have a fever need and rationale for flu vax this fall discussed - Related Data Allergies Allergy/AdvReac Type Severity Reaction Status Date / Time Penicillins Allergy Unknown Hives Verified 07/25/18 19:15 Sulfa (Sulfonamide Allergy Rash Verified 07/25/18 19:15 Antibiotics) zolpidem [From Ambien] Allergy Hallucinati Verified 07/25/18 19:15 ons propoxyphene napsylate AdvReac Stomach Verified 07/25/18 19:15 [From Darvocet-N] Upset Home Meds: Home Meds tiZANidine [Zanaflex] 4 mg PO BEDTIME 06/04/17 [History] Etodolac 400 mg PO BID PRN 01/01/18 [History] Cyanocobalamin (Vitamin B-12) [Vitamin B-12] 1,000 mcg IM Q30D 01/02/18 [History ] rOPINIRole [Requip] 0.5 mg PO TID 01/02/18 [History] tiZANidine [Zanaflex] 4 mg PO DAILY PRN 01/02/18 [History] Levothyroxine 200 mcg PO DAILY@0600 tablet 01/03/18 [Rx] Metoprolol Succinate [Toprol XL] 50 mg PO DAILY 06/18/18 [History] Omeprazole 20 mg PO DAILY #10 tablet. 06/18/18 [Rx] Acetaminophen [Tylenol] 325 mg PO Q4H PRN 06/28/18 [History] Gabapentin [Neurontin] 300 mg PO DAILY 06/28/18 [History] Sucralfate [Carafate] 1 gm PO QIDACANDBED #90 ml 06/28/18 [Rx] Benzonatate 200 mg PO TID PRN #21 capsule 07/25/18 [Rx] Past Medical History - Past Health History Medical/Surgical History: Denies Medical/Surgical History HEENT History: Reports: Impaired Vision Cardiovascular History: Reports: High Cholesterol, Hypertension, SOB on Exertion Other Cardiovascular History: broken heart syndrome Respiratory History: Reports: Bronchitis, Recurrent, Sleep Apnea, SOB Other Respiratory History: Uses CPAP. Gastrointestinal History: Reports: Gastritis Other Gastrointestinal History: Obese. 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 Right foot fracture. Wrist surgery. Neurological History: Reports: CVA, Vertigo Psychiatric History: Reports: Anxiety, Depression Endocrine/Metabolic History: Reports: Diabetes, Type II, Obesity/BMI 30+ Other Endocrine/Metabolic History: hx thyroid storm - Infectious Disease History Infectious Disease History: Reports: Influenza - Past Surgical History Endocrine Surgical History: Reports: Other (See Below) Musculoskeletal Surgical History: Reports: Shoulder Surgery Social & Family History - Family History Family Medical History: Noncontributory Other Cardiac Family History: Mom had open heart surgery, pt unsure of what surgery was for. Musculoskeletal: Reports: Arthritis, Gout, Osteoporosis Endocrine/Metabolic: Reports: Diabetes, type II, Osteoporosis Oncologic: Reports: Lung - Tobacco Use Smoking Status *Q: Never Smoker Second Hand Smoke Exposure: No - Caffeine Use Caffeine Use: Reports: Coffee, Soda Other Caffeine Use: Neil Yello 1 per day - Recreational Drug Use Recreational Drug Use: No - Living Situation & Occupation Living situation: Reports: , with Family Occupation: Unemployed ED ROS GENERAL - Review of Systems Review Of Systems: See Below Constitutional: Reports: Chills, Weakness, Decreased Appetite HEENT: Reports: Rhinitis Respiratory: Reports: Cough, Other (has anterior rib soreness with cough). Denies: Sputum Cardiovascular: Reports: No Symptoms Endocrine: Reports: No Symptoms GI/Abdominal: Reports: No Symptoms : Reports: No Symptoms Musculoskeletal: Reports: Muscle Pain Skin: Reports: No Symptoms Neurological: Reports: No Symptoms Psychiatric: Reports: No Symptoms Hematologic/Lymphatic: Reports: No Symptoms Immunologic: Reports: No Symptoms ED EXAM, GENERAL - Physical Exam Exam: See Below Exam Limited By: No Limitations General Appearance: Alert, WD/WN, No Apparent Distress Eye Exam: Bilateral Eye: Normal Inspection Ears: Normal External Exam, Hearing Grossly Normal Nose: Normal Inspection, Normal Mucosa, No Blood, Other (mild clear d/c) Throat/Mouth: Normal Inspection, Normal Lips, Normal Teeth, Normal Gums, Normal Oropharynx, Normal Voice, No Airway Compromise Head: Atraumatic, Normocephalic Neck: Normal Inspection, Supple, Non-Tender, Full Range of Motion. No: Lymphadenopathy (R), Lymphadenopathy (L) Respiratory/Chest: No Respiratory Distress, Lungs Clear, Normal Breath Sounds, No Accessory Muscle Use, Chest Non-Tender, Other (frequent cough, lungs clear in all [place], good AE, no rales) Cardiovascular: Regular Rate, Rhythm, No Edema, No JVD, No Rub, Other (2/6 NAV[place] at LSB) GI/Abdominal: Soft, Non-Tender, No Distention Back Exam: Normal Inspection, Full Range of Motion, NT Extremities: Normal Inspection, Normal Range of Motion, Non-Tender, No Pedal Edema Neurological: Alert, Oriented, CN II-XII Intact, Normal Cognition, Normal Gait, No Motor/Sensory Deficits Psychiatric: Normal Affect, Normal Mood Skin Exam: Warm, Dry, Intact, Normal Color, No Rash Lymphatic: No Adenopathy Course - Vital Signs Last Recorded V/S: Last Vital Signs Temp 36.8 C 07/25/18 17:10 Pulse 68 07/25/18 17:10 Resp 18 07/25/18 17:10 BP 108/68 07/25/18 17:10 Pulse Ox 98 07/25/18 17:10 - Orders/Labs/Meds Orders: Active Orders 24 hr Category Date Time Status EKG Documentation Completion [RC] ASDIRECTED Care 07/25/18 18:55 Active Chest 2V [CR] Stat Exams 07/25/18 18:54 Ordered Acetaminophen [Tylenol] Med 07/25/18 20:33 Once 650 mg PO NOW ONE Benzonatate [Tessalon Perles] Med 07/25/18 20:33 Once 200 mg PO ONETIME ONE EKG 12 Lead [EK] Routine Ther 07/25/18 18:54 Ordered Labs: Laboratory Tests 07/25/18 07/25/18 07/25/18 Range/Units 19:05 19:05 19:05 WBC 6.3 (4.5-12.0) X10-3/uL RBC 3.37 (3.23-5.20) x10(6)uL Hgb 10.3 L (11.5-15.5) g/dL Hct 29.8 L (30.0-51.3) % MCV 88.2 (80-96) fL MCH 30.4 (27.7-33.6) pg MCHC 34.5 (32.2-35.4) g/dL RDW 17.2 H (11.5-15.5) % Plt Count 265 (125-369) X10(3)uL MPV 8.0 (7.4-10.4) fL Neut % (Auto) 65.4 (46-82) % Lymph % (Auto) 18.1 (13-37) % [place] % (Auto) 12.8 H (4-12) % Eos % (Auto) 3 (1.0-5.0) % Baso % (Auto) 1 (0-2) % Neut # (Auto) 4.2 (1.6-8.3) # Lymph # (Auto) 1.1 (0.6-5.0) # [place] # (Auto) 0.8 (0.0-1.3) # Eos # (Auto) 0.2 (0.0-0.8) # Baso # (Auto) 0.0 (0.0-0.2) # Sodium 140 (135-145) mmol/L Potassium 4.8 (3.5-5.3) mmol/L Chloride 105 (100-110) mmol/L Carbon Dioxide 22 (21-32) mmol/L BUN 42 H (7-18) mg/dL Creatinine 2.1 H* (0.55-1.02) mg/dL Est Cr Clr Drug Dosing TNP Estimated GFR (MDRD) 25 L (>60) BUN/Creatinine Ratio 20.0 (9-20) Glucose 67 L (80-116) mg/dL Calcium 9.4 (8.6-10.2) mg/dL Total Bilirubin 0.6 (0.1-1.3) mg/dL AST 24 D (5-25) IU/L ALT 10 L (12-36) U/L Alkaline Phosphatase 190 H (56-112) IU/L Troponin I < 0.017 L (<0.017-0.056) ng/mL C-Reactive Protein 2.1 H (0.5-0.9) mg/dL NT-Pro-B Natriuret Pep 71 (<=125) pg/mL Total Protein 6.8 (6.0-8.0) g/dL Albumin 3.1 L (3.5-5.2) g/dL Globulin 3.7 g/dL Albumin/Globulin Ratio 0.8 - Re-Assessments/Exams Free Text/Narrative Re-Assessment/Exam: 07/25/18 20:38 flu A positive, no complications of flu noted should do well with APAP and benzonatate and rest Departure - Departure Time of Disposition: 20:39 Disposition: Home, Self-Care 01 Condition: Good Clinical Impression: Influenza A - Discharge Information *PRESCRIPTION DRUG MONITORING PROGRAM REVIEWED*: Not Applicable *COPY OF PRESCRIPTION DRUG MONITORING REPORT IN PATIENT PERLITA: Not Applicable Prescriptions: Benzonatate 200 mg PO TID PRN #21 capsule PRN Reason: Cough Instructions: Influenza, Adult Referrals: Remy Raymundo MD [Primary Care Provider] - Forms: ED Department Discharge Additional Instructions: Continue current meds. For pain and inflammation and any fever, take acetaminophe 325 mg 2 tabs 4 times a day for 1 week. For cough, take benzonatate 200 mg 1 capsule 3 times a day for 1 week, longer if needed. See your doctor in 5-7 days. Return to ED if you are feeling worse. Call your Physician or Return to Emergency Department if: * Your condition worsens in any way. * You develop fever greater than 100.4. * You have vomitting that does not stop with medications. * You have pain that is not controlled with medications. - My Orders Last 24 Hours: My Active Orders 07/25/18 18:54 Chest 2V [CR] Stat EKG 12 Lead [EK] Routine 07/25/18 18:55 EKG Documentation Completion [RC] ASDIRECTED 07/25/18 20:33 Acetaminophen [Tylenol] 650 mg PO NOW ONE Benzonatate [Tessalon Perles] 200 mg PO ONETIME ONE - Assessment/Plan Last 24 Hours: My Active Orders 07/25/18 18:54 Chest 2V [CR] Stat EKG 12 Lead [EK] Routine 07/25/18 18:55 EKG Documentation Completion [RC] ASDIRECTED 07/25/18 20:33 Acetaminophen [Tylenol] 650 mg PO NOW ONE Benzonatate [Tessalon Perles] 200 mg PO ONETIME ONE
[2018-07-25] MEDS ORDERED: Benzonatate 100 MG Cap PO ONE (20:33)
[2018-07-25] MEDS ORDERED: Acetaminophen 325 MG Tab PO ONE (20:33)
[2018-07-26 04:22] VITALS: BP 109/77
== END 2018-07-25 21:05 | disposition home or self-care (01) ==
LOC: FB.ED 17:03
DX: J10.1 Influenza due to other identified influenza virus with other respiratory manifestations (principal); E78.00 Pure hypercholesterolemia, unspecified; I10 Essential (primary) hypertension; Z79.899 Other long term (current) drug therapy; Z88.0 Allergy status to penicillin; Z88.2 Allergy status to sulfonamides
CPT/HCPCS: 36415; 80053; 83880; 84484; 85025; 86140; 93005; 99283; A9270

== ENCOUNTER 2018-08-07 10:09 | Emergency (ER) | payer MEDICAID ==
--- NOTE | 2018-08-07 10:59 | EDM.PDOC ---
ED HPI GENERAL MEDICAL PROBLEM - General Chief Complaint: General Stated Complaint: FAINTED Time Seen by Provider: 08/07/18 10:54 - History of Present Illness INITIAL COMMENTS - FREE TEXT/NARRATIVE: pt with Hx of stroke , cardiomyopathy, DM , recurrent dizzy spells, recurrent hypotensive episodes , comes in from rehab after a recurrent syncopal episode , pt report gen weakness this morning other thakkar denies any other acute distress. including acute neuro sx or reps or Cv sx otherwise. R foot Pain Score (Numeric/FACES): 7 - Related Data Allergies Allergy/AdvReac Type Severity Reaction Status Date / Time Penicillins Allergy Unknown Hives Verified 08/07/18 10:15 Sulfa (Sulfonamide Allergy Rash Verified 08/07/18 10:15 Antibiotics) zolpidem [From Ambien] Allergy Hallucinati Verified 08/07/18 10:15 ons propoxyphene napsylate AdvReac Stomach Verified 08/07/18 10:15 [From Gera-[place]apito] Upset Home Meds: Home Meds tiZANidine [Zanaflex] 4 mg PO BEDTIME 06/04/17 [History] Etodolac 400 mg PO BID PRN 01/01/18 [History] Cyanocobalamin (Vitamin B-12) [Vitamin B-12] 1,000 mcg IM Q30D 01/02/18 [History ] rOPINIRole [Requip] 0.5 mg PO TID 01/02/18 [History] tiZANidine [Zanaflex] 4 mg PO DAILY PRN 01/02/18 [History] Levothyroxine 200 mcg PO DAILY@0600 tablet 01/03/18 [Rx] Metoprolol Succinate [Toprol XL] 50 mg PO DAILY 06/18/18 [History] Omeprazole 20 mg PO DAILY #10 tablet. 06/18/18 [Rx] Acetaminophen [Tylenol] 650 mg PO Q4H PRN 06/28/18 [History] Gabapentin [Neurontin] 300 mg PO BEDTIME 06/28/18 [History] Sucralfate [Carafate] 1 gm PO QIDACANDBED #90 ml 06/28/18 [Rx] Benzonatate 200 mg PO TID PRN #21 capsule 07/25/18 [Rx] Past Medical History - Past Health History Medical/Surgical History: Denies Medical/Surgical History HEENT History: Reports: Impaired Vision Cardiovascular History: Reports: Cardiomyopathy, High Cholesterol, Hypertension , SOB on Exertion Other Cardiovascular History: broken heart syndrome Respiratory History: Reports: Bronchitis, Recurrent, COPD, Sleep Apnea, SOB Other Respiratory History: Uses CPAP. Gastrointestinal History: Reports: Gastritis Other Gastrointestinal History: Obese. 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 Right foot fracture. Wrist surgery. Neurological History: Reports: CVA, Vertigo Psychiatric History: Reports: Anxiety, Depression Endocrine/Metabolic History: Reports: Diabetes, Type II, Obesity/BMI 30+ Other Endocrine/Metabolic History: hx thyroid storm - Infectious Disease History Infectious Disease History: Reports: Influenza - Past Surgical History Endocrine Surgical History: Reports: Other (See Below) Musculoskeletal Surgical History: Reports: Shoulder Surgery Social & Family History - Family History Family Medical History: Noncontributory Other Cardiac Family History: Mom had open heart surgery, pt unsure of what surgery was for. Musculoskeletal: Reports: Arthritis, Gout, Osteoporosis Endocrine/Metabolic: Reports: Diabetes, type II, Osteoporosis Oncologic: Reports: Lung - Caffeine Use Caffeine Use: Reports: Coffee, Soda Other Caffeine Use: Neil Yello 1 per day - Living Situation & Occupation Living situation: Reports: , with Family Occupation: Unemployed ED ROS GENERAL - Review of Systems Review Of Systems: See Below Constitutional: Reports: Fatigue HEENT: Reports: No Symptoms Respiratory: Reports: No Symptoms. Denies: Cough Cardiovascular: Reports: Lightheadedness, Syncope. Denies: Chest Pain, Orthopnea GI/Abdominal: Reports: No Symptoms Musculoskeletal: Reports: No Symptoms Skin: Reports: No Symptoms Neurological: Reports: Dizziness. Denies: Confusion ED EXAM, GENERAL - Physical Exam Exam: See Below Exam Limited By: No Limitations General Appearance: Alert, No Apparent Distress Ears: Normal External Exam, Normal Canal Ear Exam: Bilateral Ear: TM normal Nose: Normal Inspection, Nasal Flaring Head: Atraumatic, Normocephalic Neck: Normal Inspection Respiratory/Chest: No Respiratory Distress, Lungs Clear Cardiovascular: Normal Peripheral Pulses, Regular Rate, Rhythm GI/Abdominal: Normal Bowel Sounds, Soft, Non-Tender Extremities: Normal Inspection Neurological: Alert, Oriented, CN II-XII Intact, Normal Reflexes, No Motor/ Sensory Deficits Course - Vital Signs Text/Narrative:: labs / EKG and unremarkable CXR results were explained to pt. pt has mild orthostatic changes , she was hydrated with fluids / NS , and i recommended holding her metoprolol for SBP in the morning lower than 110 . pt has leukocytosis which is new for her, there are no signs of infectious process, recommended that we watch this for now and have pt follow with her PCP on this issue in 2 days for re-check. Last Recorded V/S: Last Vital Signs Temp 36.8 C 08/07/18 10:09 Pulse 91 08/07/18 10:09 Resp 20 08/07/18 10:09 BP 139/122 H 08/07/18 10:09 Pulse Ox 100 08/07/18 10:09 Orthostatic Blood Pressure [ 98/63 Standing] Orthostatic Blood Pressure [ 90/66 Sitting] Orthostatic Blood Pressure [ 117/70 Supine] - Orders/Labs/Meds Orders: Active Orders 24 hr Category Date Time Status Chest 2V [CR] Stat Exams 08/07/18 14:02 Ordered Sodium Chloride 0.9% [Normal Saline] 1,000 ml Med 08/07/18 11:15 Active IV ASDIRECTED Medication Orders Sodium Chloride (Normal Saline) 1,000 mls @ 500 mls/hr IV ASDIRECTED JULY Last Admin: 08/07/18 11:20 Dose: 500 mls/hr Labs: Laboratory Tests 08/07/18 08/07/18 08/07/18 Range/Units 10:30 10:30 10:30 WBC 18.4 H (4.5-12.0) X10-3/uL RBC 3.55 (3.23-5.20) x10(6)uL Hgb 11.2 L (11.5-15.5) g/dL Hct 32.3 (30.0-51.3) % MCV 90.8 (80-96) fL MCH 31.4 (27.7-33.6) pg MCHC 34.5 (32.2-35.4) g/dL RDW 17.2 H (11.5-15.5) % Plt Count 365 (125-369) X10(3)uL Sodium 141 (135-145) mmol/L Potassium 3.2 L D (3.5-5.3) mmol/L Chloride 104 (100-110) mmol/L Carbon Dioxide 24 (21-32) mmol/L BUN 44 H (7-18) mg/dL Creatinine 2.0 H* (0.55-1.02) mg/dL Est Cr Clr Drug Dosing TNP Estimated GFR (MDRD) 26 L (>60) BUN/Creatinine Ratio 22.0 H (9-20) Glucose 160 H D (80-116) mg/dL Calcium 8.3 L (8.6-10.2) mg/dL Total Bilirubin 0.5 (0.1-1.3) mg/dL AST 15 D (5-25) IU/L ALT 9 L (12-36) U/L Alkaline Phosphatase 129 H (56-112) IU/L Troponin I < 0.017 L (<0.017-0.056) ng/mL Total Protein 6.2 (6.0-8.0) g/dL Albumin 3.0 L (3.5-5.2) g/dL Globulin 3.2 g/dL Albumin/Globulin Ratio 0.9 Urine Color (YELLOW) Urine Appearance (CLEAR) Urine pH (5.0-6.5) Ur Specific [place] (1.010-1.025) Urine Protein (NEGATIVE) mg/dL Urine Glucose (UA) (NORMAL) mg/dL Urine Ketones (NEGATIVE) mg/dL Urine Occult Blood (NEGATIVE) Urine Nitrite (NEGATIVE) Urine Bilirubin (NEGATIVE) Urine Urobilinogen (NEGATIVE) mg/dL Ur Leukocyte Esterase (NEGATIVE) Urine RBC (0-5) Urine WBC (0-5) Ur Squamous Epith Cells (NS,R,O) Urine Bacteria (NS) 08/07/18 Range/Units 14:05 WBC (4.5-12.0) X10-3/uL RBC (3.23-5.20) x10(6)uL Hgb (11.5-15.5) g/dL Hct (30.0-51.3) % MCV (80-96) fL MCH (27.7-33.6) pg MCHC (32.2-35.4) g/dL RDW (11.5-15.5) % Plt Count (125-369) X10(3)uL Sodium (135-145) mmol/L Potassium (3.5-5.3) mmol/L Chloride (100-110) mmol/L Carbon Dioxide (21-32) mmol/L BUN (7-18) mg/dL Creatinine (0.55-1.02) mg/dL Est Cr Clr Drug Dosing Estimated GFR (MDRD) (>60) BUN/Creatinine Ratio (9-20) Glucose (80-116) mg/dL Calcium (8.6-10.2) mg/dL Total Bilirubin (0.1-1.3) mg/dL AST (5-25) IU/L ALT (12-36) U/L Alkaline Phosphatase (56-112) IU/L Troponin I (<0.017-0.056) ng/mL Total Protein (6.0-8.0) g/dL Albumin (3.5-5.2) g/dL Globulin g/dL Albumin/Globulin Ratio Urine Color Yellow (YELLOW) Urine Appearance Slightly cloudy (CLEAR) Urine pH 5.0 (5.0-6.5) Ur Specific [place] 1.015 (1.010-1.025) Urine Protein Negative (NEGATIVE) mg/dL Urine Glucose (UA) 250 H (NORMAL) mg/dL Urine Ketones Negative (NEGATIVE) mg/dL Urine Occult Blood Negative (NEGATIVE) Urine Nitrite Negative (NEGATIVE) Urine Bilirubin Moderate H (NEGATIVE) Urine Urobilinogen 1 H (NEGATIVE) mg/dL Ur Leukocyte Esterase Negative (NEGATIVE) Urine RBC 0-5 (0-5) Urine WBC 0-5 (0-5) Ur Squamous Epith Cells Few H (NS,R,O) Urine Bacteria Moderate H (NS) Meds: Medications Generic Name Dose Route Start Last Admin Trade Name Freq PRN Reason Stop Dose Admin Sodium Chloride 1,000 mls @ 500 mls/hr 08/07/18 11:15 08/07/18 11:20 Normal Saline IV 500 mls/hr ASDIRECTED JULY Administration Discontinued Medications Generic Name Dose Route Start Last Admin Trade Name Freq PRN Reason Stop Dose Admin Ondansetron HCl 4 mg 08/07/18 11:21 08/07/18 11:29 Zofran IVPUSH 08/07/18 11:22 4 mg ONETIME ONE Administration Potassium Chloride 40 meq 08/07/18 14:16 08/07/18 14:16 Klor-Con M20 PO 08/07/18 14:17 40 meq ONETIME ONE Administration Departure - Departure Time of Disposition: 15:09 Disposition: Home, Self-Care 01 Clinical Impression: Hypotension Qualifiers: Hypotension type: unspecified hypotension type Qualified Code(s): I95.9 - Hypotension, unspecified - Discharge Information *PRESCRIPTION DRUG MONITORING PROGRAM REVIEWED*: No *COPY OF PRESCRIPTION DRUG MONITORING REPORT IN PATIENT PERLITA: No Referrals: Remy Raymundo MD [Primary Care Provider] - Forms: ED Department Discharge Additional Instructions: hold metoprolol for systolic blood pressure readings less than 110 , maintain good hydration at home and follow with your physician in 2 days for re-check. - My Orders Last 24 Hours: My Active Orders 08/07/18 11:15 Sodium Chloride 0.9% [Normal Saline] 1,000 ml IV ASDIRECTED 08/07/18 14:02 Chest 2V [CR] Stat - Assessment/Plan Last 24 Hours: My Active Orders 08/07/18 11:15 Sodium Chloride 0.9% [Normal Saline] 1,000 ml IV ASDIRECTED 08/07/18 14:02 Chest 2V [CR] Stat
[2018-08-07] MEDS ORDERED: Sodium Chloride 0.9% 1,000 ML IV SCH (11:15)
[2018-08-07] MEDS ORDERED: Ondansetron 4 MG/2 ML SDV IVPUSH ONE (11:21)
[2018-08-07] MEDS ORDERED: Potassium Chloride 20 MEQ Tab.ER PO ONE (14:16)
[2018-08-07 20:14] VITALS: BP 94/66
--- NOTE | 2018-08-08 10:44 | CR ---
INDICATION: Dizziness, short of breath. CHEST: PA and lateral views of the chest were obtained 08/07/18 and compared with 06/28/18 images. A right subclavian Port-A-Cath is noted in place with tip unchanged in position. ICD unit noted overlying the heart. This was present previously. The heart did not appear grossly enlarged. The aorta is slightly tortuous. Bony structures appear to be grossly intact. Evidence of exogenous obesity is noted. An active infiltrate or effusion was not identified. No evidence of CHF is identified. Overlying EKG leads are noted. IMPRESSION: No acute process - findings as noted above. Report was called to Dr. Florez at 1447 hours on 08/07/18. [facility]
== END 2018-08-07 15:23 | disposition home or self-care (01) ==
LOC: FB.ED 10:09
DX: I95.9 Hypotension, unspecified (principal); I10 Essential (primary) hypertension; E78.00 Pure hypercholesterolemia, unspecified; F41.9 Anxiety disorder, unspecified; F32.9 Major depressive disorder, single episode, unspecified; E11.9 Type 2 diabetes mellitus without complications; Z79.899 Other long term (current) drug therapy; Z88.0 Allergy status to penicillin; Z88.2 Allergy status to sulfonamides; Z88.8 Allergy status to other drugs, medicaments and biological substances
CPT/HCPCS: 71046; 80053; 81001; 84484; 85027; 96361; 96374; 99284; A9270; J1642; J2405; J7030

== ENCOUNTER 2018-08-11 06:43 | Emergency (ER) | payer MEDICAID ==
[2018-08-11] MEDS ORDERED: Ketorolac 60 MG/2 ML SDV IM ONE (07:46)
[2018-08-11] MEDS ORDERED: Sodium Polystyrene Sulfonate 15 GM/60 ML Susp 60 ML Bot PO ONE (08:40)
[2018-08-11] MEDS ORDERED: Sodium Chloride 0.9% 500 ML IV ONE (08:40)
[2018-08-11] MEDS ORDERED: Morphine 10 MG/ML SDV IVPUSH ONE (08:45)
[2018-08-11] MEDS ORDERED: Sodium Chloride 0.9% 1,000 ML IV SCH (10:00)
[2018-08-11] MEDS ORDERED: Diatrizoate Meglumine/Diatrizoate Sodium 37% 30 ML Bottle PO SCH (10:00)
[2018-08-11] MEDS ORDERED: Morphine 4 MG/ML Syringe IVPUSH ONE (11:18)
[2018-08-11] MEDS ORDERED: Metoclopramide 10 MG/2 ML SDV IVPUSH ONE (11:18)
[2018-08-11] MEDS: Morphine 10 MG/ML Syringe IVPUSH ONE ×2 (11:57→12:10)
[2018-08-11] MEDS ORDERED: Norepinephrine 4 MG in Dextrose 5% in Water 246 ML IV SCH ×2 (12:15)
[2018-08-11] MEDS ORDERED: Vancomycin 1 GM, Vancomycin 500 MG in Sodium Chloride 0.9% 500 ML IV ONE (12:15)
[2018-08-11] MEDS ORDERED: Ciprofloxacin in D5W 400 MG in Premix Bag 1 BAG IV ONE ×2 (12:16)
--- NOTE | 2018-08-11 12:23 | EDM.PDOC ---
ED HPI GENERAL MEDICAL PROBLEM - General Chief Complaint: Abdominal Pain Stated Complaint: BACK PAIN Time Seen by Provider: 08/11/18 07:00 - History of Present Illness INITIAL COMMENTS - FREE TEXT/NARRATIVE: pt comes from home with c/o abd pain radiating to her back since early this morning around 1 am, report nausea and couple of emesis, denies fever, chills , report normal BMs , denies blood in stool or emesis or any other associated symptoms or concerns. pt has Hx of cardiomyopathy, COPD, DM and CAD. 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: Other Medication(s), See EMS Report - Related Data Allergies Allergy/AdvReac Type Severity Reaction Status Date / Time Penicillins Allergy Unknown Hives Verified 08/11/18 07:25 Sulfa (Sulfonamide Allergy Rash Verified 08/11/18 07:25 Antibiotics) zolpidem [From Ambien] Allergy Hallucinati Verified 08/11/18 07:25 ons propoxyphene napsylate AdvReac Stomach Verified 08/11/18 07:25 [From Jaqueline] Upset Home Meds: Home Meds tiZANidine [Zanaflex] 4 mg PO BEDTIME 06/04/17 [History] Etodolac 400 mg PO BID PRN 01/01/18 [History] Cyanocobalamin (Vitamin B-12) [Vitamin B-12] 1,000 mcg IM Q30D 01/02/18 [History ] rOPINIRole [Requip] 0.5 mg PO TID 01/02/18 [History] tiZANidine [Zanaflex] 4 mg PO DAILY PRN 01/02/18 [History] Levothyroxine 200 mcg PO DAILY@0600 tablet 01/03/18 [Rx] Metoprolol Succinate [Toprol XL] 50 mg PO DAILY 06/18/18 [History] Omeprazole 20 mg PO DAILY #10 tablet. 06/18/18 [Rx] Acetaminophen [Tylenol] 650 mg PO Q4H PRN 06/28/18 [History] Gabapentin [Neurontin] 300 mg PO BEDTIME 06/28/18 [History] Sucralfate [Carafate] 1 gm PO QIDACANDBED #90 ml 06/28/18 [Rx] Benzonatate 200 mg PO TID PRN #21 capsule 03/01/19 [Rx] Past Medical History - Past Health History Medical/Surgical History: Denies Medical/Surgical History HEENT History: Reports: Impaired Vision Cardiovascular History: Reports: Cardiomyopathy, High Cholesterol, Hypertension , SOB on Exertion Other Cardiovascular History: broken heart syndrome Respiratory History: Reports: Bronchitis, Recurrent, COPD, Sleep Apnea, SOB Other Respiratory History: Uses CPAP. Gastrointestinal History: Reports: Gastritis Other Gastrointestinal History: Obese. 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 Right foot fracture. Wrist surgery. Neurological History: Reports: CVA, Vertigo Psychiatric History: Reports: Anxiety, Depression Endocrine/Metabolic History: Reports: Diabetes, Type II, Obesity/BMI 30+ Other Endocrine/Metabolic History: hx thyroid storm - Infectious Disease History Infectious Disease History: Reports: Influenza - Past Surgical History Endocrine Surgical History: Reports: Other (See Below) Musculoskeletal Surgical History: Reports: Shoulder Surgery Social & Family History - Family History Family Medical History: Noncontributory Other Cardiac Family History: Mom had open heart surgery, pt unsure of what surgery was for. Musculoskeletal: Reports: Arthritis, Gout, Osteoporosis Endocrine/Metabolic: Reports: Diabetes, type II, Osteoporosis Oncologic: Reports: Lung - Tobacco Use Smoking Status *Q: Never Smoker - Caffeine Use Caffeine Use: Reports: None Other Caffeine Use: Neil Yello 1 per day - Recreational Drug Use Recreational Drug Use: No - Living Situation & Occupation Living situation: Reports: , with Family Occupation: Unemployed ED ROS GENERAL - Review of Systems Review Of Systems: See Below Constitutional: Reports: Fatigue. Denies: Fever, Chills Respiratory: Reports: No Symptoms Cardiovascular: Reports: No Symptoms GI/Abdominal: Reports: Abdominal Pain, Anorexia, Decreased Appetite, Nausea, Vomiting. Denies: Diarrhea, Distension, Hematemesis, Hematochezia, Melena Musculoskeletal: Reports: Back Pain Skin: Reports: No Symptoms Neurological: Reports: No Symptoms Psychiatric: Reports: No Symptoms ED EXAM, GI/ABD - Physical Exam Exam: See Below Exam Limited By: No Limitations General Appearance: Alert Throat/Mouth: Other (dry oral mucosa noted. ) Head: Atraumatic Neck: Normal Inspection Respiratory/Chest: No Respiratory Distress, Lungs Clear, Normal Breath Sounds Cardiovascular: Normal Peripheral Pulses, No Edema, Other (initially pt had normal rate on arrival later on became tachycardic. ) GI/Abdominal Exam: Tender, Other (abd obese , tender, BS are decreased. ) Extremities: Normal Inspection, No Pedal Edema Neurological: Alert, Oriented, CN II-XII Intact, No Motor/Sensory Deficits Course - Vital Signs Text/Narrative:: labs / xray/ CT results were explained to pt. pt has pneumatic portal and bowels which suggest mesenteric ischemia , her WBC is at 20k and lactic acid is elevated. while awaiting for CT results pt became hypotensive with SBP at mid 80s , and became tachycardic. i did start fluids , blood cultures are taken , vanco and cipro are being given , levophed is being prepared. discussed current pt condition with Dr Stewart / ER physician at [facility] in [place] and he was in acceptance of pt care. Dx. sepsis . likely mesenteric ischemia Last Recorded V/S: Last Vital Signs Temp 36.9 C 08/11/18 06:43 Pulse 78 08/11/18 06:43 Resp 18 08/11/18 06:43 BP 116/95 H 08/11/18 06:43 Pulse Ox 92 L 08/11/18 06:43 - Orders/Labs/Meds Orders: Active Orders 24 hr Category Date Time Status Abdomen 2V AP Flat Upright [CR] Stat Exams 08/11/18 06:57 Taken Abdomen Pelvis wo Cont [CT] Stat Exams 08/11/18 08:44 Taken Chest 1V Frontal [CR] Stat Exams 08/11/18 08:40 Taken CULTURE BLOOD [BC] Urgent Lab 08/11/18 09:14 Received CULTURE BLOOD [BC] Urgent Lab 08/11/18 10:39 Received CULTURE BLOOD [BC] Urgent Lab 08/11/18 12:16 Ordered CULTURE BLOOD [BC] Urgent Lab 08/11/18 12:16 Ordered CULTURE URINE [RM] Stat Lab 08/11/18 07:11 Received Ciprofloxacin in D5W [Cipro in D5W 400 MG/200 ML] 400 Med 08/11/18 12:16 Ordered mg Premix Bag 1 bag IV ONETIME Diatrizoate Monet/Diatrizoate Na [Gastrografin 37%] Med 08/11/18 10:00 Active 30 ml PO . DIRECTED Norepinephrine 4 MG in D5W @ 2 MCG/MIN(250ml) Med 08/11/18 12:15 Ordered Norepinephrine [Levophed] 4 mg Dextrose 5% in Water 246 ml IV TITRATE Sodium Chloride 0.9% [Normal Saline] 1,000 ml Med 08/11/18 10:00 Active IV ASDIRECTED Sodium Chloride 0.9% [Normal Saline] 500 ml Med 08/11/18 08:40 Active IV .BOLUS Vancomycin 1 gm Med 08/11/18 12:15 Active Vancomycin 500 mg Sodium Chloride 0.9% [Normal Saline] 500 ml IV ONETIME Blood Culture x2 Reflex Set [OM.PC] Urgent Oth 08/11/18 08:40 Ordered Blood Culture x2 Reflex Set [OM.PC] Urgent Oth 08/11/18 12:15 Ordered Medication Orders Diatrizoate Meglum/Diatrizoate Sod (Gastrografin 37%) [address] [facility] Last Admin: 08/11/18 11:28 Dose: 30 ml Sodium Chloride (Normal Saline) 500 mls @ 999 drops/hr IV .BOLUS ONE Stop: 08/11/18 16:10 Last Admin: 08/11/18 09:21 Dose: 999 drops/hr Sodium Chloride (Normal Saline) 1,000 mls @ 100 mls/hr IV ASDIRECTED [facility] Last Admin: 08/11/18 09:57 Dose: 100 mls/hr Vancomycin HCl 1 gm/Vancomycin HCl 500 mg/ Sodium Chloride 500 mls @ 250 mls/ hr IV ONETIME ONE Stop: 08/11/18 14:14 Ciprofloxacin/Dextrose 400 mg/ (Premix) 200 mls @ 200 mls/hr IV ONETIME ONE Stop: 08/11/18 13:15 Norepinephrine Bitartrate 4 mg (/ Dextrose/Water) 250 mls @ 7.5 mls/hr IV TITRATE [facility]; Protocol Labs: Laboratory Tests 08/11/18 08/11/18 08/11/18 Range/Units 07:11 08:00 08:00 WBC 19.9 H (4.5-12.0) X10-3/uL RBC 3.78 (3.23-5.20) x10(6)uL Hgb 11.5 (11.5-15.5) g/dL Hct 34.7 (30.0-51.3) % MCV 92.0 (80-96) fL MCH 30.5 (27.7-33.6) pg MCHC 33.2 (32.2-35.4) g/dL RDW 16.8 H (11.5-15.5) % Plt Count 469 H (125-369) X10(3)uL MPV 8.6 (7.4-10.4) fL Add Manual Diff Yes Neutrophils % (Manual) 85 H (46-82) % Band Neutrophils % 3 (0-6) % Lymphocytes % (Manual) 4 L (13-37) % Monocytes % (Manual) 8 (4-12) % Anisocytosis Few Sodium 134 L (135-145) mmol/L Potassium 5.8 H D (3.5-5.3) mmol/L Chloride 102 (100-110) mmol/L Carbon Dioxide 19 L (21-32) mmol/L BUN 54 H D (7-18) mg/dL Creatinine 2.8 H* (0.55-1.02) mg/dL Est Cr Clr Drug Dosing 23.38 mL/min Estimated GFR (MDRD) 18 L (>60) BUN/Creatinine Ratio 19.3 (9-20) Glucose 296 H D (80-116) mg/dL Lactic Acid (0.4-2.2) mmol/L Calcium 9.2 (8.6-10.2) mg/dL Total Bilirubin 1.2 (0.1-1.3) mg/dL AST 29 H D (5-25) IU/L ALT 9 L (12-36) U/L Alkaline Phosphatase 169 H (56-112) IU/L Total Protein 6.7 (6.0-8.0) g/dL Albumin 3.0 L (3.5-5.2) g/dL Globulin 3.7 g/dL Albumin/Globulin Ratio 0.8 Amylase 58 (25-115) U/L Urine Color Yellow (YELLOW) Urine Appearance Cloudy (CLEAR) Urine pH 5.0 (5.0-6.5) Ur Specific [place] 1.020 (1.010-1.025) Urine Protein Negative (NEGATIVE) mg/dL Urine Glucose (UA) >1000 H (NORMAL) mg/dL Urine Ketones Negative (NEGATIVE) mg/dL Urine Occult Blood Negative (NEGATIVE) Urine Nitrite Negative (NEGATIVE) Urine Bilirubin Moderate H (NEGATIVE) Urine Urobilinogen 1 H (NEGATIVE) mg/dL Ur Leukocyte Esterase Small H (NEGATIVE) Urine WBC 10-20 H (0-5) Ur Squamous Epith Cells Moderate H (NS,R,O) Urine Bacteria Many H (NS) 08/11/18 Range/Units 08:00 WBC (4.5-12.0) X10-3/uL RBC (3.23-5.20) x10(6)uL Hgb (11.5-15.5) g/dL Hct (30.0-51.3) % MCV (80-96) fL MCH (27.7-33.6) pg MCHC (32.2-35.4) g/dL RDW (11.5-15.5) % Plt Count (125-369) X10(3)uL MPV (7.4-10.4) fL Add Manual Diff Neutrophils % (Manual) (46-82) % Band Neutrophils % (0-6) % Lymphocytes % (Manual) (13-37) % Monocytes % (Manual) (4-12) % Anisocytosis Sodium (135-145) mmol/L Potassium (3.5-5.3) mmol/L Chloride (100-110) mmol/L Carbon Dioxide (21-32) mmol/L BUN (7-18) mg/dL Creatinine (0.55-1.02) mg/dL Est Cr Clr Drug Dosing mL/min Estimated GFR (MDRD) (>60) BUN/Creatinine Ratio (9-20) Glucose (80-116) mg/dL Lactic Acid 3.2 H (0.4-2.2) mmol/L Calcium (8.6-10.2) mg/dL Total Bilirubin (0.1-1.3) mg/dL AST (5-25) IU/L ALT (12-36) U/L Alkaline Phosphatase (56-112) IU/L Total Protein (6.0-8.0) g/dL Albumin (3.5-5.2) g/dL Globulin g/dL Albumin/Globulin Ratio Amylase (25-115) U/L Urine Color (YELLOW) Urine Appearance (CLEAR) Urine pH (5.0-6.5) Ur Specific [place] (1.010-1.025) Urine Protein (NEGATIVE) mg/dL Urine Glucose (UA) (NORMAL) mg/dL Urine Ketones (NEGATIVE) mg/dL Urine Occult Blood (NEGATIVE) Urine Nitrite (NEGATIVE) Urine Bilirubin (NEGATIVE) Urine Urobilinogen (NEGATIVE) mg/dL Ur Leukocyte Esterase (NEGATIVE) Urine WBC (0-5) Ur Squamous Epith Cells (NS,R,O) Urine Bacteria (NS) Meds: Medications Generic Name Dose Route Start Last Admin Trade Name Bam PRN Reason Stop Dose Admin Diatrizoate Meglum/Diatrizoate Sod 30 ml 08/11/18 10:00 08/11/18 11:28 Gastrografin 37% PO 30 ml . DIRECTED JULY Administration Sodium Chloride 500 mls @ 999 drops/hr 08/11/18 08:40 08/11/18 09:21 Normal Saline IV 08/11/18 16:10 999 drops/hr .BOLUS ONE Administration Sodium Chloride 1,000 mls @ 100 mls/hr 08/11/18 10:00 08/11/18 09:57 Normal Saline IV 100 mls/hr ASDIRECTED JULY Administration Vancomycin HCl 1 gm/ 500 mls @ 250 mls/hr 08/11/18 12:15 Vancomycin HCl 500 mg/ Sodium IV 08/11/18 14:14 Chloride ONETIME ONE Ciprofloxacin/Dextrose 400 mg/ 200 mls @ 200 mls/hr 08/11/18 12:16 Premix IV 08/11/18 13:15 ONETIME ONE Norepinephrine Bitartrate 4 mg 250 mls @ 7.5 mls/hr 08/11/18 12:15 / Dextrose/Water IV TITRATE JULY Protocol 2 MCG/MIN Discontinued Medications Generic Name Dose Route Start Last Admin Trade Name Bam PRN Reason Stop Dose Admin Ketorolac Tromethamine 60 mg 08/11/18 07:46 08/11/18 07:51 Toradol IM 08/11/18 07:47 60 mg ONETIME ONE Administration Metoclopramide HCl 10 mg 08/11/18 11:18 08/11/18 11:56 Reglan IVPUSH 08/11/18 11:19 10 mg ONETIME ONE Administration Morphine Sulfate 4 mg 08/11/18 08:45 08/11/18 09:06 Morphine IVPUSH 08/11/18 08:46 4 mg ONETIME ONE Administration Morphine Sulfate 4 mg 08/11/18 11:18 08/11/18 11:55 Morphine IVPUSH 08/11/18 11:19 Not Given ONETIME ONE Morphine Sulfate 4 mg 08/11/18 11:55 08/11/18 12:10 Morphine IVPUSH 08/11/18 11:56 Not Given ONETIME ONE Sodium Polystyrene Sulfonate 45 gm 08/11/18 08:40 08/11/18 09:08 Kayexalate PO 08/11/18 08:41 45 gm NOW ONE Administration Departure - Departure Time of Disposition: 12:31 Disposition: DC/Tfer to [facility] Clinical Impression: Sepsis Qualifiers: Sepsis type: sepsis due to unspecified organism Qualified Code(s): A41.9 - Sepsis, unspecified organism - Discharge Information Referrals: Remy Raymundo MD [Primary Care Provider] - - My Orders Last 24 Hours: My Active Orders 08/11/18 06:57 Abdomen 2V AP Flat Upright [CR] Stat 08/11/18 07:11 CULTURE URINE [RM] Stat 08/11/18 08:40 Chest 1V Frontal [CR] Stat Sodium Chloride 0.9% [Normal Saline] 500 ml IV .BOLUS Blood Culture x2 Reflex Set [OM.PC] Urgent 08/11/18 08:44 Abdomen Pelvis wo Cont [CT] Stat 08/11/18 09:14 CULTURE BLOOD [BC] Urgent 08/11/18 10:00 Diatrizoate Monet/Diatrizoate Na [Gastrografin 37%] 30 ml PO . DIRECTED Sodium Chloride 0.9% [Normal Saline] 1,000 ml IV ASDIRECTED 08/11/18 10:39 CULTURE BLOOD [BC] Urgent 08/11/18 12:15 Norepinephrine 4 MG in D5W @ 2 MCG/MIN(250ml) Norepinephrine [Levophed] 4 mg Dextrose 5% in Water 246 ml IV TITRATE Vancomycin 1 gm Vancomycin 500 mg Sodium Chloride 0.9% [Normal Saline] 500 ml IV ONETIME Blood Culture x2 Reflex Set [OM.PC] Urgent 08/11/18 12:16 CULTURE BLOOD [BC] Urgent CULTURE BLOOD [BC] Urgent Ciprofloxacin in D5W [Cipro in D5W 400 MG/200 ML] 400 mg Premix Bag 1 bag IV ONETIME - Assessment/Plan Last 24 Hours: My Active Orders 08/11/18 06:57 Abdomen 2V AP Flat Upright [CR] Stat 08/11/18 07:11 CULTURE URINE [RM] Stat 08/11/18 08:40 Chest 1V Frontal [CR] Stat Sodium Chloride 0.9% [Normal Saline] 500 ml IV .BOLUS Blood Culture x2 Reflex Set [OM.PC] Urgent 08/11/18 08:44 Abdomen Pelvis wo Cont [CT] Stat 08/11/18 09:14 CULTURE BLOOD [BC] Urgent 08/11/18 10:00 Diatrizoate Monet/Diatrizoate Na [Gastrografin 37%] 30 ml PO . DIRECTED Sodium Chloride 0.9% [Normal Saline] 1,000 ml IV ASDIRECTED 08/11/18 10:39 CULTURE BLOOD [BC] Urgent 08/11/18 12:15 Norepinephrine 4 MG in D5W @ 2 MCG/MIN(250ml) Norepinephrine [Levophed] 4 mg Dextrose 5% in Water 246 ml IV TITRATE Vancomycin 1 gm Vancomycin 500 mg Sodium Chloride 0.9% [Normal Saline] 500 ml IV ONETIME Blood Culture x2 Reflex Set [OM.PC] Urgent 08/11/18 12:16 CULTURE BLOOD [BC] Urgent CULTURE BLOOD [BC] Urgent Ciprofloxacin in D5W [Cipro in D5W 400 MG/200 ML] 400 mg Premix Bag 1 bag IV ONETIME
--- NOTE | 2018-08-11 13:26 | CT ---
INDICATION: Abdominal pain, periumbilical, started [place] [address] ABDOMEN AND PELVIS WITHOUT IV CONTRAST BUT WITH ORAL CONTRAST: Spiral 3.75 mm axial sections were obtained through the abdomen and pelvis with oral contrast only, with sagittal and coronal reconstructions, 08/11/18, and compared with 06/28/18. Total exam DLP = 2,063.66 mGy-cm. The lower lung [place] and pleural spaces visualized showed no evidence of an active infiltrate or effusion. The heart is normal in size. However, minimal pericardial thickening is noted anteriorly, compared with the previous examination, which could represent inflammatory process but should be correlated clinically. The liver appears somewhat prominent in size with gas in the portal and hepatic venous structures, as well as in mesenteric venous structures. The most common cause of this finding is mesenteric ischemia; however, findings should be correlated clinically. Additionally, there is pneumatosis intestinalis, which may be on the basis of bowel infection with gas-forming organism. This is seen most severely in the right upper abdomen but is seen extending into the mid abdomen area and upper pelvis to the left. Urinary bladder is distended. The possibility of urinary retention would be a consideration. Small bowel loops are somewhat dilated with some air fluid levels and air contrast levels, suggesting either paralytic ileus or possibly a partial or early mechanical obstruction of the distal small bowel. Paralytic ileus is felt to be most likely. No other organomegaly, mass lesions, or free fluid collections were identified in the abdomen or pelvis. No evidence of free intraperitoneal air was identified. There does appear to be gas in mesenteric vasculature in the right flank area. Evidence of exogenous obesity is noted. IMPRESSION: 1. Pneumatosis intestinalis, fairly extensive, could represent bowel infection but should be correlated clinically. 2. Portal mesenteric air is noted, which is most commonly visualized with mesenteric ischemia. Findings should be correlated clinically. 3. Post cholecystectomy. 4. Post gastric bypass. 5. Minimal renal cortical scarring. 6. Exogenous obesity. 7. Distended appearing urinary bladder could represent urinary retention - correlate clinically. 8. Dilated small bowel loops, which likely are on the basis of paralytic ileus or possibly a distal mechanically obstructive process - the latter is less likely. 9. Pericardial thickening is noted anteriorly, new compared with previous study of 06/28/18. Report was called to Dr. Florez at 1203 hours on 08/11/18. [facility]
[2018-08-11] MEDS ORDERED: Sodium Chloride 0.9% 1,000 ML IV ONE (13:27)
--- NOTE | 2018-08-11 15:50 | CR ---
INDICATION: Leukocytosis. CHEST: An AP portable upright view of the chest was obtained 08/11/18 and compared with 08/07/18 and 06/28/18. AICD device again noted overlying the left heart border. Overlying EKG lead snaps noted. Port-A-Cath unchanged in position. An active infiltrate or effusion was not identified. Evidence of exogenous obesity is noted. IMPRESSION: No acute process - findings as noted above - stable chest. MTDD
[2018-08-11 20:59] VITALS: BP 122/88
== END 2018-08-11 13:19 | disposition critical access hospital (66) ==
LOC: FB.ED 06:43
DX: A41.9 Sepsis, unspecified organism (principal); I10 Essential (primary) hypertension; Z86.73 Personal history of transient ischemic attack (TIA), and cerebral infarction without residual deficits; E11.9 Type 2 diabetes mellitus without complications; E66.9 Obesity, unspecified; Z88.0 Allergy status to penicillin; Z88.2 Allergy status to sulfonamides; Z88.8 Allergy status to other drugs, medicaments and biological substances
CPT/HCPCS: 36415; 71045; 74019; 74176; 80053; 81001; 82150; 83605; 85025; 87040; 87077; 87086; 93005; 96361; 96365; 96368; 96375; 99285; A9270; J0744; J1885; J2270; J2765; J3370; J7030; J7040; J7060; Q9963; 87186

== ENCOUNTER 2018-12-16 16:37 | Observation (INO) | payer MEDICAID ==
--- NOTE | 2018-12-16 16:55 | EDM.PDOC ---
ED HPI GENERAL MEDICAL PROBLEM - General Chief Complaint: Syncope Stated Complaint: HYPOTENSIVE Time Seen by Provider: 12/16/18 16:40 Source of Information: Reports: Patient, EMS, EMS Notes Reviewed, Old Records History Limitations: Reports: No Limitations - History of Present Illness INITIAL COMMENTS - FREE TEXT/NARRATIVE: Tracy is brought to [facility] ED by EMS following a syncopal episode at home while arising from bed to go to the . She experienced no warning, and experenced LOC for less than 30 sec. She denies chest pain, SOB, headache, or palpitations. She was just discharged today from [facility] for generalized malaise, hypotension, possible hypoglycemia, cardiac work up reportedly negative. She currently is awake, alert, orientated, and cooperative. She still feels weak overall. Abdominal Pain Score (Numeric/FACES): 8 - Related Data Allergies Allergy/AdvReac Type Severity Reaction Status Date / Time Penicillins Allergy Unknown Hives Verified 12/16/18 18:21 Sulfa (Sulfonamide Allergy Rash Verified 12/16/18 18:21 Antibiotics) zolpidem [From Ambien] Allergy Hallucinati Verified 12/16/18 18:21 ons propoxyphene napsylate AdvReac Stomach Verified 12/16/18 18:21 [From Darvocet-N] Upset Home Meds: Home Meds tiZANidine [Zanaflex] 4 mg PO BEDTIME 06/04/17 [History] rOPINIRole [Requip] 0.25 mg PO BEDTIME 01/02/18 [History] Levothyroxine 200 mcg PO DAILY@0600 tablet 01/03/18 [Rx] Gabapentin [Neurontin] 300 mg PO TID 06/28/18 [History] Acetaminophen [Tylenol Extra Strength] 1,000 mg PO TID PRN 12/16/18 [History] Amitriptyline [Elavil] 50 mg BEDTIME 12/16/18 [History] Clopidogrel Bisulfate [Clopidogrel] 75 mg DAILY 12/16/18 [History] Dronabinol 5 mg BID 12/16/18 [History] Melatonin 9 mg PO BEDTIME 12/16/18 [History] Ondansetron HCl [Zofran] 4 mg PO TID PRN 12/16/18 [History] Pantoprazole [ProTONIX] 40 mg PO DAILY 12/16/18 [History] Phytonadione [Vitamin K] 100 mcg PO DAILY 12/16/18 [History] Sennosides/Docusate Sodium [Senexon-S Tablet] 2 tab DAILY PRN 12/16/18 [History] Warfarin Sodium [Jantoven] 2 mg DAILY 12/16/18 [History] atorvaSTATin Calcium [Lipitor] 40 mg PO BEDTIME 12/16/18 [History] hydrOXYzine HCl [hydrOXYzine] 25 mg BID PRN 12/16/18 [History] traMADol HCl [Tramadol HCl] 50 mg BID PRN 12/16/18 [History] Past Medical History - Past Health History Medical/Surgical History: Denies Medical/Surgical History HEENT History: Reports: Impaired Vision Cardiovascular History: Reports: Cardiomyopathy, High Cholesterol, Hypertension , SOB on Exertion Other Cardiovascular History: broken heart syndrome Respiratory History: Reports: Bronchitis, Recurrent, COPD, Sleep Apnea, SOB Other Respiratory History: Uses CPAP. Gastrointestinal History: Reports: Gastritis Other Gastrointestinal History: Obese. 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 Right foot fracture. Wrist surgery. Neurological History: Reports: CVA, Vertigo Psychiatric History: Reports: Anxiety, Depression Endocrine/Metabolic History: Reports: Diabetes, Type II, Obesity/BMI 30+ Other Endocrine/Metabolic History: hx thyroid storm - Infectious Disease History Infectious Disease History: Reports: Influenza - Past Surgical History Endocrine Surgical History: Reports: Other (See Below) Musculoskeletal Surgical History: Reports: Shoulder Surgery Social & Family History - Family History Family Medical History: Noncontributory Other Cardiac Family History: Mom had open heart surgery, pt unsure of what surgery was for. Musculoskeletal: Reports: Arthritis, Gout, Osteoporosis Endocrine/Metabolic: Reports: Diabetes, type II, Osteoporosis Oncologic: Reports: Lung - Caffeine Use Caffeine Use: Reports: None Other Caffeine Use: Neil Yello 1 per day - Living Situation & Occupation Living situation: Reports: , with Family Occupation: Unemployed ED ROS GENERAL - Review of Systems Review Of Systems: ROS reveals no pertinent complaints other than HPI. - Physical Exam Exam: See Below Exam Limited By: No Limitations General Appearance: Alert, WD/WN, Lethargic Eye Exam: Bilateral Eye: EOMI, Normal Inspection, PERRL Ears: Normal External Exam Nose: Normal Inspection Throat/Mouth: Normal Inspection, Normal Lips, Normal Oropharynx, Normal Voice, No Airway Compromise Head Exam: Normocephalic Neck: Normal Inspection, Supple, Non-Tender Respiratory/Chest: Lungs Clear, Normal Breath Sounds, Chest Non-Tender Cardiovascular: Regular Rate, Rhythm, No JVD, No Murmur GI/Abdominal: Normal Bowel Sounds, Soft, Non-Tender, No Organomegaly, No Distention, No Mass (Female) Exam: Deferred Rectal (Female) Exam: Deferred Neuro Exam (Abbreviated): Oriented, CN II-XII Intact, No Motor/Sensory Deficits , Inattentive Back Exam: Normal Inspection Extremities: Normal Inspection, Normal Range of Motion Psychiatric: Flat Affect Skin Exam: Warm, Dry, Intact, Normal Color, No Rash Course - Vital Signs Text/Narrative:: Following assessment, an IV was started in the RUE and Tracy was given 2L NS fluid bolus to support low BP, and she remained orthostatic Attempts to ambulate were unsuccessful and she will be admitted to Observation. - Orders/Labs/Meds Orders: Active Orders 24 hr Category Date Time Status Patient Status Manage Transfer [TRANSFER] Routine ADT 12/16/18 19:32 Active EKG Documentation Completion [RC] ASDIRECTED Care 12/16/18 16:51 Active INR,PT,PROTHROMBIN TIME [COAG] Stat Lab 12/16/18 19:39 Ordered URINALYSIS W/MICROSCOPIC [UA W/MICROSCOPIC] [URIN] Stat Lab 12/16/18 16:51 Ordered Dextrose 5%-Lactated Ringers [Dextrose 5%-LR] 2,000 ml Med 12/16/18 19:45 Active IV ASDIRECTED Ondansetron [Zofran ODT] Med 12/16/18 19:40 Active 4 mg PO Q8H PRN Sodium Chloride 0.9% [Normal Saline] 1,000 ml Med 12/16/18 17:00 Active IV ASDIRECTED Sodium Chloride 0.9% [Saline Flush] Med 12/16/18 16:58 Active 10 ml FLUSH ASDIRECTED PRN Peripheral IV Insertion Adult [OM.PC] Routine Oth 12/16/18 16:58 Ordered Resuscitation Status Routine Resus Stat 12/16/18 19:38 Ordered EKG 12 Lead [EK] Routine Ther 12/16/18 16:51 Ordered Medication Orders Sodium Chloride (Normal Saline) 1,000 mls @ 999 mls/hr IV ASDIRECTED JULY Stop: 12/17/18 18:01 Last Admin: 12/16/18 18:07 Dose: 999 mls/hr Infusion: 12/16/18 18:07 Dose: 999 mls/hr Admin: 12/16/18 17:06 Dose: 999 mls/hr Dextrose/Lactated Ringer's (Dextrose 5%-Lr) 2,000 mls @ 250 mls/hr IV ASDIRECTED JULY Ondansetron HCl (Zofran Odt) 4 mg PO Q8H PRN PRN Reason: Nausea/Vomiting Sodium Chloride (Saline Flush) 10 ml FLUSH ASDIRECTED PRN PRN Reason: Keep Vein Open Last Admin: 12/16/18 17:02 Dose: 10 ml Labs: Laboratory Tests 12/16/18 12/16/18 12/16/18 Range/Units 17:05 17:05 17:05 WBC 7.7 (4.5-12.0) X10-3/uL RBC 3.40 (3.23-5.20) x10(6)uL Hgb 9.5 L (11.5-15.5) g/dL Hct 29.1 L (30.0-51.3) % MCV 85.5 (80-96) fL MCH 28.0 (27.7-33.6) pg MCHC 32.7 (32.2-35.4) g/dL RDW 19.3 H (11.5-15.5) % Plt Count 169 (125-369) X10(3)uL MPV 9.3 (7.4-10.4) fL Neut % (Auto) 79.6 (46-82) % Lymph % (Auto) 14.6 (13-37) % [place] % (Auto) 5.2 (4-12) % Eos % (Auto) 0 L (1.0-5.0) % Baso % (Auto) 0 (0-2) % Neut # (Auto) 6.2 (1.6-8.3) # Lymph # (Auto) 1.1 (0.6-5.0) # Starr # (Auto) 0.4 (0.0-1.3) # Eos # (Auto) 0.0 (0.0-0.8) # Baso # (Auto) 0.0 (0.0-0.2) # Sodium 138 (135-145) mmol/L Potassium 3.4 L D (3.5-5.3) mmol/L Chloride 107 D (100-110) mmol/L Carbon Dioxide 21 (21-32) mmol/L BUN 8 D (7-18) mg/dL Creatinine 1.0 (0.55-1.02) mg/dL Est Cr Clr Drug Dosing TNP Estimated GFR (MDRD) 59 L (>60) BUN/Creatinine Ratio 8.0 L (9-20) Glucose 197 H D (80-116) mg/dL Calcium 8.4 L (8.6-10.2) mg/dL Troponin I < 0.017 L (<0.017-0.056) ng/mL Meds: Medications Generic Name Dose Route Start Last Admin Trade Name Freq PRN Reason Stop Dose Admin Sodium Chloride 1,000 mls @ 999 mls/hr 12/16/18 17:00 12/16/18 18:07 Normal Saline IV 12/17/18 18:01 999 mls/hr ASDIRECTED JULY Administration Dextrose/Lactated Ringer's 2,000 mls @ 250 mls/hr 12/16/18 19:45 Dextrose 5%-Lr IV ASDIRECTED JULY Ondansetron HCl 4 mg 12/16/18 19:40 Zofran Odt PO Q8H PRN Nausea/Vomiting Sodium Chloride 10 ml 12/16/18 16:58 12/16/18 17:02 Saline Flush FLUSH 10 ml ASDIRECTED PRN Administration Keep Vein Open Departure - Departure Time of Disposition: 19:35 Disposition: Refer to Observation Condition: Fair Clinical Impression: Hypotension Qualifiers: Hypotension type: unspecified hypotension type Qualified Code(s): I95.9 - Hypotension, unspecified - Discharge Information *PRESCRIPTION DRUG MONITORING PROGRAM REVIEWED*: Not Applicable *COPY OF PRESCRIPTION DRUG MONITORING REPORT IN PATIENT PERLITA: Not Applicable Referrals: Remy Raymundo MD [Primary Care Provider] - Forms: ED Department Discharge - Problem List & Annotations (1) Hypotension SNOMED Code(s): 58500783 Code(s): I95.9 - HYPOTENSION, UNSPECIFIED Status: Acute Current Visit: Yes Annotation/Comment:: In the presence of bradycardia on Metoprolol and a recent dosage adjustment upwards of lisinopril, I suggested reducing Lisinopril 5 mg qd, and hold Metoprolol if VR<60 bpm. She did get up to ambulate without assistance. Qualifiers: Hypotension type: unspecified hypotension type Qualified Code(s): I95.9 - Hypotension, unspecified - Problem List Review Problem List Initiated/Reviewed/Updated: Yes - My Orders Last 24 Hours: My Active Orders 12/16/18 16:51 EKG Documentation Completion [RC] ASDIRECTED URINALYSIS W/MICROSCOPIC [UA W/MICROSCOPIC] [URIN] Stat EKG 12 Lead [EK] Routine 12/16/18 16:58 Sodium Chloride 0.9% [Saline Flush] 10 ml FLUSH ASDIRECTED PRN Peripheral IV Insertion Adult [OM.PC] Routine 12/16/18 17:00 Sodium Chloride 0.9% [Normal Saline] 1,000 ml IV ASDIRECTED 12/16/18 19:32 Patient Status Manage Transfer [TRANSFER] Routine 12/16/18 19:38 Resuscitation Status Routine 12/16/18 19:39 INR,PT,PROTHROMBIN TIME [COAG] Stat 12/16/18 19:40 Ondansetron [Zofran ODT] 4 mg PO Q8H PRN 12/16/18 19:45 Dextrose 5%-Lactated Ringers [Dextrose 5%-LR] 2,000 ml IV ASDIRECTED - Assessment/Plan Last 24 Hours: My Active Orders 12/16/18 16:51 EKG Documentation Completion [RC] ASDIRECTED URINALYSIS W/MICROSCOPIC [UA W/MICROSCOPIC] [URIN] Stat EKG 12 Lead [EK] Routine 12/16/18 16:58 Sodium Chloride 0.9% [Saline Flush] 10 ml FLUSH ASDIRECTED PRN Peripheral IV Insertion Adult [OM.PC] Routine 12/16/18 17:00 Sodium Chloride 0.9% [Normal Saline] 1,000 ml IV ASDIRECTED 12/16/18 19:32 Patient Status Manage Transfer [TRANSFER] Routine 12/16/18 19:38 Resuscitation Status Routine 12/16/18 19:39 INR,PT,PROTHROMBIN TIME [COAG] Stat 12/16/18 19:40 Ondansetron [Zofran ODT] 4 mg PO Q8H PRN 12/16/18 19:45 Dextrose 5%-Lactated Ringers [Dextrose 5%-LR] 2,000 ml IV ASDIRECTED Plan: Admit to Observation. Hospitalist to see in am.
[2018-12-16] MEDS: Sodium Chloride 0.9% 10 ML Syringe FLUSH PRN (17:02)
[2018-12-16] MEDS: Sodium Chloride 0.9% 1,000 ML IV SCH ×2 (17:06→18:07)
[2018-12-16] MEDS: Dextrose 5%-Lactated Ringers 1,000 ML IV SCH ×2 (19:33→23:33)
[2018-12-16] MEDS ORDERED: Ondansetron 4 MG Tab.DIS PO PRN (19:40)
[2018-12-17] MEDS ORDERED: traMADol 50 MG Tab PO ONE (00:39)
[2018-12-17] MEDS: Sodium Chloride 0.9% 10 ML Syringe FLUSH PRN ×2 (03:40→09:53)
[2018-12-17] MEDS ORDERED: Non-Formulary Medication 1 Each (Ondansetron Hcl [Zofran] 4 MG) PO PRN (08:44)
[2018-12-17] MEDS ORDERED: hydrOXYzine HCl 25 MG Tab PO PRN (08:44)
[2018-12-17] MEDS ORDERED: Acetaminophen 500 MG Tab PO PRN (08:44)
[2018-12-17] MEDS ORDERED: traMADol 50 MG Tab PO PRN (08:44)
--- NOTE | 2018-12-17 08:48 | PCM.HP ---
H&P History of Present Illness - General Date of Service: 12/17/18 Admit Problem/Dx: Admission Diagnosis/Problem Admission Diagnosis/Problem Hypotension Source of Information: Patient, Old Records History Limitations: Reports: No Limitations - History of Present Illness Initial Comments - Free Text/Narative: Tracy is a 48-year-old female came into the ER after she passed out. She was getting up to the bathroom when she fainted did not lose consciousness for more than 30 seconds, and did not hit her head. There was no warning, no association with any chest pain or shortness of breath. 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 She was just discharged yesterday morning from [facility] patient spent 3-4 days because of chest pain. She still said protein, malnutrition, chronic pain syndrome, CVA in May, and an ischemic bowel in July of this year. Abdominal Pain Score (Numeric/FACES): 8 - Related Data Allergies/Adverse Reactions: Allergies Allergy/AdvReac Type Severity Reaction Status Date / Time Penicillins Allergy Unknown Hives Verified 12/16/18 18:21 Sulfa (Sulfonamide Allergy Rash Verified 12/16/18 18:21 Antibiotics) zolpidem [From Ambien] Allergy Hallucinati Verified 12/16/18 18:21 ons propoxyphene napsylate AdvReac Stomach Verified 12/16/18 18:21 [From Jaqueline] Upset Home Medications: Home Meds tiZANidine [Zanaflex] 4 mg PO BEDTIME 06/04/17 [History] rOPINIRole [Requip] 0.25 mg PO BEDTIME 01/02/18 [History] Levothyroxine 200 mcg PO DAILY@0600 tablet 01/03/18 [Rx] Gabapentin [Neurontin] 300 mg PO TID 06/28/18 [History] Acetaminophen [Tylenol Extra Strength] 1,000 mg PO TID PRN 12/16/18 [History] Amitriptyline [Elavil] 50 mg PO BEDTIME 12/16/18 [History] Clopidogrel Bisulfate [Clopidogrel] 75 mg PO DAILY 12/16/18 [History] Dronabinol 5 mg PO BID 12/16/18 [History] Melatonin 9 mg PO BEDTIME 12/16/18 [History] Ondansetron HCl [Zofran] 4 mg PO TID PRN 12/16/18 [History] Pantoprazole [ProTONIX] 40 mg PO DAILY 12/16/18 [History] Phytonadione [Vitamin K] 100 mcg PO DAILY 12/16/18 [History] Sennosides/Docusate Sodium [Senexon-S Tablet] 1 tab PO Q48H 12/16/18 [History] Warfarin Sodium [Jantoven] 2 mg PO DAILY 12/16/18 [History] atorvaSTATin Calcium [Lipitor] 40 mg PO BEDTIME 12/16/18 [History] hydrOXYzine HCl [hydrOXYzine] 25 mg BID PRN 12/16/18 [History] traMADol HCl [Tramadol HCl] 50 mg BID PRN 12/16/18 [History] Past Medical History - Past Health History Medical/Surgical History: Denies Medical/Surgical History HEENT History: Reports: Impaired Vision Cardiovascular History: Reports: Cardiomyopathy, High Cholesterol, Hypertension , SOB on Exertion Other Cardiovascular History: broken heart syndrome Respiratory History: Reports: Bronchitis, Recurrent, COPD, Sleep Apnea, SOB Other Respiratory History: Uses CPAP. Gastrointestinal History: Reports: Gastritis Other Gastrointestinal History: Obese. 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 Right foot fracture. Wrist surgery. Neurological History: Reports: CVA, Vertigo Other Neuro History: CVA with L sided weakness Psychiatric History: Reports: Anxiety, Depression Endocrine/Metabolic History: Reports: Diabetes, Type II, Obesity/BMI 30+ Other Endocrine/Metabolic History: hx thyroid storm Hematologic History: Reports: Anemia, Anticoagulation Therapy, Blood Transfusion (s) - Infectious Disease History Infectious Disease History: Reports: Influenza - Past Surgical History Endocrine Surgical History: Reports: Other (See Below) Musculoskeletal Surgical History: Reports: Shoulder Surgery Social & Family History - Family History Family Medical History: Noncontributory Other Cardiac Family History: Mom had open heart surgery, pt unsure of what surgery was for. Musculoskeletal: Reports: Arthritis, Gout, Osteoporosis Endocrine/Metabolic: Reports: Diabetes, type II, Osteoporosis Oncologic: Reports: Lung - Tobacco Use Smoking Status *Q: Never Smoker - Caffeine Use Caffeine Use: Reports: None Other Caffeine Use: Neil Chase 1 per day - Recreational Drug Use Recreational Drug Use: No - Living Situation & Occupation Living situation: Reports: , with Family Occupation: Unemployed H&P Review of Systems - Review of Systems: Review Of Systems: ROS reveals no pertinent complaints other than HPI. Exam - Exam Exam: See Below - Vital Signs Vital Signs: Last Vital Signs Temp 97 F 12/17/18 03:45 Pulse 90 12/17/18 03:45 Resp 16 12/17/18 03:45 BP 135/78 12/17/18 03:45 Pulse Ox 97 12/17/18 03:45 Orthostatic Blood Pressure [ 97/62 Sitting] Orthostatic Blood Pressure [ 127/74 Supine] Weight: 82.372 kg - Exam General: Alert HEENT: PERRLA Neck: Supple Lungs: Clear to Auscultation Cardiovascular: Regular Rate GI/Abdominal Exam: Normal Bowel Sounds Extremities: Normal Inspection Skin: Warm, Dry Neuro Extensive - Mental Status: Alert, Oriented x3 Neuro Extensive - Motor, Sensory, Reflexes: CN II-XII Intact Psychiatric: Alert, Depressed - Patient Data Lab Results Last 24 hrs: Laboratory Results - last 24 hr 12/16/18 12/16/18 12/16/18 Range/Units 17:05 17:05 17:05 WBC 7.7 (4.5-12.0) X10-3/uL RBC 3.40 (3.23-5.20) x10(6)uL Hgb 9.5 L (11.5-15.5) g/dL Hct 29.1 L (30.0-51.3) % MCV 85.5 (80-96) fL MCH 28.0 (27.7-33.6) pg MCHC 32.7 (32.2-35.4) g/dL RDW 19.3 H (11.5-15.5) % Plt Count 169 (125-369) X10(3)uL MPV 9.3 (7.4-10.4) fL Neut % (Auto) 79.6 (46-82) % Lymph % (Auto) 14.6 (13-37) % [place] % (Auto) 5.2 (4-12) % Eos % (Auto) 0 L (1.0-5.0) % Baso % (Auto) 0 (0-2) % Neut # (Auto) 6.2 (1.6-8.3) # Lymph # (Auto) 1.1 (0.6-5.0) # [place] # (Auto) 0.4 (0.0-1.3) # Eos # (Auto) 0.0 (0.0-0.8) # Baso # (Auto) 0.0 (0.0-0.2) # PT (8.7-11.1) INR (0.89-1.13) Sodium 138 (135-145) mmol/L Potassium 3.4 L D (3.5-5.3) mmol/L Chloride 107 D (100-110) mmol/L Carbon Dioxide 21 (21-32) mmol/L BUN 8 D (7-18) mg/dL Creatinine 1.0 (0.55-1.02) mg/dL Est Cr Clr Drug Dosing TNP Estimated GFR (MDRD) 59 L (>60) BUN/Creatinine Ratio 8.0 L (9-20) Glucose 197 H D (80-116) mg/dL Calcium 8.4 L (8.6-10.2) mg/dL Troponin I < 0.017 L (<0.017-0.056) ng/mL Urine Color (YELLOW) Urine Appearance (CLEAR) Urine pH (5.0-6.5) Ur Specific Blunt (1.010-1.025) Urine Protein (NEGATIVE) mg/dL Urine Glucose (UA) (NORMAL) mg/dL Urine Ketones (NEGATIVE) mg/dL Urine Occult Blood (NEGATIVE) Urine Nitrite (NEGATIVE) Urine Bilirubin (NEGATIVE) Urine Urobilinogen (NEGATIVE) mg/dL Ur Leukocyte Esterase (NEGATIVE) Urine RBC (0-5) Urine WBC (0-5) Ur Squamous Epith Cells (NS,R,O) Urine Bacteria (NS) 12/16/18 12/16/18 Range/Units 17:05 18:05 WBC (4.5-12.0) X10-3/uL RBC (3.23-5.20) x10(6)uL Hgb (11.5-15.5) g/dL Hct (30.0-51.3) % MCV (80-96) fL MCH (27.7-33.6) pg MCHC (32.2-35.4) g/dL RDW (11.5-15.5) % Plt Count (125-369) X10(3)uL MPV (7.4-10.4) fL Neut % (Auto) (46-82) % Lymph % (Auto) (13-37) % [place] % (Auto) (4-12) % Eos % (Auto) (1.0-5.0) % Baso % (Auto) (0-2) % Neut # (Auto) (1.6-8.3) # Lymph # (Auto) (0.6-5.0) # [place] # (Auto) (0.0-1.3) # Eos # (Auto) (0.0-0.8) # Baso # (Auto) (0.0-0.2) # PT 40.4 H* (8.7-11.1) INR 4.22 H* (0.89-1.13) Sodium (135-145) mmol/L Potassium (3.5-5.3) mmol/L Chloride (100-110) mmol/L Carbon Dioxide (21-32) mmol/L BUN (7-18) mg/dL Creatinine (0.55-1.02) mg/dL Est Cr Clr Drug Dosing Estimated GFR (MDRD) (>60) BUN/Creatinine Ratio (9-20) Glucose (80-116) mg/dL Calcium (8.6-10.2) mg/dL Troponin I (<0.017-0.056) ng/mL Urine Color Yellow (YELLOW) Urine Appearance Clear (CLEAR) Urine pH 5.0 (5.0-6.5) Ur Specific Blunt 1.010 (1.010-1.025) Urine Protein Negative (NEGATIVE) mg/dL Urine Glucose (UA) Normal (NORMAL) mg/dL Urine Ketones Negative (NEGATIVE) mg/dL Urine Occult Blood Moderate H (NEGATIVE) Urine Nitrite Negative (NEGATIVE) Urine Bilirubin Small H (NEGATIVE) Urine Urobilinogen Normal (NEGATIVE) mg/dL Ur Leukocyte Esterase Negative (NEGATIVE) Urine RBC 0-5 (0-5) Urine WBC 0-5 (0-5) Ur Squamous Epith Cells Few H (NS,R,O) Urine Bacteria Few H (NS) Result Diagrams: 12/16/18 17:05 12/16/18 17:05 EKG INTERPRETATION Rhythm: NSR - Problem List (1) Syncope and collapse SNOMED Code(s): 198342105 ICD Code: R55 - SYNCOPE AND COLLAPSE Status: Acute Current Visit: Yes Problem List Initiated/Reviewed/Updated: Yes Orders Last 24hrs: Active Orders 24 hr Category Date Time Status Antiembolic Devices [RC] .Routine Care 12/16/18 21:12 Active Bedrest Bedside Commode [RC] ASDIRECTED Care 12/16/18 21:12 Active Height and Weight [RC] UPON Care 12/16/18 21:12 Active Pulse Oximetry [RC] PRN Care 12/16/18 21:12 Active VTE/DVT Education [RC] Click to Edit Care 12/16/18 21:12 Active Vital Signs [RC] Q4H Care 12/16/18 21:12 Active Dextrose 5%-Lactated Ringers 1,000 ml Med 12/16/18 19:33 Active IV ASDIRECTED Heparin Sodium [Heparin Lock Flush 100 Units/ML] Med 12/17/18 00:41 Active 500 units FLUSH ASDIRECTED PRN Ondansetron [Zofran ODT] Med 12/16/18 19:40 Active 4 mg PO Q8H PRN Sodium Chloride 0.9% [Saline Flush] Med 12/16/18 16:58 Active 10 ml FLUSH ASDIRECTED PRN DVT/VTE Prophylaxis Reflex [OM.PC] Per Unit Routine Oth 12/16/18 21:12 Ordered Peripheral IV Insertion Adult [OM.PC] Routine Oth 12/16/18 16:58 Ordered Resuscitation Status Routine Resus Stat 12/16/18 19:38 Ordered EKG 12 Lead [EK] Routine Ther 12/16/18 16:51 Stop Req Medication Orders Heparin Sodium (Porcine) (Heparin Lock Flush 100 Units/Ml) 500 units FLUSH ASDIRECTED PRN PRN Reason: Keep Vein Open Last Admin: 12/17/18 03:42 Dose: 500 units Dextrose/Lactated Ringer's (Dextrose 5%-Lactated Ringers) 1,000 mls @ 250 mls/ hr IV ASDIRECTED JULY Stop: 12/17/18 23:32 Last Admin: 12/16/18 23:33 Dose: 250 mls/hr Infusion: 12/16/18 23:33 Dose: 250 mls/hr Admin: 12/16/18 19:33 Dose: 250 mls/hr Ondansetron HCl (Zofran Odt) 4 mg PO Q8H PRN PRN Reason: Nausea/Vomiting Last Admin: 12/16/18 21:32 Dose: 4 mg Sodium Chloride (Saline Flush) 10 ml FLUSH ASDIRECTED PRN PRN Reason: Keep Vein Open Last Admin: 12/17/18 03:40 Dose: 10 ml Admin: 12/16/18 17:02 Dose: 10 ml Assessment/Plan Comment:: Telemetry at least 4 L of crystalloids overnight. She feels better this morning eating breakfast. She is able to get up to the bathroom without support. I will discharge her home chest multiple appointments that she shouldn't, physical therapy, mellitus which she needs to keep. I do not find a specific cause for the hypotension or syncope but it might be related to orthostasis, dehydration
[2018-12-17] MEDS ORDERED: Warfarin 2 MG Tab PO SCH (09:00)
[2018-12-17] MEDS ORDERED: Phytonadione 100 MCG Tab PO SCH (09:00)
[2018-12-17] MEDS ORDERED: Pantoprazole 40 MG Tab.CR PO SCH (09:00)
[2018-12-17] MEDS ORDERED: DRONABINOL 5 MG PO SCH (09:00)
[2018-12-17] MEDS ORDERED: Gabapentin 100 MG Cap PO SCH (09:00)
[2018-12-17] MEDS ORDERED: Clopidogrel 75 MG Tab PO SCH (09:00)
[2018-12-17 11:07] VITALS: BP 135/83; PULSE 102
[2018-12-17] MEDS ORDERED: Melatonin 3 MG Tab PO SCH (21:00)
[2018-12-17] MEDS ORDERED: rOPINIRole 0.5 MG Tab PO SCH (21:00)
[2018-12-17] MEDS ORDERED: tiZANidine 4 MG Tab PO SCH (21:00)
[2018-12-17] MEDS ORDERED: atorvaSTATin 40 MG Tab PO SCH (21:00)
== END 2018-12-17 10:00 | disposition home or self-care (01) ==
LOC: FB.ED 16:37 → FB.MS 19:32
PROVIDERS: ADMIT Family Medicine; ATTEND Family Medicine
DX: I95.9 Hypotension, unspecified (principal); I10 Essential (primary) hypertension; E78.00 Pure hypercholesterolemia, unspecified; E11.9 Type 2 diabetes mellitus without complications; J44.9 Chronic obstructive pulmonary disease, unspecified; G47.30 Sleep apnea, unspecified; Z88.0 Allergy status to penicillin; Z88.2 Allergy status to sulfonamides; Z88.8 Allergy status to other drugs, medicaments and biological substances; Z99.89 Dependence on other enabling machines and devices; Z79.02 Long term (current) use of antithrombotics/antiplatelets; Z79.01 Long term (current) use of anticoagulants; Z79.899 Other long term (current) drug therapy
CPT/HCPCS: 36415; 80048; 81001; 84484; 85025; 85610; 93005; 94150; 96360; 96361; 99285; A9270; G0378; J1642; J7030; J7042

== ENCOUNTER 2019-01-28 17:58 | Emergency (ER) | payer MEDICAID ==
[2019-01-28] MEDS ORDERED: Ondansetron 4 MG Tab.DIS PO ONE ×2 (17:59→18:14)
--- NOTE | 2019-01-28 18:20 | EDM.PDOC ---
ED HPI GENERAL MEDICAL PROBLEM - General Stated Complaint: FELL Time Seen by Provider: 01/28/19 18:00 Source of Information: Reports: Patient History Limitations: Reports: No Limitations - History of Present Illness INITIAL COMMENTS - FREE TEXT/NARRATIVE: 48-year-old female who reports that she was coming out of [employer] grocery store and she they're tripped or slipped at the entrance way and fell backwards striking her head on the concrete. She does not think she had loss of consciousness but does not remember all of the details of the fall. She has a headache and posterior neck pain and she presents via private vehicle. She also has some nausea but no vomiting. She rates the pain in her head and her neck as an 8/10. It is a sharp and sore pain. It is worse with palpation and movement. Her vision is okay. She has no arm or leg weakness. She has no back pain. She is currently on Eliquis. She felt completely well prior to the fall. There are no other associated signs or symptoms. There are no other modifying factors. 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) (Nothing) head and neck Pain Score (Numeric/FACES): 8 - Related Data Allergies Allergy/AdvReac Type Severity Reaction Status Date / Time Penicillins Allergy Unknown Hives Verified 12/16/18 18:21 Sulfa (Sulfonamide Allergy Rash Verified 12/16/18 18:21 Antibiotics) zolpidem [From Ambien] Allergy Hallucinati Verified 12/16/18 18:21 ons propoxyphene napsylate AdvReac Stomach Verified 12/16/18 18:21 [From Gera-N] Upset Home Meds: Home Meds tiZANidine [Zanaflex] 4 mg PO BEDTIME 06/04/17 [History] rOPINIRole [Requip] 0.25 mg PO BEDTIME 01/02/18 [History] Levothyroxine 200 mcg PO DAILY@0600 tablet 01/03/18 [Rx] Gabapentin [Neurontin] 300 mg PO TID 06/28/18 [History] Acetaminophen [Tylenol Extra Strength] 1,000 mg PO TID PRN 12/16/18 [History] Amitriptyline [Elavil] 50 mg PO BEDTIME 12/16/18 [History] Clopidogrel Bisulfate [Clopidogrel] 75 mg PO DAILY 12/16/18 [History] Dronabinol 5 mg PO BID 12/16/18 [History] Melatonin 9 mg PO BEDTIME 12/16/18 [History] Ondansetron HCl [Zofran] 4 mg PO TID PRN 12/16/18 [History] Pantoprazole [ProTONIX] 40 mg PO DAILY 12/16/18 [History] Phytonadione [Vitamin K] 100 mcg PO DAILY 12/16/18 [History] Sennosides/Docusate Sodium [Senexon-S Tablet] 1 tab PO Q48H 12/16/18 [History] Warfarin Sodium [Jantoven] 2 mg PO DAILY 12/16/18 [History] atorvaSTATin Calcium [Lipitor] 40 mg PO BEDTIME 12/16/18 [History] hydrOXYzine HCl [hydrOXYzine] 25 mg BID PRN 12/16/18 [History] traMADol HCl [Tramadol HCl] 50 mg BID PRN 12/16/18 [History] Past Medical History HEENT History: Reports: Impaired Vision Cardiovascular History: Reports: Cardiomyopathy (Takosubo syndrome), High Cholesterol, Hypertension Respiratory History: Reports: Bronchitis, Recurrent, COPD, Sleep Apnea, SOB Other Respiratory History: Uses CPAP. 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 Right foot fracture. Wrist surgery. Neurological History: Reports: CVA, Vertigo Psychiatric History: Reports: Anxiety, Depression Endocrine/Metabolic History: Reports: Diabetes, Type II, Obesity/BMI 30+ Other Endocrine/Metabolic History: hx thyroid storm Hematologic History: Reports: Anemia, Anticoagulation Therapy (With Eliquis), Blood Transfusion(s) - Infectious Disease History Infectious Disease History: Reports: Influenza - Past Surgical History GI Surgical History: Reports: Colon (Subtotal colectomy) Female Surgical History: Reports: Tubal Ligation Musculoskeletal Surgical History: Reports: ORIF (Of left wrist), Shoulder Surgery Oncologic Surgical History: Reports: Biopsy of Breast (Benign) Social & Family History - Family History Other Cardiac Family History: Mom had open heart surgery, pt unsure of what surgery was for. Musculoskeletal: Reports: Arthritis, Gout, Osteoporosis Endocrine/Metabolic: Reports: Diabetes, type II, Osteoporosis Oncologic: Reports: Lung - Tobacco Use Smoking Status *Q: Unknown Ever Smoked (Nonsmoker) - Caffeine Use Caffeine Use: Reports: None Other Caffeine Use: Neil Yello 1 per day - Alcohol Use Alcohol Use History: No - Living Situation & Occupation Living situation: Reports: Occupation: Unemployed ED ROS GENERAL - Review of Systems Review Of Systems: See Below Constitutional: Reports: No Symptoms HEENT: Reports: No Symptoms Respiratory: Reports: No Symptoms Cardiovascular: Reports: No Symptoms Endocrine: Reports: No Symptoms GI/Abdominal: Reports: Nausea : Reports: No Symptoms Musculoskeletal: Reports: Neck Pain Skin: Reports: No Symptoms (No open wounds) Neurological: Reports: Headache Hematologic/Lymphatic: Reports: Easy Bleeding, Easy Bruising, Other (Patient is on Eliquis) Immunologic: Reports: No Symptoms ED EXAM, HEAD INJURY - Physical Exam Exam: See Below Exam Limited By: No Limitations General Appearance: Alert, WD/WN, Moderate Distress (Secondary to pain) Head: Normocephalic, Scalp Swelling, Scalp Ecchymosis, Scalp Hematoma Nexus Criteria: Posterior, Midline Cervical Tenderness, Painful Distraction Injuries Eyes: Bilateral Eye: EOMI, Normal Inspection, PERRL Ears: Normal External Exam, Hearing Grossly Normal Nose: Normal Inspection, Normal Mucousa, No Blood Throat/Mouth: Normal Inspection, Normal Oropharynx, Normal Voice, No Airway Compromise Neck: Normal Inspection, Tender Midline, Other (C-collar applied by the nursing staff) Respiratory: No Respiratory Distress, Lungs Clear, Normal Breath Sounds, No Accessory Muscle Use, Chest Non-Tender Cardiovascular: Normal Peripheral Pulses, Regular Rate, Rhythm, No JVD GI/Abdominal Exam: Normal Bowel Sounds, Soft, Non-Tender, No Mass Extremities: Normal Inspection, Normal Range of Motion, Normal Capillary Refill 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 As Tested, No Motor/Sensory Deficits, Alert, Normal Mood/Affect, Oriented x 3 Skin: Normal Color, Warm/Dry - [place] Coma Score Best Eye Response ([place]): (4) Open Spontaneously Best Verbal Response ([place]): (5) Oriented Best Motor Response ([place]): (6) Obeys Commands [place] Total: 15 Course - Vital Signs Last Recorded V/S: Last Vital Signs Temp 36.7 C 01/28/19 17:58 Pulse 113 H 01/28/19 17:58 Resp 18 01/28/19 17:58 BP 126/95 H 01/28/19 17:58 Pulse Ox 100 01/28/19 17:58 - Orders/Labs/Meds Orders: Active Orders 24 hr Category Date Time Status Cervical Spine wo Cont [CT] Stat Exams 01/28/19 18:13 Ordered Head wo Cont [CT] Stat Exams 01/28/19 18:13 Ordered Meds: Medications Discontinued Medications Generic Name Dose Route Start Last Admin Trade Name Freq PRN Reason Stop Dose Admin Ondansetron HCl 4 mg 01/28/19 18:14 01/28/19 18:25 Zofran Odt PO 01/28/19 18:15 4 mg ONETIME ONE Administration Promethazine HCl 25 mg 01/28/19 19:06 01/28/19 19:10 Phenergan IM 01/28/19 19:07 25 mg ONETIME ONE Administration - Radiology Interpretation Free Text/Narrative:: CT scan of head shows small left medial parietal scalp hematoma with no fracture. There is a small chronic infarct in the posterior lateral right frontal lobe. There was no intracranial hemorrhage. This was per the radiologist. Cervical spine CT showed no fracture, subluxation or acute finding identified per the radiologist. - Re-Assessments/Exams Free Text/Narrative Re-Assessment/Exam: 01/28/19 20:40: Patient remains awake and alert. She is neurologically and hemodynamically stable. Her nausea is improved. She still has some pain in her head. CT scans of her head and her neck were negative for bleeding or fracture. She will be given a take-home pack of Zofran for any nausea that she might have. She may take Tylenol as needed for pain. And she should apply ice packs intermittently to her scalp area. She should follow-up with her primary doctor as needed. Departure - Departure Time of Disposition: 20:55 Disposition: Home, Self-Care 01 Condition: Good (Stable) Clinical Impression: Concussion with no loss of consciousness, Chronic anticoagulation Head contusion Qualifiers: Encounter type: initial encounter Contusion of head detail: scalp Qualified Code(s): S00.03XA - Contusion of scalp, initial encounter Cervical strain Qualifiers: Encounter type: initial encounter Qualified Code(s): S16.1XXA - Strain of muscle, fascia and tendon at neck level, initial encounter - Discharge Information Instructions: Head Injury, Adult, [id number], Concussion, Adult, [id number] , Cervical Sprain, [id number] Referrals: Remy Raymundo MD [Primary Care Provider] - Additional Instructions: The CT scans of your had an your neck showed no fractures and no bleeding. You do appear to have a mild concussion. You also have a strain to your neck. You should apply ice packs intermittently to your head. You may take Tylenol 1000 mg by mouth every 6 hours as needed for pain. Medication as prescribed for nausea (Zofran 4 mg ODT). Follow-up with your primary doctor as needed. Back to the emergency department for increasing pain, unrelenting vomiting, localized area of weakness or numbness or any other concerning sign or symptom. - My Orders Last 24 Hours: My Active Orders 01/28/19 18:13 Cervical Spine wo Cont [CT] Stat Head wo Cont [CT] Stat - Assessment/Plan Last 24 Hours: My Active Orders 01/28/19 18:13 Cervical Spine wo Cont [CT] Stat Head wo Cont [CT] Stat
[2019-01-28] MEDS ORDERED: Promethazine 25 MG/ML SDV IM ONE (19:06)
[2019-01-28 21:26] VITALS: BP 120/92
== END 2019-01-28 21:10 | disposition home or self-care (01) ==
LOC: FB.ED 17:58
DX: S06.0X0A Concussion without loss of consciousness, initial encounter (principal); S16.1XXA Strain of muscle, fascia and tendon at neck level, initial encounter; I10 Essential (primary) hypertension; E11.9 Type 2 diabetes mellitus without complications; F41.9 Anxiety disorder, unspecified; F32.9 Major depressive disorder, single episode, unspecified; E05.91 Thyrotoxicosis, unspecified with thyrotoxic crisis or storm; Z88.0 Allergy status to penicillin; Z88.2 Allergy status to sulfonamides; Z88.8 Allergy status to other drugs, medicaments and biological substances; Z79.01 Long term (current) use of anticoagulants; Z79.899 Other long term (current) drug therapy; Z86.73 Personal history of transient ischemic attack (TIA), and cerebral infarction without residual deficits; W01.198A Fall on same level from slipping, tripping and stumbling with subsequent striking against other object, initial encounter
CPT/HCPCS: 70450; 72125; 96372; 99283-25; A9270-GY; J2550

== ENCOUNTER 2019-03-21 16:42 | Emergency (ER) | payer MEDICAID ==
[2019-03-21] MEDS ORDERED: Sodium Chloride 0.9% 10 ML Syringe FLUSH PRN (17:29)
[2019-03-21] MEDS ORDERED: Ondansetron 4 MG/2 ML SDV IVPUSH ONE (17:32)
[2019-03-21] MEDS ORDERED: Sodium Chloride 0.9% 1,000 ML IV ONE (17:32)
[2019-03-21] MEDS ORDERED: Morphine 2 MG/ML Syringe IVPUSH ONE (17:32)
[2019-03-21 17:40] VITALS: BP 118/74; PULSE 62
[2019-03-21] MEDS ORDERED: HYDROmorphone 2 MG/ML SDV IVPUSH ONE (20:12)
--- NOTE | 2019-03-21 22:19 | EDM.PDOC ---
ED HPI GENERAL MEDICAL PROBLEM - General Chief Complaint: Abdominal Pain Stated Complaint: BACK PAIN CANT WALK Time Seen by Provider: 03/21/19 17:15 Source of Information: Reports: Patient History Limitations: Reports: No Limitations - History of Present Illness INITIAL COMMENTS - FREE TEXT/NARRATIVE: 48-year-old female who reports history of back pain but beginning on she developed worsening back pain that radiated down into her legs and she noticed that she seemed to be more weak in her legs and required her walker to be able to move around. She feels that some of it was pain in her legs that seem to be worsening but she also felt that her legs were weak and this has progressively worsened with time. He reports the pain in her back and down her legs is an 8/10. It is a sharp and throbbing pain and she has numbness in both of her feet. She has had no bowel incontinence. He does report that she has had no urine output since this morning. No dysuria or hematuria. She has had no fevers or chills. There is been no trauma to the area. No nausea or vomiting. No chest pain. No shortness of breath. She was initially seen at the walk-in clinic and the reports were that the patient was pale, somewhat sweaty and had a blood pressure that was marginal at 90 systolic. When she arrived here, her initial blood pressure was reported as 70 systolic but all other blood pressures have been 100 systolic plus. There are no other associated signs or symptoms. There are no other modifying factors. Onset: Other (3 days ago) Duration: Getting Worse Location: Reports: Back, Lower Extremity, Left, Lower Extremity, Right Quality: Reports: Sharp, Throbbing Severity: Moderate (to severe) Improves with: Reports: None Worsens with: Reports: Breathing (Is worse when she takes a deep breath in her lower back.), Other (Palpation), Movement Context: Reports: Other (As above) Associated Symptoms: Reports: Diaphoresis, Weakness Treatments [employer]ACH: Reports: Acetaminophen, NSAIDS Back Pain Score (Numeric/FACES): 8 - Related Data Allergies Allergy/AdvReac Type Severity Reaction Status Date / Time Penicillins Allergy Unknown Hives Verified 03/21/19 17:16 Sulfa (Sulfonamide Allergy Rash Verified 03/21/19 17:16 Antibiotics) zolpidem [From Ambien] Allergy Hallucinati Verified 03/21/19 17:16 ons propoxyphene napsylate AdvReac Stomach Verified 03/21/19 17:16 [From Gera-Agapito] Upset Home Meds: Home Meds tiZANidine [Zanaflex] 4 mg PO BEDTIME 06/04/17 [History] rOPINIRole [Requip] 0.25 mg PO BEDTIME 01/02/18 [History] Levothyroxine 200 mcg PO DAILY@0600 tablet 01/03/18 [Rx] Gabapentin [Neurontin] 300 mg PO TID 06/28/18 [History] Acetaminophen [Tylenol Extra Strength] 1,000 mg PO TID PRN 12/16/18 [History] Amitriptyline [Elavil] 50 mg PO BEDTIME 12/16/18 [History] Clopidogrel Bisulfate [Clopidogrel] 75 mg PO DAILY 12/16/18 [History] Dronabinol 5 mg PO BID 12/16/18 [History] Melatonin 9 mg PO BEDTIME 12/16/18 [History] Ondansetron HCl [Zofran] 4 mg PO TID PRN 12/16/18 [History] Pantoprazole [ProTONIX] 40 mg PO DAILY 12/16/18 [History] Phytonadione [Vitamin K] 100 mcg PO DAILY 12/16/18 [History] Sennosides/Docusate Sodium [Senexon-S Tablet] 1 tab PO Q48H 12/16/18 [History] Warfarin Sodium [Jantoven] 2 mg PO DAILY 12/16/18 [History] atorvaSTATin Calcium [Lipitor] 40 mg PO BEDTIME 12/16/18 [History] hydrOXYzine HCl [hydrOXYzine] 25 mg BID PRN 12/16/18 [History] traMADol HCl [Tramadol HCl] 50 mg BID PRN 12/16/18 [History] Past Medical History HEENT History: Reports: Impaired Vision Cardiovascular History: Reports: Cardiomyopathy (Takosubo syndrome), High Cholesterol, Hypertension Respiratory History: Reports: Bronchitis, Recurrent, COPD, Sleep Apnea, SOB Other Respiratory History: Uses CPAP. Gastrointestinal History: Reports: Gastritis Genitourinary History: Reports: Renal Disease [employer] SUPERVISOR History: Reports: Other (See Below) Other [employer] SUPERVISOR History: Musculoskeletal History: Reports: Back Pain, Chronic Other Musculoskeletal History: Torn L rotator cuff. Right foot fracture. Wrist surgery. Neurological History: Reports: CVA, Vertigo Other Neuro History: CVA with L sided weakness Psychiatric History: Reports: Anxiety, Depression Endocrine/Metabolic History: Reports: Diabetes, Type II, Obesity/BMI 30+ Other Endocrine/Metabolic History: hx thyroid storm Hematologic History: Reports: Anemia, Anticoagulation Therapy (With Eliquis), Blood Transfusion(s) - Infectious Disease History Infectious Disease History: Reports: Influenza - Past Surgical History GI Surgical History: Reports: Appendectomy, Bariatric Procedure (Gastric bypass) , Colon (Subtotal colectomy), EGD Female Surgical History: Reports: Tubal Ligation Musculoskeletal Surgical History: Reports: ORIF (Of left wrist), Shoulder Surgery Oncologic Surgical History: Reports: Biopsy of Breast (Benign) Social & Family History - Family History Other Cardiac Family History: Mom had open heart surgery, pt unsure of what surgery was for. Musculoskeletal: Reports: Arthritis, Gout, Osteoporosis Endocrine/Metabolic: Reports: Diabetes, type II, Osteoporosis Oncologic: Reports: Lung - Tobacco Use Smoking Status *Q: Never Smoker - Caffeine Use Caffeine Use: Reports: None Other Caffeine Use: Neil Yello 1 per day - Alcohol Use Alcohol Use History: No - Living Situation & Occupation Living situation: Reports: Occupation: Unemployed ED ROS GENERAL - Review of Systems Review Of Systems: See Below Constitutional: Reports: Weakness, Diaphoresis HEENT: Reports: No Symptoms Respiratory: Reports: No Symptoms Cardiovascular: Reports: No Symptoms Endocrine: Reports: No Symptoms GI/Abdominal: Reports: Abdominal Pain (Right-sided that seems to radiate from her back), Nausea. Denies: Vomiting : Reports: Other (Decreased urine output with no urine output since this morning.) Musculoskeletal: Reports: Back Pain, Leg Pain Skin: Reports: Diaphoresis Neurological: Reports: Tingling (Tingling and numbness going down both legs), Difficulty Walking, Weakness (In both legs), Other (Seems to radiate from her back down her legs with a pressure feeling) Hematologic/Lymphatic: Reports: Easy Bruising (She is chronically anticoagulated with Eliquis) Immunologic: Reports: No Symptoms ED EXAM, GENERAL - Physical Exam Exam: See Below Exam Limited By: No Limitations General Appearance: Alert, Moderate Distress, Obese Eye Exam: Bilateral Eye: EOMI, Normal Inspection, PERRL Ears: Normal External Exam, Hearing Grossly Normal Ear Exam: Bilateral Ear: Auricle Normal Nose: Normal Inspection, Normal Mucosa Throat/Mouth: Normal Voice, No Airway Compromise, Other (Dry mucous membranes) Head: Atraumatic, Normocephalic Neck: Normal Inspection, Supple, Non-Tender, Full Range of Motion Respiratory/Chest: No Respiratory Distress, Lungs Clear, Normal Breath Sounds, No Accessory Muscle Use, Chest Non-Tender Cardiovascular: Normal Peripheral Pulses, Regular Rate, Rhythm, No JVD Peripheral Pulses: 2+: Radial (L), Radial (R), Dorsalis Pedis (L), Dorsalis Pedis (R) GI/Abdominal: Normal Bowel Sounds, Soft, Non-Tender (She reports that her abdomen is still "numb" since her surgery.), No Distention Back Exam: Other (Diffuse tenderness along her lumbar spine but more so in the midline. No redness and no rashes.) Extremities: Normal Inspection, No Pedal Edema, Normal Capillary Refill, Other ( CC J have tenderness along her entire feet ankle and legs and she reports this as a numb and tingly type feeling.) Neurological: Alert, Oriented, CN II-XII Intact, Normal Cognition, Other (She seems to have bilateral lower extremity weakness low she does seem to move them symmetrically she has decreased ability to dorsiflex and plantar flex bilaterally. She also has decreased ability to move both lower extremities and this also appears to be symmetric.) Skin Exam: Intact, No Rash, Diaphoretic (Initially but this resolves and her extremities become warm) Course - Vital Signs Last Recorded V/S: Last Vital Signs Temp 36.5 C 03/21/19 16:45 Pulse 62 03/21/19 16:45 Resp 18 03/21/19 16:45 BP 118/74 03/21/19 16:45 Pulse Ox 98 03/21/19 16:45 - Orders/Labs/Meds Orders: Active Orders 24 hr Category Date Time Status Bladder Scan [RC] ONETIME Care 03/21/19 17:29 Active Irving Catheter Insertion [Insert Urinary Catheter] [OM. Care 03/21/19 19:00 Ordered PC] Q24H Urinary Catheter Assessment [RC] QSHIFT Care 03/21/19 18:47 Active Abdomen Pelvis wo Cont [CT] Stat Exams 03/21/19 18:43 Taken Lumbar Spine wo Cont [CT] Stat Exams 03/21/19 18:43 Taken Sodium Chloride 0.9% [Saline Flush] Med 03/21/19 17:29 Active 10 ml FLUSH ASDIRECTED PRN Peripheral IV Insertion Adult [OM.PC] Routine Oth 03/21/19 17:29 Ordered Medication Orders Sodium Chloride (Saline Flush) 10 ml FLUSH ASDIRECTED PRN PRN Reason: Keep Vein Open Labs: Laboratory Tests 03/21/19 03/21/19 03/21/19 Range/Units 17:45 17:45 17:45 WBC 5.2 (4.5-12.0) X10-3/uL RBC 2.62 L (3.23-5.20) x10(6)uL Hgb 8.2 L (11.5-15.5) g/dL Hct 25.0 L (30.0-51.3) % MCV 95.6 (80-96) fL MCH 31.4 (27.7-33.6) pg MCHC 32.9 (32.2-35.4) g/dL RDW 14.1 (11.5-15.5) % Plt Count 314 (125-369) X10(3)uL MPV 7.7 (7.4-10.4) fL Neut % (Auto) 49.2 (46-82) % Lymph % (Auto) 42.7 H (13-37) % Mercer % (Auto) 6.5 (4-12) % Eos % (Auto) 1 (1.0-5.0) % Baso % (Auto) 1 (0-2) % Neut # (Auto) 2.6 (1.6-8.3) # Lymph # (Auto) 2.2 (0.6-5.0) # Mercer # (Auto) 0.3 (0.0-1.3) # Eos # (Auto) 0.1 (0.0-0.8) # Baso # (Auto) 0.0 (0.0-0.2) # PT (8.7-11.1) INR (0.89-1.13) Sodium 141 (135-145) mmol/L Potassium 3.7 (3.5-5.3) mmol/L Chloride 105 (100-110) mmol/L Carbon Dioxide 26 (21-32) mmol/L BUN 16 (7-18) mg/dL Creatinine 1.1 H (0.55-1.02) mg/dL Est Cr Clr Drug Dosing 59.50 mL/min Estimated GFR (MDRD) 53 L (>60) BUN/Creatinine Ratio 14.5 (9-20) Glucose 75 L D (80-116) mg/dL Calcium 8.7 (8.6-10.2) mg/dL Magnesium 1.8 (1.8-2.5) mg/dL Total Bilirubin 0.3 (0.1-1.3) mg/dL AST 20 D (5-25) IU/L ALT 8 L D (12-36) U/L Alkaline Phosphatase 139 H (56-112) IU/L C-Reactive Protein 0.5 (0.5-0.9) mg/dL Total Protein 6.1 (6.0-8.0) g/dL Albumin 2.6 L (3.5-5.2) g/dL Globulin 3.5 g/dL Albumin/Globulin Ratio 0.7 Urine Color (YELLOW) Urine Appearance (CLEAR) Urine pH (5.0-6.5) Ur Specific [place] (1.010-1.025) Urine Protein (NEGATIVE) mg/dL Urine Glucose (UA) (NORMAL) mg/dL Urine Ketones (NEGATIVE) mg/dL Urine Occult Blood (NEGATIVE) Urine Nitrite (NEGATIVE) Urine Bilirubin (NEGATIVE) Urine Urobilinogen (NEGATIVE) mg/dL Ur Leukocyte Esterase (NEGATIVE) Urine RBC (0-5) Urine WBC (0-5) Ur Squamous Epith Cells (NS,R,O) Urine Bacteria (NS) 03/21/19 03/21/19 Range/Units 17:45 18:03 WBC (4.5-12.0) X10-3/uL RBC (3.23-5.20) x10(6)uL Hgb (11.5-15.5) g/dL Hct (30.0-51.3) % MCV (80-96) fL MCH (27.7-33.6) pg MCHC (32.2-35.4) g/dL RDW (11.5-15.5) % Plt Count (125-369) X10(3)uL MPV (7.4-10.4) fL Neut % (Auto) (46-82) % Lymph % (Auto) (13-37) % Mercer % (Auto) (4-12) % Eos % (Auto) (1.0-5.0) % Baso % (Auto) (0-2) % Neut # (Auto) (1.6-8.3) # Lymph # (Auto) (0.6-5.0) # Mercer # (Auto) (0.0-1.3) # Eos # (Auto) (0.0-0.8) # Baso # (Auto) (0.0-0.2) # PT 10.6 (8.7-11.1) INR 1.09 (0.89-1.13) Sodium (135-145) mmol/L Potassium (3.5-5.3) mmol/L Chloride (100-110) mmol/L Carbon Dioxide (21-32) mmol/L BUN (7-18) mg/dL Creatinine (0.55-1.02) mg/dL Est Cr Clr Drug Dosing mL/min Estimated GFR (MDRD) (>60) BUN/Creatinine Ratio (9-20) Glucose (80-116) mg/dL Calcium (8.6-10.2) mg/dL Magnesium (1.8-2.5) mg/dL Total Bilirubin (0.1-1.3) mg/dL AST (5-25) IU/L ALT (12-36) U/L Alkaline Phosphatase (56-112) IU/L C-Reactive Protein (0.5-0.9) mg/dL Total Protein (6.0-8.0) g/dL Albumin (3.5-5.2) g/dL Globulin g/dL Albumin/Globulin Ratio Urine Color Yellow (YELLOW) Urine Appearance Clear (CLEAR) Urine pH 5.0 (5.0-6.5) Ur Specific [place] 1.020 (1.010-1.025) Urine Protein 100 H (NEGATIVE) mg/dL Urine Glucose (UA) Normal (NORMAL) mg/dL Urine Ketones 15 H (NEGATIVE) mg/dL Urine Occult Blood Moderate H (NEGATIVE) Urine Nitrite Negative (NEGATIVE) Urine Bilirubin Negative (NEGATIVE) Urine Urobilinogen 1 H (NEGATIVE) mg/dL Ur Leukocyte Esterase Negative (NEGATIVE) Urine RBC 0-5 (0-5) Urine WBC 0-5 (0-5) Ur Squamous Epith Cells Few H (NS,R,O) Urine Bacteria Few H (NS) Meds: Medications Generic Name Dose Route Start Last Admin Trade Name Freq PRN Reason Stop Dose Admin Sodium Chloride 10 ml 03/21/19 17:29 Saline Flush FLUSH ASDIRECTED PRN Keep Vein Open Discontinued Medications Generic Name Dose Route Start Last Admin Trade Name Freq PRN Reason Stop Dose Admin Hydromorphone HCl 1 mg 03/21/19 20:12 03/21/19 21:08 Dilaudid IVPUSH 03/21/19 20:13 1 mg ONETIME ONE Administration Sodium Chloride 1,000 mls @ 999 mls/hr 03/21/19 17:32 03/21/19 18:26 Normal Saline IV 03/21/19 18:32 999 mls/hr .BOLUS ONE Administration Morphine Sulfate 4 mg 03/21/19 17:32 03/21/19 18:26 Morphine IVPUSH 03/21/19 17:33 4 mg ONETIME ONE Administration Ondansetron HCl 4 mg 03/21/19 17:32 03/21/19 18:26 Zofran IVPUSH 03/21/19 17:33 4 mg ONETIME ONE Administration - Radiology Interpretation Free Text/Narrative:: CT scan of abdomen and pelvis with lumbar spine showed no acute or inflammatory findings in the abdomen and pelvis CT. There is multilevel disc disease in the lumbar spine varying degrees of spinal now and neuroforaminal narrowing. The radiologist recommended MRI to characterize the spinal canal and neural foraminal narrowing if signs and symptoms were concerning and this was felt to be indicated. - Re-Assessments/Exams Free Text/Narrative Re-Assessment/Exam: 03/21/19 20:10: The patient's pain is really unimproved after 4 mg morphine IV. Her blood pressure is in the 140s systolic range at this point. She did have around 700 mL in her bladder and had been unable to urinate. Rectal exam was performed and there was good sphincter tone and good sensation in her perineum. The weakness and numbness in both lower extremities and bilateral lumbar radiculopathy associated with her back pain associated with the urinary retention is concerning for cauda equina syndrome and I feel that this will need to be ruled in or out urgently/emergently. This would require MRI which is not available at [facility] at this time. The patient is followed through the [facility] system and would prefer that I discuss her case with the doctors at [facility] in [place]. 03/21/19 20:30: I discussed patient's case with Dr. Stewart, ED physician at [facility] in [place], and he has agreed to accept the patient in transfer. The patient will be transferred via ambulance to [facility] in [place] for further evaluation and treatment. I did order Dilaudid 1 mg IV for the patient's pain. She remains benign medically stable at this point. The patient is in agreement with the plans for transfer. Departure - Departure Time of Disposition: 21:54 Disposition: DC/Tfer to Acute Hospital 02 Condition: Fair (Guarded) Clinical Impression: Lumbar back pain, Bilateral lumbar radiculopathy, Bilateral leg weakness - Discharge Information Referrals: Remy Raymundo MD [Primary Care Provider] - Forms: ED Department Discharge - My Orders Last 24 Hours: My Active Orders 03/21/19 17:29 Bladder Scan [RC] ONETIME Sodium Chloride 0.9% [Saline Flush] 10 ml FLUSH ASDIRECTED PRN Peripheral IV Insertion Adult [OM.PC] Routine 03/21/19 18:43 Abdomen Pelvis wo Cont [CT] Stat Lumbar Spine wo Cont [CT] Stat 03/21/19 18:47 Urinary Catheter Assessment [RC] QSHIFT 03/21/19 19:00 Irving Catheter Insertion [Insert Urinary Catheter] [OM.PC] Q24H - Assessment/Plan Last 24 Hours: My Active Orders 03/21/19 17:29 Bladder Scan [RC] ONETIME Sodium Chloride 0.9% [Saline Flush] 10 ml FLUSH ASDIRECTED PRN Peripheral IV Insertion Adult [OM.PC] Routine 03/21/19 18:43 Abdomen Pelvis wo Cont [CT] Stat Lumbar Spine wo Cont [CT] Stat 03/21/19 18:47 Urinary Catheter Assessment [RC] QSHIFT 03/21/19 19:00 Irving Catheter Insertion [Insert Urinary Catheter] [OM.PC] Q24H
== END 2019-03-21 21:54 ==
LOC: FB.ED 16:42
DX: M54.16 Radiculopathy, lumbar region (principal); E11.9 Type 2 diabetes mellitus without complications; E66.9 Obesity, unspecified; I10 Essential (primary) hypertension; E78.5 Hyperlipidemia, unspecified; E03.9 Hypothyroidism, unspecified; Z88.5 Allergy status to narcotic agent; Z88.0 Allergy status to penicillin; Z88.2 Allergy status to sulfonamides; Z88.8 Allergy status to other drugs, medicaments and biological substances; Z79.899 Other long term (current) drug therapy; Z68.26 Body mass index [BMI] 26.0-26.9, adult; Z79.01 Long term (current) use of anticoagulants
CPT/HCPCS: 36415; 51702; 72131; 74176; 80053; 81001; 82272; 83735; 85025; 85610; 86140; 96361; 96374; 96375; 99285; J1170; J2270; J2405; J7030

== ENCOUNTER 2019-08-28 14:37 | Emergency (ER) | payer MEDICAID, OTHER ==
[2019-08-28] MEDS: Sodium Chloride 0.9% 10 ML Syringe FLUSH PRN ×2 (14:55→16:01)
[2019-08-28] MEDS ORDERED: Morphine 2 MG/ML Syringe IVPUSH STA (15:01)
[2019-08-28] MEDS ORDERED: Albuterol/Ipratropium 3.0-0.5 MG/3 ML Neb Soln NEB ONE (15:01)
[2019-08-28] MEDS ORDERED: Ondansetron 4 MG/2 ML SDV IVPUSH ONE (15:01)
[2019-08-28] MEDS ORDERED: methylPREDNISolone Sodium Succinate 125 MG/2 ML SDV IVPUSH ONE (15:01)
[2019-08-28 15:10] VITALS: BP 136/87; PULSE 83
[2019-08-28] MEDS ORDERED: Ketorolac 30 MG/ML SDV IVPUSH ONE (15:41)
[2019-08-28] MEDS ORDERED: LORazepam 2 MG/ML SDV IVPUSH ONE (15:41)
--- NOTE | 2019-08-28 17:06 | EDM.PDOC ---
ED HPI GENERAL MEDICAL PROBLEM - General Chief Complaint: Respiratory Problem Stated Complaint: Cough Time Seen by Provider: 08/28/19 14:45 Source of Information: Reports: Patient History Limitations: Reports: No Limitations - History of Present Illness INITIAL COMMENTS - FREE TEXT/NARRATIVE: Patient presented to the ED because of cough and col x2 days. The cough is non- productive,denies having any fever or chills but c/o dyspnea although her oxygen saturation was 98% on RA. She was seen in the clinic yesterday and cbc, ccv-19 was done. She also c/o pleuritic pain that is worse with coughing. 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 Treatments - Related Data Allergies Allergy/AdvReac Type Severity Reaction Status Date / Time Penicillins Allergy Unknown Hives Verified 08/28/19 15:00 Sulfa (Sulfonamide Allergy Rash Verified 08/28/19 15:00 Antibiotics) zolpidem [From Ambien] Allergy Hallucinati Verified 08/28/19 15:00 ons propoxyphene napsylate AdvReac Stomach Verified 08/28/19 15:00 [From Gera-N] Upset Home Meds: Home Meds tiZANidine [Zanaflex] 4 mg PO BEDTIME 06/04/17 [History] rOPINIRole [Requip] 0.5 mg PO BEDTIME 01/02/18 [History] Levothyroxine 200 mcg PO DAILY@0600 tablet 01/03/18 [Rx] Acetaminophen [Tylenol Extra Strength] 1,000 mg PO TID PRN 12/16/18 [History] Ondansetron HCl [Zofran] 4 mg PO TID PRN 12/16/18 [History] Sennosides/Docusate Sodium [Senexon-S Tablet] 1 tab PO Q48H PRN 12/16/18 [ History] Albuterol Sulfate 1 ampule QID 08/28/19 [History] Apixaban [Eliquis] 5 mg BID 08/28/19 [History] Azithromycin 250 mg DAILY 08/28/19 [History] Codeine/guaiFENesin [guaiFENesin-Codeine Syrup] 10 ml PO Q6H PRN #120 ml [Rx] PARoxetine HCL [Paroxetine HCl] 60 mg DAILY 08/28/19 [History] hydrOXYzine pamoate [Vistaril] 50 mg PO Q6H #30 cap 08/28/19 [Rx] predniSONE [Prednisone] 40 mg PO QAM #10 tablet 08/28/19 [Rx] Past Medical History HEENT History: Reports: Impaired Vision Cardiovascular History: Reports: Cardiomyopathy, High Cholesterol, Hypertension Respiratory History: Reports: Bronchitis, Recurrent, COPD, Pneumonia, Recurrent , Sleep Apnea, SOB Other Respiratory History: Uses CPAP. Gastrointestinal History: Reports: Gastritis Other Gastrointestinal History: Obese. Genitourinary History: Reports: Renal Disease RELIEF WORKER History: Reports: Other (See Below) Other RELIEF WORKER History: Musculoskeletal History: Reports: Back Pain, Chronic Other Musculoskeletal History: Torn L rotator cuff. Right foot fracture. L Wrist surgery. Neurological History: Reports: CVA, Migraines, Vertigo Other Neuro History: CVA with L sided weakness Psychiatric History: Reports: Anxiety, Depression, Panic Attack Endocrine/Metabolic History: Reports: Diabetes, Type II, Hypothyroidism, Obesity /BMI 30+ Other Endocrine/Metabolic History: hx thyroid storm Hematologic History: Reports: Anemia, Anticoagulation Therapy, Blood Transfusion (s), Iron Deficiency - Infectious Disease History Infectious Disease History: Reports: Chicken Pox, Influenza - Past Surgical History Cardiovascular Surgical History: Reports: Other (See Below) Other Cardiovascular Surgeries/Procedures: has permanant loop recorder GI Surgical History: Reports: Appendectomy, Bariatric Procedure, Colon, Colonoscopy, EGD Female Surgical History: Reports: Tubal Ligation Musculoskeletal Surgical History: Reports: ORIF, Shoulder Surgery Oncologic Surgical History: Reports: Biopsy of Breast Social & Family History - Family History Family Medical History: Noncontributory Other Cardiac Family History: Mom had open heart surgery, pt unsure of what surgery was for. Musculoskeletal: Reports: Arthritis, Gout, Osteoporosis Endocrine/Metabolic: Reports: Diabetes, type II, Osteoporosis Oncologic: Reports: Lung - Tobacco Use Smoking Status *Q: Never Smoker - Caffeine Use Caffeine Use: Reports: None Other Caffeine Use: Neil Yello 1 per day - Recreational Drug Use Recreational Drug Use: No - Living Situation & Occupation Living situation: Reports: Occupation: Unemployed [facility] GENERAL - Review of Systems Review Of Systems: See Below Constitutional: Reports: No Symptoms HEENT: Reports: No Symptoms Respiratory: Reports: Shortness of Breath, Cough Cardiovascular: Reports: No Symptoms Endocrine: Reports: No Symptoms GI/Abdominal: Reports: No Symptoms : Reports: No Symptoms Musculoskeletal: Reports: No Symptoms Skin: Reports: No Symptoms Neurological: Reports: No Symptoms ED EXAM, GENERAL - Physical Exam Exam: See Below Exam Limited By: No Limitations General Appearance: Alert, No Apparent Distress Eye Exam: Bilateral Eye: PERRL Ears: Normal External Exam Nose: Normal Inspection, Normal Mucosa Throat/Mouth: Normal Inspection, Normal Lips, Normal Teeth Head: Atraumatic, Normocephalic Neck: Normal Inspection, Supple, Non-Tender Respiratory/Chest: No Respiratory Distress, Lungs Clear, Wheezing Cardiovascular: Normal Peripheral Pulses, Regular Rate, Rhythm, No Edema GI/Abdominal: Normal Bowel Sounds, Soft, Non-Tender, No Organomegaly (Female) Exam: Normal External Exam, Normal Speculum Exam Back Exam: Normal Inspection, Full Range of Motion Extremities: Normal Inspection, Normal Range of Motion Neurological: Alert, Oriented, CN II-XII Intact, Normal Cognition Course - Vital Signs Text/Narrative:: Labs/EKG/CXR was discussed with patient and verbalized full understanding EKG-NSR Trop-neg duoneb x1 solumedrol 125 mg IV toradol 30 mg IV x1 morphine 4 mg IV x1 ativan 1 mg IV x1 Last Recorded V/S: Last Vital Signs Temp 37.3 C 08/28/19 14:37 Pulse 83 08/28/19 14:37 Resp 24 H 08/28/19 14:37 BP 136/87 08/28/19 14:37 Pulse Ox 98 08/28/19 14:37 - Orders/Labs/Meds Orders: Active Orders 24 hr Category Date Time Status EKG Documentation Completion [RC] ASDIRECTED Care 08/28/19 14:53 Active RT Aerosol Therapy [RC] ASDIRECTED Care 08/28/19 15:03 Active Saline Lock Insert [OM.PC] Routine Oth 08/28/19 14:52 Ordered EKG 12 Lead [EK] Routine Ther 08/28/19 14:52 Ordered Labs: Laboratory Tests 08/28/19 08/28/19 08/28/19 Range/Units 15:05 15:05 15:05 WBC 5.9 (4.5-12.0) X10-3/uL RBC 3.95 (3.23-5.20) x10(6)uL Hgb 12.4 D (11.5-15.5) g/dL Hct 36.0 D (30.0-51.3) % MCV 91.2 (80-96) fL MCH 31.5 (27.7-33.6) pg MCHC 34.6 (32.2-35.4) g/dL RDW 13.2 (11.5-15.5) % Plt Count 239 (125-369) X10(3)uL MPV 7.5 (7.4-10.4) fL Neut % (Auto) 58.6 (46-82) % Lymph % (Auto) 25.7 (13-37) % [place] % (Auto) 13.6 H (4-12) % Eos % (Auto) 1 (1.0-5.0) % Baso % (Auto) 1 (0-2) % Neut # (Auto) 3.5 (1.6-8.3) # Lymph # (Auto) 1.5 (0.6-5.0) # [place] # (Auto) 0.8 (0.0-1.3) # Eos # (Auto) 0.1 (0.0-0.8) # Baso # (Auto) 0.0 (0.0-0.2) # PT 11.2 H (9.0-11.1) sec INR 1.16 (1.00-1.24) APTT 26.5 (24.4-33.2) SECONDS D-Dimer, Quantitative 0.60 H (0.0-0.59) mg/LFEU Sodium 142 (135-145) mmol/L Potassium 4.0 (3.5-5.3) mmol/L Chloride 107 (100-110) mmol/L Carbon Dioxide 22 (21-32) mmol/L BUN 18 (7-18) mg/dL Creatinine 1.1 H (0.55-1.02) mg/dL Est Cr Clr Drug Dosing 58.84 mL/min Estimated GFR (MDRD) 52 L (>60) BUN/Creatinine Ratio 16.4 (9-20) Glucose 69 L (80-116) mg/dL Calcium 8.2 L (8.6-10.2) mg/dL Total Bilirubin 0.3 (0.1-1.3) mg/dL AST 19 (5-25) IU/L ALT 7 L D (12-36) U/L Alkaline Phosphatase 205 H (56-112) IU/L Troponin I (4.0-60.3) pg/mL NT-Pro-B Natriuret Pep (<=125) pg/mL Total Protein 6.9 (6.0-8.0) g/dL Albumin 3.2 L (3.5-5.2) g/dL Globulin 3.7 g/dL Albumin/Globulin Ratio 0.9 04/03/20 Range/Units 15:05 WBC (4.5-12.0) X10-3/uL RBC (3.23-5.20) x10(6)uL Hgb (11.5-15.5) g/dL Hct (30.0-51.3) % MCV (80-96) fL MCH (27.7-33.6) pg MCHC (32.2-35.4) g/dL RDW (11.5-15.5) % Plt Count (125-369) X10(3)uL MPV (7.4-10.4) fL Neut % (Auto) (46-82) % Lymph % (Auto) (13-37) % [place] % (Auto) (4-12) % Eos % (Auto) (1.0-5.0) % Baso % (Auto) (0-2) % Neut # (Auto) (1.6-8.3) # Lymph # (Auto) (0.6-5.0) # [place] # (Auto) (0.0-1.3) # Eos # (Auto) (0.0-0.8) # Baso # (Auto) (0.0-0.2) # PT (9.0-11.1) sec INR (1.00-1.24) APTT (24.4-33.2) SECONDS D-Dimer, Quantitative (0.0-0.59) mg/LFEU Sodium (135-145) mmol/L Potassium (3.5-5.3) mmol/L Chloride (100-110) mmol/L Carbon Dioxide (21-32) mmol/L BUN (7-18) mg/dL Creatinine (0.55-1.02) mg/dL Est Cr Clr Drug Dosing mL/min Estimated GFR (MDRD) (>60) BUN/Creatinine Ratio (9-20) Glucose (80-116) mg/dL Calcium (8.6-10.2) mg/dL Total Bilirubin (0.1-1.3) mg/dL AST (5-25) IU/L ALT (12-36) U/L Alkaline Phosphatase (56-112) IU/L Troponin I 4.1 (4.0-60.3) pg/mL NT-Pro-B Natriuret Pep 67 (<=125) pg/mL Total Protein (6.0-8.0) g/dL Albumin (3.5-5.2) g/dL Globulin g/dL Albumin/Globulin Ratio Meds: Medications Discontinued Medications Generic Name Dose Route Start Last Admin Trade Name Freq PRN Reason Stop Dose Admin Albuterol/Ipratropium 3 ml 08/28/19 15:01 08/28/19 15:17 Duoneb 3.0-0.5 Mg/3 Ml NEB 08/28/19 15:02 3 ml ONETIME ONE Administration Heparin Sodium (Porcine) 500 units 08/28/19 17:00 08/28/19 17:07 Heparin Lock Flush 100 Units/Ml FLUSH 500 units ASDIRECTED PRN Administration Keep Vein Open Ketorolac Tromethamine 30 mg 08/28/19 15:41 08/28/19 16:00 Toradol IVPUSH 08/28/19 15:42 30 mg ONETIME ONE Administration Lorazepam 1 mg 08/28/19 15:41 08/28/19 16:02 Ativan IVPUSH 08/28/19 15:42 1 mg ONETIME ONE Administration Methylprednisolone Sodium Succinate 125 mg 08/28/19 15:01 08/28/19 15:24 Solu-Medrol IVPUSH 08/28/19 15:02 125 mg ONETIME ONE Administration Morphine Sulfate 4 mg 08/28/19 15:01 08/28/19 15:21 Morphine IVPUSH 08/28/19 15:02 4 mg NOW STA Administration Ondansetron HCl 4 mg 08/28/19 15:01 08/28/19 15:19 Zofran IVPUSH 08/28/19 15:02 4 mg ONETIME ONE Administration Sodium Chloride 10 ml 08/28/19 14:52 08/28/19 16:01 Saline Flush FLUSH 10 ml ASDIRECTED PRN Administration Keep Vein Open Departure - Departure Time of Disposition: 17:00 Disposition: Home, Self-Care 01 Condition: Good Clinical Impression: Chest wall pain, Acute bronchitis, Costochondritis, Anxiety - Discharge Information Prescriptions: Codeine/guaiFENesin [guaiFENesin-Codeine Syrup] 10 ml PO Q6H PRN #120 ml PRN Reason: Cough hydrOXYzine pamoate [Vistaril] 50 mg PO Q6H #30 cap predniSONE [Prednisone] 40 mg PO QAM #10 tablet Instructions: Bronchospasm, Adult, Costochondritis, [id number], Ketorolac injection, Ondansetron injection, Methylprednisolone Solution for Injection, Acute Bronchitis, Adult, [id number], Albuterol; Ipratropium solution for inhalation, Morphine injection solution Referrals: Remy Raymundo MD [Primary Care Provider] - Forms: ED Department Discharge Additional Instructions: please read acute bronchitis and bronchospasm, chest wall pain frequent hand washing increase oral fluids [id number] as directed prednisone 40 mg daily for 5 days starting 08/28 vistaril 50 mg every 6 hours as needed for anxiety,sleep,nausea robitussin with codeine, take 10 ml every 6 hours as needed for cough continue your neb treatment every 4-6 hours as needed for shortness of breath follow up if symptoms persist Sepsis Event Note - Evaluation Sepsis Screening Result: No Definite Risk - Focused Exam Vital Signs: Vital Signs Temp Pulse Resp BP Pulse Ox 08/28/19 14:37 37.3 C 83 24 H 136/87 98 Date Exam was Performed: 08/28/19 Time Exam was Performed: 20:44 - My Orders Last 24 Hours: My Active Orders 08/28/19 14:52 Saline Lock Insert [OM.PC] Routine EKG 12 Lead [EK] Routine 08/28/19 14:53 EKG Documentation Completion [RC] ASDIRECTED 08/28/19 15:03 RT Aerosol Therapy [RC] ASDIRECTED - Assessment/Plan Last 24 Hours: My Active Orders 08/28/19 14:52 Saline Lock Insert [OM.PC] Routine EKG 12 Lead [EK] Routine 08/28/19 14:53 EKG Documentation Completion [RC] ASDIRECTED 08/28/19 15:03 RT Aerosol Therapy [RC] ASDIRECTED
== END 2019-08-28 17:20 | disposition home or self-care (01) ==
LOC: FB.ED 14:37
DX: J20.9 Acute bronchitis, unspecified (principal); M94.0 Chondrocostal junction syndrome [Tietze]; F41.9 Anxiety disorder, unspecified; I10 Essential (primary) hypertension; E78.00 Pure hypercholesterolemia, unspecified; J44.9 Chronic obstructive pulmonary disease, unspecified; F32.9 Major depressive disorder, single episode, unspecified; E11.9 Type 2 diabetes mellitus without complications; E03.9 Hypothyroidism, unspecified; E66.9 Obesity, unspecified; Z68.29 Body mass index [BMI] 29.0-29.9, adult; Z88.0 Allergy status to penicillin; Z86.73 Personal history of transient ischemic attack (TIA), and cerebral infarction without residual deficits; Z88.2 Allergy status to sulfonamides; Z88.8 Allergy status to other drugs, medicaments and biological substances; Z79.01 Long term (current) use of anticoagulants; Z79.899 Other long term (current) drug therapy
CPT/HCPCS: 36415; 80053; 83880; 84484; 85025; 85379; 85610; 85730; 93005; 94640; 96374; 96375; 99285-25; J1642; J1885; J2060; J2270; J2405; J2930; J7620-GY

== ENCOUNTER 2020-03-10 07:38 | Day surgery (SDC) | payer MEDICAID ==
[2020-03-10] MEDS ORDERED: Lidocaine 1% PF 2 ML SDV IV ONE (07:39)
[2020-03-10] MEDS ORDERED: Propofol 200 MG/20 ML SDV IV ONE (07:39)
[2020-03-10] MEDS ORDERED: Lactated Ringers 1,000 ML IV SCH (08:45)
[2020-03-10] MEDS ORDERED: Sodium Chloride 0.9% 10 ML Syringe FLUSH PRN (08:45)
--- NOTE | 2020-03-10 09:32 | PCM.OPNOTE ---
- General Post-Op/Procedure Note Date of Surgery/Procedure: 03/10/20 Operative Procedure(s): c scope with hot loop snare bx Findings: ascending colon polyp Pre Op Diagnosis: + cologuard Post-Op Diagnosis: ascending colon polyp Anesthesia Technique: EVARISTO Primary Surgeon: Antonio Lang Anesthesia Provider: Jhon Marroquin Pathology: ascending colon polyp Complications: None Condition: Good Free Text/Narrative:: see dictation
[2020-03-10 11:40] VITALS: BP 125/81; PULSE 60
--- NOTE | 2020-03-10 15:05 | OR ---
DATE OF OPERATION: 03/10/2020 SURGEON: Antonio Lang MD PROCEDURE PERFORMED: Colonoscopy with hot loop snare. PREOPERATIVE DIAGNOSIS: Positive Cologuard. POSTOPERATIVE DIAGNOSIS: Ascending colon polyp. INDICATIONS FOR PROCEDURE: This is a 49-year-old white female who is referred with the positive Cologuard test. She was asymptomatic. She was offered and accepted colonoscopy. DESCRIPTION OF PROCEDURE: After an excellent IV sedation was administered, digital rectal exam was performed. No marked abnormality was noted. Flexible colonoscope was inserted and advanced to the cecum. The prep was excellent. The following findings were noted: Ascending colon; in the proximal ascending colon, a small polypoid lesion, biopsied with the hot loop snare and retrieved. Otherwise, unremarkable. Transverse colon was unremarkable. Descending colon, unremarkable. Sigmoid and rectum, unremarkable. Colon was deflated and the scope was removed. Patient tolerated the procedure well. Results will be sent to the patient via latter. /[id number] EVERT[place]/YOSHI
== END 2020-03-10 10:50 | disposition home or self-care (01) ==
LOC: FB.SDS 07:38
PROVIDERS: ATTEND Surgery
DX: D12.2 Benign neoplasm of ascending colon (principal); E11.43 Type 2 diabetes mellitus with diabetic autonomic (poly)neuropathy; E66.9 Obesity, unspecified; Z79.890 Hormone replacement therapy; Z79.899 Other long term (current) drug therapy; Z88.0 Allergy status to penicillin; Z88.2 Allergy status to sulfonamides; Z88.5 Allergy status to narcotic agent; Z88.8 Allergy status to other drugs, medicaments and biological substances; Z90.49 Acquired absence of other specified parts of digestive tract; Z98.890 Other specified postprocedural states; Z68.30 Body mass index [BMI] 30.0-30.9, adult
CPT/HCPCS: 00811; 45385; 88305; J1642; J2001; J2704; J7120

== ENCOUNTER 2020-06-29 22:35 | Emergency (ER) | payer BC, MEDICAID ==
[2020-06-29] MEDS ORDERED: HYDROmorphone 2 MG/ML SDV IVPUSH STA (22:38)
[2020-06-29] MEDS ORDERED: Ketorolac 30 MG/ML SDV IVPUSH STA (22:39)
[2020-06-29] MEDS ORDERED: Potassium Chloride 20 MEQ in Premix Bag 1 BAG IV ONE (22:51)
[2020-06-29] MEDS ORDERED: Ondansetron 4 MG/2 ML SDV IVPUSH STA (22:55)
[2020-06-29] MEDS ORDERED: Ondansetron 4 MG/2 ML SDV ONE (22:55)
--- NOTE | 2020-06-29 23:53 | EDM.PDOC ---
ED HPI GENERAL MEDICAL PROBLEM - General Chief Complaint: Lower Extremity Injury/Pain Stated Complaint: PAIN Time Seen by Provider: 06/29/20 22:50 Source of Information: Reports: Patient History Limitations: Reports: No Limitations - History of Present Illness INITIAL COMMENTS - FREE TEXT/NARRATIVE: Patient presented to the ED because low back pain and rt hip pain. She went to walk her dog then she slipped and fell on the ice. She was not able to ambulate because of pain on her lower back and rt hip. She didn't sustain any other injuries. right hip/buttock/lower back Pain Score (Numeric/FACES): 10 - Related Data Allergies Allergy/AdvReac Type Severity Reaction Status Date / Time Penicillins Allergy Unknown Hives Verified 03/10/20 08:39 aspirin Allergy Hives Verified 03/10/20 08:39 codeine Allergy Nausea and Verified 03/10/20 08:39 Vomiting Sulfa (Sulfonamide Allergy Hives Verified 03/10/20 08:39 Antibiotics) zolpidem [From Ambien] Allergy Hallucinati Verified 03/10/20 08:39 ons propoxyphene napsylate AdvReac Stomach Verified 03/10/20 08:39 [From Darvocet-N] Upset Home Meds: Home Meds tiZANidine [Zanaflex] 4 mg PO TID 06/04/17 [History] rOPINIRole [Requip] 0.5 mg PO BEDTIME 01/02/18 [History] Acetaminophen [Tylenol Extra Strength] 1,000 mg PO TID 12/16/18 [History] Albuterol Sulfate 1 ampule NEB QID PRN 08/28/19 [History] Apixaban [Eliquis] 5 mg PO BID 08/28/19 [History] PARoxetine HCL [Paroxetine HCl] 40 mg PO DAILY 08/28/19 [History] Levothyroxine 175 mcg PO DAILY@0600 03/09/20 [History] Sodium Fluoride [Denta 5000 Plus] 1 dose DT BEDTIME 03/09/20 [History] traMADol [Ultram] 50 mg PO Q6H PRN 03/09/20 [History] Past Medical History HEENT History: Reports: Impaired Vision Cardiovascular History: Reports: Cardiomyopathy, High Cholesterol, Hypertension Respiratory History: Reports: Bronchitis, Recurrent, COPD, Pneumonia, Recurrent, Sleep Apnea, SOB Other Respiratory History: Uses CPAP. 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 Right foot fracture. L Wrist surgery. RLS. LUMBAR DJD Neurological History: Reports: CVA, Migraines, TIA, Vertigo, Other (See Below) Other Neuro History: CVA with L sided weakness. SYNCOPE Psychiatric History: Reports: Anxiety, Depression, Panic Attack Endocrine/Metabolic History: Reports: Diabetes, Type II, Hypokalemia, Hypothyroidism, Obesity/BMI 30+ Other Endocrine/Metabolic History: hx thyroid storm Hematologic History: Reports: Anemia, Anticoagulation Therapy, B12 Deficiency, Blood Transfusion(s), Iron Deficiency Immunologic History: Reports: None Dermatologic History: Reports: None - Infectious Disease History Infectious Disease History: Reports: Chicken Pox, Influenza - Past Surgical History Head Surgeries/Procedures: Reports: None HEENT Surgical History: Reports: Adenoidectomy, Myringotomy w Tube(s), Oral Surgery, Tonsillectomy Cardiovascular Surgical History: Reports: Other (See Below) Other Cardiovascular Surgeries/Procedures: has permanant loop recorder Respiratory Surgical History: Reports: None GI Surgical History: Reports: Appendectomy, Bariatric Procedure, Colon, Colonoscopy, EGD, Other (See Below) Other GI Surgeries/Procedures: GUIDO EN Y GASTRIC BYPASS. ABD WOUND DEHISCENCE. I&D ABD WOUND. SMALL BOWEL RESCECTION. MULTIPLE LAPAROTOMIES AND LAPAROSCOPIES Female Surgical History: Reports: Tubal Ligation Endocrine Surgical History: Reports: Other (See Below) Other Endocrine Surgeries/Procedures: thyroid removed 20 years ago Neurological Surgical History: Reports: None Musculoskeletal Surgical History: Reports: ORIF, Shoulder Surgery Other Musculoskeletal Surgeries/Procedures:: L rotator cuff repair, Oncologic Surgical History: Reports: Biopsy of Breast Other Oncologic Surgeries/Procedures: L BREAST BX - BENIGN Dermatological Surgical History: Reports: None Social & Family History - Family History Family Medical History: No Pertinent Family History Other Cardiac Family History: Mom had open heart surgery, pt unsure of what surgery was for. Musculoskeletal: Reports: Arthritis, Gout, Osteoporosis Endocrine/Metabolic: Reports: Diabetes, type II, Osteoporosis Oncologic: Reports: Lung - Tobacco Use Tobacco Use Status *Q: Never Tobacco User Second Hand Smoke Exposure: Yes - Caffeine Use Caffeine Use: Reports: None Other Caffeine Use: REPORTS APPROX 2X WEEK - Recreational Drug Use Recreational Drug Use: No - Living Situation & Occupation Living situation: Reports: Occupation: Unemployed Review of Systems - Review of Systems Review Of Systems: See Below Constitutional: Reports: No Symptoms Ears: Reports: No Symptoms Nose: Reports: No Symptoms Mouth/Throat: Reports: No Symptoms Respiratory: Reports: No Symptoms Cardiovascular: Reports: No Symptoms GI/Abdominal: Reports: No Symptoms Genitourinary: Reports: No Symptoms Musculoskeletal: Reports: Other (pain over the right hip and lumbar spine) Skin: Reports: No Symptoms Neurological: Reports: No Symptoms Psychiatric: Reports: No Symptoms ED EXAM, GENERAL - Physical Exam Exam: See Below Exam Limited By: No Limitations General Appearance: Alert, No Apparent Distress Eye Exam: Bilateral Eye: PERRL Ears: Normal External Exam, Normal Canal Nose: Normal Inspection, Normal Mucosa, No Blood Throat/Mouth: Normal Inspection, Normal Lips, Normal Teeth Head: Atraumatic, Normocephalic Neck: Normal Inspection, Supple, Non-Tender, Full Range of Motion Respiratory/Chest: No Respiratory Distress, Lungs Clear, Normal Breath Sounds Cardiovascular: Normal Peripheral Pulses, Regular Rate, Rhythm, No Edema, No Gallop GI/Abdominal: Normal Bowel Sounds, Soft, Non-Tender, No Organomegaly Back Exam: Normal Inspection, Full Range of Motion Extremities: Normal Inspection, Other (tenderness rt hip and lumbar) Neurological: Alert, Oriented, CN II-XII Intact, Normal Cognition Skin Exam: Warm, Dry Course - Vital Signs Text/Narrative:: Labs and CT lumbar,pelvis,hip result was discussed with patient Toradol 30 mg IV x1 Dilaudid 1 mg IV x1 Zofran 4 mg IV x1 Tramadol 100 mg po x1 Tylenol 1000 mg PO x1 Last Recorded V/S: Last Vital Signs Temp 36.5 C 06/29/20 22:35 Pulse 84 06/29/20 22:35 Resp 17 06/29/20 22:35 BP 111/65 06/29/20 22:35 Pulse Ox 100 06/29/20 22:35 - Orders/Labs/Meds Orders: Active Orders 24 hr Category Date Time Status EKG Documentation Completion [RC] ASDIRECTED Care 06/29/20 23:13 Active Lumbar Spine wo Cont [CT] Stat Exams 06/29/20 22:49 Taken Pelvis wo Cont [CT] Stat Exams 06/29/20 22:49 Taken Acetaminophen [Tylenol Extra Strength] Med 06/30/20 00:30 Stat 1,000 mg PO NOW STA traMADol [Ultram] Med 06/30/20 00:30 Stat 100 mg PO NOW STA EKG 12 Lead [EK] Routine Ther 06/29/20 23:12 Ordered Medication Orders Acetaminophen (Tylenol Extra Strength) 1,000 mg PO NOW STA Stop: 06/30/20 00:31 Tramadol HCl (Ultram) 100 mg PO NOW STA Stop: 06/30/20 00:31 Labs: Laboratory Tests 06/29/20 06/29/20 06/29/20 Range/Units 23:25 23:25 23:25 WBC 7.6 (3.0-10.3) x10-3/uL RBC 3.34 L (3.60-5.20) x10(6)uL Hgb 8.0 L (11.4-15.5) g/dL Hct 26.4 L (34.2-48.2) % MCV 79.0 (76.7-100.5) fL MCH 24.0 (23.9-33.9) pg MCHC 30.4 L (31.9-34.8) g/dL RDW 17.1 H (12.3-16.5) % Plt Count 292 (151-488) x10(3)uL MPV 7.9 (7.1-12.4) fL Neut % (Auto) 56.4 (30.8-76.2) % Lymph % (Auto) 34.0 (18.4-52.1) % [place] % (Auto) 8.0 (4.4-15.7) % Eos % (Auto) 1.0 (0.6-8.1) % Baso % (Auto) 0.6 (0.2-1.5) % Neut # (Auto) 4.3 (1.5-6.3) x10-3/uL Lymph # (Auto) 2.6 (1.0-4.4) x10-3/uL [place] # (Auto) 0.6 (0.3-1.0) x10-3/uL Eos # (Auto) 0.1 (0.0-0.8) x10-3/uL Baso # (Auto) 0.0 (0.0-0.1) x10-3/uL PT 11.4 H (9.0-11.1) sec INR 1.06 (1.00-1.24) APTT 25.4 (24.4-33.2) SECONDS Sodium 140 (135-145) mmol/L Potassium 3.9 (3.5-5.3) mmol/L Chloride 105 (100-110) mmol/L Carbon Dioxide 25 (21-32) mmol/L BUN 19 H (7-18) mg/dL Creatinine 1.1 H (0.55-1.02) mg/dL Est Cr Clr Drug Dosing 58.18 mL/min Estimated GFR (MDRD) 52 L (>60) BUN/Creatinine Ratio 17.3 (9-20) Glucose 97 (80-116) mg/dL Calcium 8.1 L (8.6-10.2) mg/dL Total Bilirubin 0.2 (0.1-1.3) mg/dL AST 16 D (5-25) IU/L ALT 12 D (12-36) U/L Alkaline Phosphatase 167 H (56-112) IU/L Total Protein 6.5 (6.0-8.0) g/dL Albumin 3.4 L (3.5-5.2) g/dL Globulin 3.1 g/dL Albumin/Globulin Ratio 1.1 Meds: Medications Generic Name Dose Route Start Last Admin Trade Name Freq PRN Reason Stop Dose Admin Acetaminophen 1,000 mg 06/30/20 00:30 Tylenol Extra Strength PO 06/30/20 00:31 NOW STA Tramadol HCl 100 mg 06/30/20 00:30 Ultram PO 06/30/20 00:31 NOW STA Discontinued Medications Generic Name Dose Route Start Last Admin Trade Name Freq PRN Reason Stop Dose Admin Hydromorphone HCl 1 mg 06/29/20 22:38 06/29/20 22:50 Dilaudid IVPUSH 06/29/20 22:39 1 mg NOW STA Administration Potassium Chloride 20 meq/ 100 mls @ 50 mls/hr 06/29/20 22:51 06/29/20 23:22 Premix IV 06/30/20 00:50 Not Given ONETIME ONE Ketorolac Tromethamine 30 mg 06/29/20 22:39 06/29/20 22:50 Toradol IVPUSH 06/29/20 22:40 30 mg NOW STA Administration Ondansetron HCl 4 mg 06/29/20 22:55 06/29/20 22:57 Zofran IVPUSH 06/29/20 22:56 4 mg NOW STA Administration Ondansetron HCl Confirm 06/29/20 22:55 06/29/20 23:22 Zofran Administered 06/29/20 22:56 Not Given Dose 4 mg .ROUTE .STK-MED ONE Departure - Departure Time of Disposition: 01:00 Disposition: Home, Self-Care 01 Condition: Good Clinical Impression: Contusion, Hematoma, Sprain of hip, Contusion of thigh - Discharge Information Instructions: Contusion, [id number] Referrals: PCP,None [Primary Care Provider] - Forms: ED Department Discharge Additional Instructions: Please read discharge instructions on contusion,muscle strain, hematoma Do not take your eliquis for 3 days so the hematoma on your buttock will not get bigger Do not take aspirin,aleve, or ibuprofen for 1 week Take tramadol 100 mg with tylenol 1000 mg every 8 hours as needed for pain Follow up as needed Sepsis Event Note (ED) - Focused Exam Vital Signs: Vital Signs Temp Pulse Resp BP Pulse Ox 06/29/20 22:35 36.5 C 84 17 111/65 100 - My Orders Last 24 Hours: My Active Orders 06/29/20 22:49 Lumbar Spine wo Cont [CT] Stat Pelvis wo Cont [CT] Stat 06/29/20 23:12 EKG 12 Lead [EK] Routine 06/29/20 23:13 EKG Documentation Completion [RC] ASDIRECTED 06/30/20 00:30 traMADol [Ultram] 100 mg PO NOW STA 06/30/20 00:30 Acetaminophen [Tylenol Extra Strength] 1,000 mg PO NOW STA - Assessment/Plan Last 24 Hours: My Active Orders 06/29/20 22:49 Lumbar Spine wo Cont [CT] Stat Pelvis wo Cont [CT] Stat 06/29/20 23:12 EKG 12 Lead [EK] Routine 06/29/20 23:13 EKG Documentation Completion [RC] ASDIRECTED 06/30/20 00:30 traMADol [Ultram] 100 mg PO NOW STA 06/30/20 00:30 Acetaminophen [Tylenol Extra Strength] 1,000 mg PO NOW STA
[2020-06-30] MEDS ORDERED: traMADol 50 MG Tab PO STA (00:30)
[2020-06-30] MEDS ORDERED: Acetaminophen 500 MG Tab PO STA (00:30)
[2020-06-30] MEDS ORDERED: Sodium Chloride 0.9% 1,000 ML IV SCH (01:15)
[2020-06-30] MEDS ORDERED: HYDROmorphone 2 MG/ML SDV IVPUSH STA (01:55)
[2020-06-30 04:26] VITALS: BP 115/82; PULSE 72
== END 2020-06-30 02:35 ==
LOC: FB.ED 22:35
DX: S73.101A Unspecified sprain of right hip, initial encounter (principal); S70.11XA Contusion of right thigh, initial encounter; E11.9 Type 2 diabetes mellitus without complications; E03.9 Hypothyroidism, unspecified; J44.9 Chronic obstructive pulmonary disease, unspecified; Z88.6 Allergy status to analgesic agent; Z88.0 Allergy status to penicillin; Z88.5 Allergy status to narcotic agent; Z88.2 Allergy status to sulfonamides; Z88.8 Allergy status to other drugs, medicaments and biological substances; Z79.01 Long term (current) use of anticoagulants; Z79.899 Other long term (current) drug therapy; Z86.73 Personal history of transient ischemic attack (TIA), and cerebral infarction without residual deficits; Z77.22 Contact with and (suspected) exposure to environmental tobacco smoke (acute) (chronic); W00.0XXA Fall on same level due to ice and snow, initial encounter
CPT/HCPCS: 36415; 36430; 72131; 72192; 80053; 85018; 85025; 85610; 85730; 86850; 86900; 86901; 86920; 86922; 96374; 96375; 96376; 99285; A9270; J1170; J1642; J1885; J2405; J7030; P9016; 99284

== ENCOUNTER 2020-12-19 11:43 | Emergency (ER) | payer BC, MEDICAID ==
[2020-12-19] MEDS ORDERED: diphenhydrAMINE 50 MG/ML SDV IVPUSH PRN (12:10)
[2020-12-19] MEDS ORDERED: EPINEPHrine 1 MG/ML SDV IM PRN (12:10)
[2020-12-19] MEDS ORDERED: Casirivimab 1,200 MG, Imdevimab 1,200 MG in Sodium Chloride 0.9% 230 ML IV ONE (12:10)
[2020-12-19] MEDS ORDERED: Famotidine 20 MG/2 ML SDV IVPUSH PRN (12:10)
[2020-12-19] MEDS ORDERED: methylPREDNISolone Sodium Succinate 125 MG/2 ML SDV IVPUSH PRN (12:10)
[2020-12-19] MEDS ORDERED: Sodium Chloride 0.9% 10 ML Syringe FLUSH SCH (12:15)
[2020-12-19] MEDS: Sodium Chloride 0.9% 1,000 ML IV ONE (13:05)
[2020-12-19] MEDS: CASIRIVIMAB IV ONE (13:05)
[2020-12-19] MEDS: SODIUM CHLORIDE 0.9% IV ONE (13:05)
[2020-12-19] MEDS: IMDEVIMAB IV ONE (13:05)
[2020-12-19] MEDS: Ondansetron 4 MG/2 ML SDV IVPUSH ONE (13:34)
[2020-12-19] MEDS: Acetaminophen 500 MG Tab PO ONE (13:37)
--- NOTE | 2020-12-19 15:22 | EDM.PDOC ---
ED HPI GENERAL MEDICAL PROBLEM - General Stated Complaint: COVID Time Seen by Provider: 12/19/20 11:50 Source of Information: Reports: Patient History Limitations: Reports: No Limitations - History of Present Illness INITIAL COMMENTS - FREE TEXT/NARRATIVE: c/o COVID pt with positive COVID test 4d ago, has been quarantining at home eating and drinking has myalgias no CP slight nonproductive cough - Related Data Allergies Allergy/AdvReac Type Severity Reaction Status Date / Time Penicillins Allergy Unknown Hives Verified 12/19/20 12:49 aspirin Allergy Hives Verified 12/19/20 12:49 codeine Allergy Nausea and Verified 12/19/20 12:49 Vomiting Sulfa (Sulfonamide Allergy Hives Verified 12/19/20 12:49 Antibiotics) zolpidem [From Ambien] Allergy Hallucinati Verified 12/19/20 12:49 ons propoxyphene napsylate AdvReac Stomach Verified 12/19/20 12:49 [From Darvocet-N] Upset Home Meds: Home Meds tiZANidine [Zanaflex] 4 mg PO TID 06/04/17 [History] rOPINIRole [Requip] 0.5 mg PO BEDTIME 01/02/18 [History] Acetaminophen [Tylenol Extra Strength] 1,000 mg PO TID 12/16/18 [History] Albuterol Sulfate 1 ampule NEB QID PRN 08/28/19 [History] Apixaban [Eliquis] 5 mg PO BID 08/28/19 [History] PARoxetine HCL [Paroxetine HCl] 40 mg PO DAILY 08/28/19 [History] Levothyroxine 175 mcg PO DAILY@0600 03/09/20 [History] Sodium Fluoride [Denta 5000 Plus] 1 dose DT BEDTIME 03/09/20 [History] traMADol [Ultram] 50 mg PO Q6H PRN 03/09/20 [History] traMADol HCl [Tramadol HCl] 50 mg PO Q6H PRN #30 tablet 12/19/20 [Rx] Past Medical History HEENT History: Reports: Impaired Vision Cardiovascular History: Reports: Cardiomyopathy, High Cholesterol, Hypertension Respiratory History: Reports: Bronchitis, Recurrent, COPD, Pneumonia, Recurrent, Sleep Apnea, SOB Other Respiratory History: Uses CPAP. 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 Right foot fracture. L Wrist surgery. RLS. LUMBAR DJD Neurological History: Reports: CVA, Migraines, TIA, Vertigo, Other (See Below) Other Neuro History: CVA with L sided weakness. SYNCOPE Psychiatric History: Reports: Anxiety, Depression, Panic Attack Endocrine/Metabolic History: Reports: Diabetes, Type II, Hypokalemia, Hypothyroidism, Obesity/BMI 30+ Other Endocrine/Metabolic History: hx thyroid storm Hematologic History: Reports: Anemia, Anticoagulation Therapy, B12 Deficiency, Blood Transfusion(s), Iron Deficiency Immunologic History: Reports: None Dermatologic History: Reports: None - Infectious Disease History Infectious Disease History: Reports: Chicken Pox, Influenza - Past Surgical History Head Surgeries/Procedures: Reports: None HEENT Surgical History: Reports: Adenoidectomy, Myringotomy w Tube(s), Oral Surgery, Tonsillectomy Cardiovascular Surgical History: Reports: Other (See Below) Other Cardiovascular Surgeries/Procedures: has permanant loop recorder Respiratory Surgical History: Reports: None GI Surgical History: Reports: Appendectomy, Bariatric Procedure, Colon, Colonoscopy, EGD, Other (See Below) Other GI Surgeries/Procedures: GUIDO EN Y GASTRIC BYPASS. ABD WOUND DEHISCENCE. I&D ABD WOUND. SMALL BOWEL RESCECTION. MULTIPLE LAPAROTOMIES AND LAPAROSCOPIES Female Surgical History: Reports: Tubal Ligation Endocrine Surgical History: Reports: Other (See Below) Other Endocrine Surgeries/Procedures: thyroid removed 20 years ago Neurological Surgical History: Reports: None Musculoskeletal Surgical History: Reports: ORIF, Shoulder Surgery Other Musculoskeletal Surgeries/Procedures:: L rotator cuff repair, Oncologic Surgical History: Reports: Biopsy of Breast Other Oncologic Surgeries/Procedures: L BREAST BX - BENIGN Dermatological Surgical History: Reports: None Social & Family History - Family History Family Medical History: No Pertinent Family History Other Cardiac Family History: Mom had open heart surgery, pt unsure of what surgery was for. Musculoskeletal: Reports: Arthritis, Gout, Osteoporosis Endocrine/Metabolic: Reports: Diabetes, type II, Osteoporosis Oncologic: Reports: Lung - Caffeine Use Caffeine Use: Reports: None Other Caffeine Use: REPORTS APPROX 2X WEEK - Living Situation & Occupation Living situation: Reports: Occupation: Unemployed ED ROS GENERAL - Review of Systems Review Of Systems: See Below Constitutional: Reports: Fever HEENT: Reports: No Symptoms Respiratory: Reports: No Symptoms, Cough Endocrine: Reports: No Symptoms GI/Abdominal: Reports: No Symptoms : Reports: No Symptoms Musculoskeletal: Reports: Muscle Pain Skin: Reports: No Symptoms Neurological: Reports: No Symptoms Psychiatric: Reports: No Symptoms Hematologic/Lymphatic: Reports: No Symptoms Immunologic: Reports: No Symptoms ED EXAM, GENERAL - Physical Exam Exam: See Below Exam Limited By: No Limitations General Appearance: Alert, WD/WN, No Apparent Distress, Other (no cough observed, resting comfortably, normal speech, nonill) Ears: Hearing Grossly Normal Nose: Normal Inspection, Normal Mucosa Throat/Mouth: Normal Inspection, Normal Lips, Normal Oropharynx, Normal Voice, No Airway Compromise Head: Atraumatic, Normocephalic Neck: Normal Inspection, Supple, Non-Tender, Full Range of Motion. No: Lymphadenopathy (R), Lymphadenopathy (L) Respiratory/Chest: No Respiratory Distress, Lungs Clear, Normal Breath Sounds, No Accessory Muscle Use, Chest Non-Tender Cardiovascular: Regular Rate, Rhythm, No Edema, No Gallop, No Murmur GI/Abdominal: Soft, Non-Tender, No Organomegaly, No Distention Back Exam: Normal Inspection, Full Range of Motion. No: CVA Tenderness (R), CVA Tenderness (L) Extremities: Normal Inspection, Normal Range of Motion, Non-Tender, No Pedal Edema Neurological: Alert, Oriented, CN II-XII Intact, Normal Cognition, No Motor/Sensory Deficits Psychiatric: Normal Affect, Normal Mood Skin Exam: Warm, Dry, Intact, Normal Color, No Rash Lymphatic: No Adenopathy Course - Orders/Labs/Meds Orders: Active Orders 24 hr Category Date Time Status Implanted Port Access [RC] ONETIME Care 12/19/20 13:10 Active Vital Signs [RC] Q15M Care 12/19/20 12:10 Active Vital Signs [RC] Q15M Care 12/19/20 12:21 Active EPINEPHrine [Adrenalin] Med 12/19/20 12:10 Active 0.3 mg IM ONETIME PRN Famotidine [Pepcid] Med 12/19/20 12:10 Active 20 mg IVPUSH ONETIME PRN Sodium Chloride 0.9% [Saline Flush] Med 12/19/20 12:15 Active 30 ml FLUSH ASDIRECTED diphenhydrAMINE [Benadryl] Med 12/19/20 12:10 Active 50 mg IVPUSH ONETIME PRN methylPREDNISolone Sod Succ [Solu-MEDROL] Med 12/19/20 12:10 Active 125 mg IVPUSH ONETIME PRN Medication Orders Diphenhydramine HCl (Diphenhydramine 50 Mg/Ml Sdv) 50 mg IVPUSH ONETIME PRN PRN Reason: hypersensitivity reaction Epinephrine HCl (Epinephrine 1 Mg/Ml Sdv) 0.3 mg IM ONETIME PRN PRN Reason: hypersensitivity reaction Famotidine (Famotidine 20 Mg/2 Ml Sdv) 20 mg IVPUSH ONETIME PRN PRN Reason: hypersensitivity reaction Methylprednisolone Sodium Succinate (Methylprednisolone Sodium Succinate 125 Mg/2 Ml Sdv) 125 mg IVPUSH ONETIME PRN PRN Reason: hypersensitivity reaction Sodium Chloride (Sodium Chloride 0.9% 10 Ml Syringe) 30 ml FLUSH ASDIRECTED [facility] Meds: Medications Generic Name Dose Route Start Last Admin Trade Name Freq PRN Reason Stop Dose Admin Diphenhydramine HCl 50 mg 12/19/20 12:10 Diphenhydramine 50 Mg/Ml Sdv IVPUSH ONETIME PRN hypersensitivity reaction Epinephrine HCl 0.3 mg 12/19/20 12:10 Epinephrine 1 Mg/Ml Sdv IM ONETIME PRN hypersensitivity reaction Famotidine 20 mg 12/19/20 12:10 Famotidine 20 Mg/2 Ml Sdv IVPUSH ONETIME PRN hypersensitivity reaction Methylprednisolone Sodium Succinate 125 mg 12/19/20 12:10 Methylprednisolone Sodium Succinate 125 Mg/2 Ml Sdv IVPUSH ONETIME PRN hypersensitivity reaction Sodium Chloride 30 ml 12/19/20 12:15 Sodium Chloride 0.9% 10 Ml Syringe FLUSH ASDIRECTED JULY Discontinued Medications Generic Name Dose Route Start Last Admin Trade Name Freq PRN Reason Stop Dose Admin Acetaminophen 1,000 mg 12/19/20 13:24 12/19/20 13:37 Acetaminophen 500 Mg Tab PO 12/19/20 13:25 1,000 mg ONETIME ONE Administration Sodium Chloride 1,000 mls @ 999 mls/hr 12/19/20 12:09 12/19/20 13:05 Normal Saline IV 12/19/20 13:09 999 mls/hr .BOLUS ONE Administration Non-Formulary Medication 600 240 mls @ 250 mls/hr 12/19/20 12:19 12/19/20 13:05 mg/ Non-Formulary Medication IV 12/19/20 13:16 250 mls/hr 600 mg/ Sodium Chloride ONETIME ONE Administration Ondansetron HCl 4 mg 12/19/20 13:23 12/19/20 13:34 Ondansetron 4 Mg/2 Ml Sdv IVPUSH 12/19/20 13:24 4 mg ONETIME ONE Administration - Re-Assessments/Exams Free Text/Narrative Re-Assessment/Exam: 12/19/20 15:24 normal exam, recent labs at baseline, doing well, PO 99-100% on RA MPMP indicates last tramadol 50 mg was 4m ago from Dr Raymundo, d/t c/o myalgia pt given Rx for 30 more tabs of tramadol 50 mg no clinical signs or sxs or complications of COVID She med criteria for casirivimab-imderimab and was given a dose IV although skin turgor minimal dec'd, pt requested IVF and was given 1 liter of NS Departure - Departure Time of Disposition: 15:17 Disposition: Home, Self-Care 01 Condition: Good Clinical Impression: COVID-19 - Discharge Information *PRESCRIPTION DRUG MONITORING PROGRAM REVIEWED*: Not Applicable *COPY OF PRESCRIPTION DRUG MONITORING REPORT IN PATIENT PERLITA: Not Applicable Prescriptions: traMADol HCl [Tramadol HCl] 50 mg PO Q6H PRN #30 tablet PRN Reason: Pain Instructions: COVID-19, COVID-19: Quarantine vs. Isolation - CDC Referrals: PCP,Unknown [Primary Care Provider] - Additional Instructions: For pain and fever and inflammation, take acetaminophen 500 mg 2 tabs 4 times a day for 7 days. Do not take other medications that have acetaminophen in them. For pain (and cough), take tramadol 50 mg 1 tab every 6 hours as needed. Use heat for 10 minutes several times a day for sore muscles. Rest. Increase fluids. Contact your PCP 1-2 times per week with your progress. Quarantine at home. - My Orders Last 24 Hours: My Active Orders 12/19/20 12:10 Vital Signs [RC] Q15M EPINEPHrine [Adrenalin] 0.3 mg IM ONETIME PRN Famotidine [Pepcid] 20 mg IVPUSH ONETIME PRN diphenhydrAMINE [Benadryl] 50 mg IVPUSH ONETIME PRN methylPREDNISolone Sod Succ [Solu-MEDROL] 125 mg IVPUSH ONETIME PRN 12/19/20 12:15 Sodium Chloride 0.9% [Saline Flush] 30 ml FLUSH ASDIRECTED 12/19/20 12:21 Vital Signs [RC] Q15M 12/19/20 13:10 Implanted Port Access [RC] ONETIME - Assessment/Plan Last 24 Hours: My Active Orders 12/19/20 12:10 Vital Signs [RC] Q15M EPINEPHrine [Adrenalin] 0.3 mg IM ONETIME PRN Famotidine [Pepcid] 20 mg IVPUSH ONETIME PRN diphenhydrAMINE [Benadryl] 50 mg IVPUSH ONETIME PRN methylPREDNISolone Sod Succ [Solu-MEDROL] 125 mg IVPUSH ONETIME PRN 12/19/20 12:15 Sodium Chloride 0.9% [Saline Flush] 30 ml FLUSH ASDIRECTED 12/19/20 12:21 Vital Signs [RC] Q15M 12/19/20 13:10 Implanted Port Access [RC] ONETIME
[2020-12-19 18:24] VITALS: BP 112/76; PULSE 101
== END 2020-12-19 15:45 | disposition home or self-care (01) ==
LOC: FB.ED 11:43
DX: U07.1 COVID-19 (principal); I10 Essential (primary) hypertension; J44.9 Chronic obstructive pulmonary disease, unspecified; E11.9 Type 2 diabetes mellitus without complications; E03.9 Hypothyroidism, unspecified; E66.9 Obesity, unspecified; Z68.31 Body mass index [BMI] 31.0-31.9, adult; Z88.0 Allergy status to penicillin; Z88.5 Allergy status to narcotic agent; Z88.6 Allergy status to analgesic agent; Z88.2 Allergy status to sulfonamides; Z88.8 Allergy status to other drugs, medicaments and biological substances; Z79.01 Long term (current) use of anticoagulants; Z79.899 Other long term (current) drug therapy
CPT/HCPCS: 96374; 99283; A9270; J1642; J2405; J7030; J7050; M0243; Q0243

== ENCOUNTER 2021-02-08 10:56 | Emergency (ER) | payer BC, MEDICAID ==
[2021-02-08] MEDS ORDERED: Nitroglycerin 0.4 MG Tab.SL SL PRN (11:20)
[2021-02-08] MEDS ORDERED: Sodium Chloride 0.9% 10 ML Syringe FLUSH PRN (11:20)
[2021-02-08] MEDS ORDERED: Ketorolac 30 MG/ML SDV IVPUSH ONE (11:29)
[2021-02-08] MEDS ORDERED: LORazepam 2 MG/ML SDV IVPUSH ONE (11:29)
[2021-02-08] MEDS ORDERED: Morphine 4 MG/ML VIAL IVPUSH STA (12:22)
--- NOTE | 2021-02-08 12:28 | EDM.PDOC ---
ED HPI GENERAL MEDICAL PROBLEM - General Chief Complaint: Chest Pain Stated Complaint: CHEST PAIN Time Seen by Provider: 02/08/21 11:15 Source of Information: Reports: Patient History Limitations: Reports: No Limitations - History of Present Illness INITIAL COMMENTS - FREE TEXT/NARRATIVE: Patient presented to the ED because of chest pain, dyspnea for 1 month. The pain is pleuritic type,8/10. She also c/o dyspnea even though her oxygen sat was 100 on RA. There is no fever,chills, cough,cold. There is no N/V/D. She was diagnosed with Covid 6 weeks ago and since then she has been having these symptoms. Chest Pain Score (Numeric/FACES): 7 - Related Data Allergies Allergy/AdvReac Type Severity Reaction Status Date / Time Penicillins Allergy Unknown Hives Verified 12/19/20 12:49 aspirin Allergy Hives Verified 12/19/20 12:49 codeine Allergy Nausea and Verified 12/19/20 12:49 Vomiting Sulfa (Sulfonamide Allergy Hives Verified 12/19/20 12:49 Antibiotics) zolpidem [From Ambien] Allergy Hallucinati Verified 12/19/20 12:49 ons propoxyphene napsylate AdvReac Stomach Verified 12/19/20 12:49 [From Darvocet-N] Upset Home Meds: Home Meds tiZANidine [Zanaflex] 4 mg PO TID 06/04/17 [History] rOPINIRole [Requip] 0.5 mg PO BEDTIME 01/02/18 [History] Acetaminophen [Tylenol Extra Strength] 1,000 mg PO TID 12/16/18 [History] Albuterol Sulfate 1 ampule NEB QID PRN 08/28/19 [History] Apixaban [Eliquis] 5 mg PO BID 08/28/19 [History] PARoxetine HCL [Paroxetine HCl] 40 mg PO DAILY 08/28/19 [History] Levothyroxine 175 mcg PO DAILY@0600 03/09/20 [History] Sodium Fluoride [Denta 5000 Plus] 1 dose DT BEDTIME 03/09/20 [History] traMADol [Ultram] 50 mg PO Q6H PRN 03/09/20 [History] traMADol HCl [Tramadol HCl] 50 mg PO Q6H PRN #30 tablet 12/19/20 [Rx] predniSONE [Prednisone] 20 mg PO DAILY #7 tablet 02/08/21 [Rx] Past Medical History HEENT History: Reports: Impaired Vision Cardiovascular History: Reports: Cardiomyopathy, High Cholesterol, Hypertension Respiratory History: Reports: Bronchitis, Recurrent, COPD, Pneumonia, Recurrent, Sleep Apnea, SOB Other Respiratory History: Uses CPAP. RESTRICTIVE LUNG DISEASE Gastrointestinal History: Reports: Gastritis, GERD, Other (See Below) Other Gastrointestinal History: ISCHEMIC COLITIS Genitourinary History: Reports: Acute Renal Failure, Renal Disease CONTENT MANAGEMENT SPECIALIST History: Reports: , Other (See Below) Other CONTENT MANAGEMENT SPECIALIST History: Musculoskeletal History: Reports: Back Pain, Chronic, Osteoarthritis, Other (See Below) Other Musculoskeletal History: Torn L rotator cuff. Right foot fracture. L Wrist surgery. RLS. LUMBAR DJD Neurological History: Reports: CVA, Migraines, TIA, Vertigo, Other (See Below) Other Neuro History: CVA with L sided weakness. SYNCOPE Psychiatric History: Reports: Anxiety, Depression, Panic Attack Endocrine/Metabolic History: Reports: Diabetes, Type II, Hypokalemia, Hypothyroidism, Obesity/BMI 30+ Other Endocrine/Metabolic History: hx thyroid storm Hematologic History: Reports: Anemia, Anticoagulation Therapy, B12 Deficiency, Blood Transfusion(s), Iron Deficiency Immunologic History: Reports: None Dermatologic History: Reports: None - Infectious Disease History Infectious Disease History: Reports: Chicken Pox, Influenza - Past Surgical History Head Surgeries/Procedures: Reports: None HEENT Surgical History: Reports: Adenoidectomy, Myringotomy w Tube(s), Oral Surgery, Tonsillectomy Cardiovascular Surgical History: Reports: Other (See Below) Other Cardiovascular Surgeries/Procedures: has permanant loop recorder Respiratory Surgical History: Reports: None GI Surgical History: Reports: Appendectomy, Bariatric Procedure, Colon, Colonoscopy, EGD, Other (See Below) Other GI Surgeries/Procedures: GUIDO EN Y GASTRIC BYPASS. ABD WOUND DEHISCENCE. I&D ABD WOUND. SMALL BOWEL RESCECTION. MULTIPLE LAPAROTOMIES AND LAPAROSCOPIES Female Surgical History: Reports: Tubal Ligation Endocrine Surgical History: Reports: Other (See Below) Other Endocrine Surgeries/Procedures: thyroid removed 20 years ago Neurological Surgical History: Reports: None Musculoskeletal Surgical History: Reports: ORIF, Shoulder Surgery Other Musculoskeletal Surgeries/Procedures:: L rotator cuff repair, Oncologic Surgical History: Reports: Biopsy of Breast Other Oncologic Surgeries/Procedures: L BREAST BX - BENIGN Dermatological Surgical History: Reports: None Social & Family History - Family History Family Medical History: No Pertinent Family History Other Cardiac Family History: Mom had open heart surgery, pt unsure of what surgery was for. Musculoskeletal: Reports: Arthritis, Gout, Osteoporosis Endocrine/Metabolic: Reports: Diabetes, type II, Osteoporosis Oncologic: Reports: Lung - Tobacco Use Tobacco Use Status *Q: Unknown Ever Used Tobacco - Caffeine Use Caffeine Use: Reports: Soda Other Caffeine Use: REPORTS APPROX 2X WEEK - Living Situation & Occupation Living situation: Reports: Occupation: Unemployed ED ROS GENERAL - Review of Systems Review Of Systems: See Below Constitutional: Reports: No Symptoms HEENT: Reports: No Symptoms Respiratory: Reports: Shortness of Breath Cardiovascular: Reports: Chest Pain Endocrine: Reports: No Symptoms GI/Abdominal: Reports: No Symptoms : Reports: No Symptoms Musculoskeletal: Reports: No Symptoms Skin: Reports: No Symptoms Neurological: Reports: No Symptoms Psychiatric: Reports: No Symptoms ED EXAM, GENERAL - Physical Exam Exam: See Below Exam Limited By: No Limitations General Appearance: Alert, No Apparent Distress Eye Exam: Bilateral Eye: PERRL Ears: Normal External Exam, Normal Canal, Hearing Grossly Normal Nose: Normal Inspection, Normal Mucosa, No Blood Throat/Mouth: Normal Inspection, Normal Lips, Normal Teeth, Normal Gums, Normal Oropharynx, Normal Voice Head: Atraumatic, Normocephalic Neck: Normal Inspection, Supple, Non-Tender, Full Range of Motion Respiratory/Chest: No Respiratory Distress, Lungs Clear, Normal Breath Sounds, No Accessory Muscle Use, Other (mid chest tenderness) Cardiovascular: Normal Peripheral Pulses, Regular Rate, Rhythm, No Edema, No JVD, No Murmur, No Rub GI/Abdominal: Normal Bowel Sounds, Soft, Non-Tender, No Organomegaly Back Exam: Normal Inspection, Full Range of Motion Extremities: Normal Inspection, Normal Range of Motion, Non-Tender #1 Interpretation EKG Date: 02/08/21 Time: 10:54 Rhythm: NSR Rate (Beats/Min): 67 [place]: Normal P-Wave: Present QRS: Normal ST-T: Normal QT: Normal KS/PQ Interval: 131 Comparison: NA - No Prior EKG EKG Interpretation Comments: NSR Course - Vital Signs Last Recorded V/S: Last Vital Signs Temp 36.4 C 02/08/21 11:13 Pulse 79 02/08/21 13:31 Resp 16 02/08/21 13:31 BP 117/67 02/08/21 13:31 Pulse Ox 98 02/08/21 13:31 - Orders/Labs/Meds Orders: Active Orders 24 hr Category Date Time Status Saline Lock Insert [OM.PC] Routine Oth 02/08/21 11:20 Ordered EKG 12 Lead [EK] Routine Ther 02/08/21 11:20 Ordered Labs: Laboratory Tests 02/08/21 02/08/21 02/08/21 Range/Units 11:40 11:40 11:40 WBC 6.0 (3.0-10.3) x10-3/uL RBC 3.40 L (3.60-5.20) x10(6)uL Hgb 9.8 L (11.4-15.5) g/dL Hct 29.9 L (34.2-48.2) % MCV 87.9 (76.7-100.5) fL MCH 28.9 (23.9-33.9) pg MCHC 32.9 (31.9-34.8) g/dL RDW 16.9 H (12.3-16.5) % Plt Count 265 (151-488) x10(3)uL MPV 7.5 (7.1-12.4) fL Neut % (Auto) 59.8 (30.8-76.2) % Lymph % (Auto) 29.0 (18.4-52.1) % [place] % (Auto) 9.5 (4.4-15.7) % Eos % (Auto) 1.1 (0.6-8.1) % Baso % (Auto) 0.6 (0.2-1.5) % Neut # (Auto) 3.6 (1.5-6.3) x10-3/uL Lymph # (Auto) 1.7 (1.0-4.4) x10-3/uL [place] # (Auto) 0.6 (0.3-1.0) x10-3/uL Eos # (Auto) 0.1 (0.0-0.8) x10-3/uL Baso # (Auto) 0.0 (0.0-0.1) x10-3/uL Sodium 141 (135-145) mmol/L Potassium 4.9 D (3.5-5.3) mmol/L Chloride 106 (100-110) mmol/L Carbon Dioxide 25 (21-32) mmol/L BUN 26 H (7-18) mg/dL Creatinine 1.4 H (0.55-1.02) mg/dL Est Cr Clr Drug Dosing 45.71 mL/min Estimated GFR (MDRD) 39 L (>60) BUN/Creatinine Ratio 18.6 (9-20) Glucose 89 (80-116) mg/dL Calcium 8.7 (8.6-10.2) mg/dL Total Bilirubin 0.4 (0.1-1.3) mg/dL AST 23 D (5-25) IU/L ALT 10 L D (12-36) U/L Alkaline Phosphatase 180 H (56-112) IU/L Troponin I < 4.0 L (4.0-60.3) pg/mL NT-Pro-B Natriuret Pep (<=125) pg/mL Total Protein 6.8 (6.0-8.0) g/dL Albumin 3.5 (3.5-5.2) g/dL Globulin 3.3 g/dL Albumin/Globulin Ratio 1.1 02/08/21 Range/Units 11:40 WBC (3.0-10.3) x10-3/uL RBC (3.60-5.20) x10(6)uL Hgb (11.4-15.5) g/dL Hct (34.2-48.2) % MCV (76.7-100.5) fL MCH (23.9-33.9) pg MCHC (31.9-34.8) g/dL RDW (12.3-16.5) % Plt Count (151-488) x10(3)uL MPV (7.1-12.4) fL Neut % (Auto) (30.8-76.2) % Lymph % (Auto) (18.4-52.1) % [place] % (Auto) (4.4-15.7) % Eos % (Auto) (0.6-8.1) % Baso % (Auto) (0.2-1.5) % Neut # (Auto) (1.5-6.3) x10-3/uL Lymph # (Auto) (1.0-4.4) x10-3/uL [place] # (Auto) (0.3-1.0) x10-3/uL Eos # (Auto) (0.0-0.8) x10-3/uL Baso # (Auto) (0.0-0.1) x10-3/uL Sodium (135-145) mmol/L Potassium (3.5-5.3) mmol/L Chloride (100-110) mmol/L Carbon Dioxide (21-32) mmol/L BUN (7-18) mg/dL Creatinine (0.55-1.02) mg/dL Est Cr Clr Drug Dosing mL/min Estimated GFR (MDRD) (>60) BUN/Creatinine Ratio (9-20) Glucose (80-116) mg/dL Calcium (8.6-10.2) mg/dL Total Bilirubin (0.1-1.3) mg/dL AST (5-25) IU/L ALT (12-36) U/L Alkaline Phosphatase (56-112) IU/L Troponin I (4.0-60.3) pg/mL NT-Pro-B Natriuret Pep 161 H (<=125) pg/mL Total Protein (6.0-8.0) g/dL Albumin (3.5-5.2) g/dL Globulin g/dL Albumin/Globulin Ratio Meds: Medications Discontinued Medications Generic Name Dose Route Start Last Admin Trade Name Freq PRN Reason Stop Dose Admin Heparin Sodium (Porcine) 500 units 02/08/21 13:00 02/08/21 16:25 Heparin Sodium 100 Units/Ml 5 Ml Syringe FLUSH 500 units ASDIRECTED PRN Administration IV Use Heparin Sodium (Porcine) Confirm 02/08/21 16:18 02/08/21 16:36 Heparin Sodium 100 Units/Ml 5 Ml Syringe Administered 02/08/21 16:19 Not Given Dose 500 units .ROUTE .STK-MED ONE Ketorolac Tromethamine 30 mg 02/08/21 11:29 02/08/21 11:50 Ketorolac 30 Mg/Ml Sdv IVPUSH 02/08/21 11:30 30 mg ONETIME ONE Administration Lorazepam 1 mg 02/08/21 11:29 02/08/21 11:50 Lorazepam 2 Mg/Ml Sdv IVPUSH 02/08/21 11:30 1 mg ONETIME ONE Administration Morphine Sulfate 4 mg 02/08/21 12:22 02/08/21 12:28 Morphine 4 Mg/Ml Vial IVPUSH 02/08/21 12:23 4 mg NOW STA Administration Nitroglycerin 0.4 mg 02/08/21 11:20 Nitroglycerin 0.4 Mg Tab.Sl SL Q5M PRN Chest Pain Sodium Chloride 10 ml 02/08/21 11:20 02/08/21 11:35 Sodium Chloride 0.9% 10 Ml Syringe FLUSH 10 ml ASDIRECTED PRN Administration Keep Vein Open Departure - Departure Time of Disposition: 00:25 Disposition: Home, Self-Care 01 Condition: Good Clinical Impression: Anxiety, Post-COVID syndrome Prescriptions: predniSONE [Prednisone] 20 mg PO DAILY #7 tablet Instructions: Panic Attack, [id number], Nonspecific Chest Pain, Adult, [id number] Referrals: Remy Raymundo MD [Primary Care Provider] - Forms: ED Department Discharge Additional Instructions: Dirk read discharge instructions on chest wall pain and anxiety attack Continue your hydroxyzine as prescribed. You can double the dose if needed. Prednisone 20 mg daily for 7 days Follow up as needed Sepsis Event Note (ED) - Evaluation Sepsis Screening Result: No Definite Risk - Focused Exam Vital Signs: Vital Signs Temp Pulse Resp BP Pulse Ox 02/08/21 13:31 79 16 117/67 98 02/08/21 11:13 36.4 C 72 20 127/77 100 - My Orders Last 24 Hours: My Active Orders 02/08/21 11:20 Saline Lock Insert [OM.PC] Routine EKG 12 Lead [EK] Routine - Assessment/Plan Last 24 Hours: My Active Orders 02/08/21 11:20 Saline Lock Insert [OM.PC] Routine EKG 12 Lead [EK] Routine
[2021-02-08 13:32] VITALS: BP 117/67; PULSE 79
--- NOTE | 2021-02-08 15:43 | CR ---
CHEST ONE VIEW INDICATION: Chest pain. FINDINGS: AP portable upright view of the chest was obtained 02/08/21 and compared with 08/11/18 and 08/07/18. The heart remains normal in size. Overlying EKG leads are noted. The aorta is tortuous with minimal calcifications in the descending portion and arch. Overlying snaps are noted. A definite active infiltrate or effusion was not identified. Loop recorder is noted overlying the heart. Evidence of exogenous obesity is noted. [place] is noted postsurgically in the head of the humerus as previously. A Port-A-Cath is again noted in place, unchanged in position. IMPRESSION: Fairly stable appearance of the chest - no acute process. MTDD
== END 2021-02-08 13:42 | disposition home or self-care (01) ==
LOC: FB.ED 10:56
DX: F41.9 Anxiety disorder, unspecified (principal); E78.00 Pure hypercholesterolemia, unspecified; I10 Essential (primary) hypertension; J44.9 Chronic obstructive pulmonary disease, unspecified; E11.9 Type 2 diabetes mellitus without complications; E03.9 Hypothyroidism, unspecified; E66.9 Obesity, unspecified; Z86.73 Personal history of transient ischemic attack (TIA), and cerebral infarction without residual deficits; Z88.0 Allergy status to penicillin; Z88.5 Allergy status to narcotic agent; Z88.2 Allergy status to sulfonamides; Z88.8 Allergy status to other drugs, medicaments and biological substances; Z86.16 Personal history of COVID-19; Z79.899 Other long term (current) drug therapy; Z68.32 Body mass index [BMI] 32.0-32.9, adult
CPT/HCPCS: 71045; 80053; 83880; 84484; 85025; 93005; 96374; 96375; 99284; J1642; J1885; J2060; J2270

== ENCOUNTER 2021-02-22 15:42 | Emergency (ER) | payer BC, MEDICAID ==
[2021-02-22] MEDS: Ondansetron 4 MG Tab.DIS PO STA (16:31)
[2021-02-22] MEDS: Alum Hydroxide/Mag Hydroxide 15 ML, Lidocaine 2% 15 ML PO ONE ×2 (16:31)
--- NOTE | 2021-02-22 17:10 | EDM.PDOC ---
ED HPI GENERAL MEDICAL PROBLEM - General Chief Complaint: Abdominal Pain Stated Complaint: STOMACH PAIN,LIGHT HEADED Time Seen by Provider: 02/22/21 16:10 Source of Information: Reports: Patient History Limitations: Reports: No Limitations - History of Present Illness INITIAL COMMENTS - FREE TEXT/NARRATIVE: Patient presented to the ED because of abdominal pain over the epigastric area which started at 0800. The pain is sharp, constant,8/10 with associated nausea but no vomiting. the pain radiates to the mid back. There is no fever but has chills, no changes in bowel movements or urinary symptoms. Bilateral Upper Abdomen Pain Score (Numeric/FACES): 7 - Related Data Allergies Allergy/AdvReac Type Severity Reaction Status Date / Time Penicillins Allergy Unknown Hives Verified 12/19/20 12:49 aspirin Allergy Hives Verified 12/19/20 12:49 codeine Allergy Nausea and Verified 12/19/20 12:49 Vomiting Sulfa (Sulfonamide Allergy Hives Verified 12/19/20 12:49 Antibiotics) zolpidem [From Ambien] Allergy Hallucinati Verified 12/19/20 12:49 ons propoxyphene napsylate AdvReac Stomach Verified 12/19/20 12:49 [From Darvocet-N] Upset Home Meds: Home Meds tiZANidine [Zanaflex] 2 mg PO TID 06/04/17 [History] rOPINIRole [Requip] 0.5 mg PO BEDTIME 01/02/18 [History] Acetaminophen [Tylenol Extra Strength] 1,000 mg PO TID 12/16/18 [History] Albuterol Sulfate 1 ampule NEB QID PRN 08/28/19 [History] Levothyroxine 175 mcg PO DAILY@0600 03/09/20 [History] Sodium Fluoride [Denta 5000 Plus] 1 dose DT BEDTIME 03/09/20 [History] traMADol [Ultram] 50 mg PO Q6H PRN 03/09/20 [History] Clopidogrel [Plavix] 75 mg PO DAILY 02/22/21 [History] Escitalopram [Lexapro] 20 mg PO DAILY 02/22/21 [History] Mirtazapine 7.5 mg PO BEDTIME 02/22/21 [History] Pantoprazole Sodium [Protonix] 40 mg PO DAILY #60 tablet. 02/22/21 [Rx] bisoproloL fumarate [Bisoprolol Fumarate] 5 mg PO DAILY 02/22/21 [History] hydrOXYzine HCL [hydrOXYzine] 25 mg PO BID 02/22/21 [History] lisinopriL [Lisinopril] 10 mg PO DAILY 02/22/21 [History] Past Medical History HEENT History: Reports: Impaired Vision Cardiovascular History: Reports: Cardiomyopathy, High Cholesterol, Hypertension Respiratory History: Reports: Bronchitis, Recurrent, COPD, Pneumonia, Recurrent, Sleep Apnea, SOB Other Respiratory History: Uses CPAP. RESTRICTIVE LUNG DISEASE Gastrointestinal History: Reports: Gastritis, GERD, Other (See Below) Other Gastrointestinal History: ISCHEMIC COLITIS Genitourinary History: Reports: Acute Renal Failure, Renal Disease UPHOLSTERY SEWER History: Reports: , Other (See Below) Other UPHOLSTERY SEWER History: Musculoskeletal History: Reports: Back Pain, Chronic, Osteoarthritis, Other (See Below) Other Musculoskeletal History: Torn L rotator cuff. Right foot fracture. L Wri st surgery. RLS. LUMBAR DJD Neurological History: Reports: CVA, Migraines, TIA, Vertigo, Other (See Below) Other Neuro History: CVA with L sided weakness. SYNCOPE Psychiatric History: Reports: Anxiety, Depression, Panic Attack Endocrine/Metabolic History: Reports: Diabetes, Type II, Hypokalemia, Hypothyroidism, Obesity/BMI 30+ Other Endocrine/Metabolic History: hx thyroid storm Hematologic History: Reports: Anemia, Anticoagulation Therapy, B12 Deficiency, Blood Transfusion(s), Iron Deficiency Immunologic History: Reports: None Dermatologic History: Reports: None - Infectious Disease History Infectious Disease History: Reports: Chicken Pox, Influenza - Past Surgical History Head Surgeries/Procedures: Reports: None HEENT Surgical History: Reports: Adenoidectomy, Myringotomy w Tube(s), Oral Surgery, Tonsillectomy Cardiovascular Surgical History: Reports: Other (See Below) Other Cardiovascular Surgeries/Procedures: has permanant loop recorder Respiratory Surgical History: Reports: None GI Surgical History: Reports: Appendectomy, Bariatric Procedure, Colon, Colonoscopy, EGD, Other (See Below) Other GI Surgeries/Procedures: GUIDO EN Y GASTRIC BYPASS. ABD WOUND DEHISCENCE. I&D ABD WOUND. SMALL BOWEL RESCECTION. MULTIPLE LAPAROTOMIES AND LAPAROSCOPIES Female Surgical History: Reports: Tubal Ligation Endocrine Surgical History: Reports: Other (See Below) Other Endocrine Surgeries/Procedures: thyroid removed 20 years ago Neurological Surgical History: Reports: None Musculoskeletal Surgical History: Reports: ORIF, Shoulder Surgery Other Musculoskeletal Surgeries/Procedures:: L rotator cuff repair, Oncologic Surgical History: Reports: Biopsy of Breast Other Oncologic Surgeries/Procedures: L BREAST BX - BENIGN Dermatological Surgical History: Reports: None Social & Family History - Family History Family Medical History: No Pertinent Family History Other Cardiac Family History: Mom had open heart surgery, pt unsure of what surgery was for. Musculoskeletal: Reports: Arthritis, Gout, Osteoporosis Endocrine/Metabolic: Reports: Diabetes, type II, Osteoporosis Oncologic: Reports: Lung - Tobacco Use Tobacco Use Status *Q: Never Tobacco User - Caffeine Use Caffeine Use: Reports: Soda Other Caffeine Use: REPORTS APPROX 2X WEEK - Recreational Drug Use Recreational Drug Use: No - Living Situation & Occupation Living situation: Reports: Occupation: Unemployed ED ROS GENERAL - Review of Systems Review Of Systems: See Below Constitutional: Reports: No Symptoms HEENT: Reports: No Symptoms Respiratory: Reports: No Symptoms Cardiovascular: Reports: No Symptoms Endocrine: Reports: No Symptoms GI/Abdominal: Reports: Abdominal Pain, Nausea Musculoskeletal: Reports: No Symptoms Skin: Reports: No Symptoms Neurological: Reports: No Symptoms Psychiatric: Reports: No Symptoms ED EXAM, GI/ABD - Physical Exam Exam: See Below Exam Limited By: No Limitations General Appearance: Alert, No Apparent Distress Ears: Normal External Exam, Normal Canal Nose: Normal Inspection, Normal Mucosa, No Blood Throat/Mouth: Normal Inspection, Normal Lips, Normal Teeth, Normal Gums, Normal Oropharynx, Normal Voice Head: Atraumatic, Normocephalic Neck: Normal Inspection, Supple, Non-Tender, Full Range of Motion Respiratory/Chest: No Respiratory Distress, Lungs Clear, Normal Breath Sounds, No Accessory Muscle Use, Chest Non-Tender Cardiovascular: Normal Peripheral Pulses, Regular Rate, Rhythm, No Edema, No Gallop, No JVD, No Murmur GI/Abdominal Exam: Normal Bowel Sounds, Soft, No Organomegaly, No Distention, No Abnormal Bruit, No Mass, Other (epigastric tenderness) Back Exam: Normal Inspection, Full Range of Motion Extremities: Normal Inspection, Normal Range of Motion Neurological: Alert, Oriented, CN II-XII Intact, Normal Cognition, Normal Reflexes, No Motor/Sensory Deficits Course - Vital Signs Text/Narrative:: Lab/CT result was reviewed and discussed with patient NS 500 ml/hr(1L) Morphine 4 mg IV x1 Zofran 4 mg IV x1 Zofran ODT 4 mg PO x1 GI cocktail PO x1 Protonix 80 mg IV x1 Last Recorded V/S: Last Vital Signs Temp 36.9 C 02/22/21 17:55 Pulse 88 02/22/21 17:55 Resp 18 02/22/21 17:55 BP 148/78 H 02/22/21 17:55 Pulse Ox 98 02/22/21 17:55 - Orders/Labs/Meds Orders: Active Orders 24 hr Category Date Time Status Abdomen Pelvis w Cont [CT] Stat Exams 02/22/21 17:03 Taken Sodium Chloride 0.9% [Normal Saline] 1,000 ml Med 02/22/21 17:45 Active IV ASDIRECTED Medication Orders Sodium Chloride (Normal Saline) 1,000 mls @ 500 mls/hr IV ASDIRECTED JULY Last Admin: 02/22/21 17:48 Dose: 500 mls/hr Documented by: PAKO Labs: Laboratory Tests 02/22/21 02/22/21 02/22/21 Range/Units 16:35 16:35 16:35 WBC 8.9 (3.0-10.3) x10-3/uL RBC 3.65 (3.60-5.20) x10(6)uL Hgb 10.6 L (11.4-15.5) g/dL Hct 32.4 L (34.2-48.2) % MCV 88.8 (76.7-100.5) fL MCH 29.0 (23.9-33.9) pg MCHC 32.7 (31.9-34.8) g/dL RDW 17.7 H (12.3-16.5) % Plt Count 277 (151-488) x10(3)uL MPV 7.4 (7.1-12.4) fL Neut % (Auto) 68.0 (30.8-76.2) % Lymph % (Auto) 23.6 (18.4-52.1) % [place] % (Auto) 7.1 (4.4-15.7) % Eos % (Auto) 0.7 (0.6-8.1) % Baso % (Auto) 0.6 (0.2-1.5) % Neut # (Auto) 6.0 (1.5-6.3) x10-3/uL Lymph # (Auto) 2.1 (1.0-4.4) x10-3/uL [place] # (Auto) 0.6 (0.3-1.0) x10-3/uL Eos # (Auto) 0.1 (0.0-0.8) x10-3/uL Baso # (Auto) 0.1 (0.0-0.1) x10-3/uL Sodium 140 (135-145) mmol/L Potassium 4.6 (3.5-5.3) mmol/L Chloride 106 (100-110) mmol/L Carbon Dioxide 19 L (21-32) mmol/L BUN 33 H (7-18) mg/dL Creatinine 1.6 H (0.55-1.02) mg/dL Est Cr Clr Drug Dosing TNP Estimated GFR (MDRD) 34 L (>60) BUN/Creatinine Ratio 20.6 H (9-20) Glucose 82 (80-116) mg/dL Calcium 8.3 L (8.6-10.2) mg/dL Total Bilirubin 0.3 (0.1-1.3) mg/dL AST 19 D (5-25) IU/L ALT 12 D (12-36) U/L Alkaline Phosphatase 168 H (56-112) IU/L Troponin I (4.0-60.3) pg/mL Total Protein 6.9 (6.0-8.0) g/dL Albumin 3.6 (3.5-5.2) g/dL Globulin 3.3 g/dL Albumin/Globulin Ratio 1.1 Amylase 57 (25-115) U/L Lipase 95 (73-393) U/L Urine Color (YELLOW) Urine Appearance (CLEAR) Urine pH (5.0-6.5) Ur Specific [place] (1.010-1.025) Urine Protein (NEGATIVE) mg/dL Urine Glucose (UA) (NORMAL) mg/dL Urine Ketones (NEGATIVE) mg/dL Urine Occult Blood (NEGATIVE) Urine Nitrite (NEGATIVE) Urine Bilirubin (NEGATIVE) Urine Urobilinogen (NEGATIVE) mg/dL Ur Leukocyte Esterase (NEGATIVE) Urine RBC (0-5) Urine WBC (0-5) Ur Squamous Epith Cells (NS,R,O) Urine Bacteria (NS) 02/22/21 02/22/21 Range/Units 16:45 16:45 WBC (3.0-10.3) x10-3/uL RBC (3.60-5.20) x10(6)uL Hgb (11.4-15.5) g/dL Hct (34.2-48.2) % MCV (76.7-100.5) fL MCH (23.9-33.9) pg MCHC (31.9-34.8) g/dL RDW (12.3-16.5) % Plt Count (151-488) x10(3)uL MPV (7.1-12.4) fL Neut % (Auto) (30.8-76.2) % Lymph % (Auto) (18.4-52.1) % [place] % (Auto) (4.4-15.7) % Eos % (Auto) (0.6-8.1) % Baso % (Auto) (0.2-1.5) % Neut # (Auto) (1.5-6.3) x10-3/uL Lymph # (Auto) (1.0-4.4) x10-3/uL [place] # (Auto) (0.3-1.0) x10-3/uL Eos # (Auto) (0.0-0.8) x10-3/uL Baso # (Auto) (0.0-0.1) x10-3/uL Sodium (135-145) mmol/L Potassium (3.5-5.3) mmol/L Chloride (100-110) mmol/L Carbon Dioxide (21-32) mmol/L BUN (7-18) mg/dL Creatinine (0.55-1.02) mg/dL Est Cr Clr Drug Dosing Estimated GFR (MDRD) (>60) BUN/Creatinine Ratio (9-20) Glucose (80-116) mg/dL Calcium (8.6-10.2) mg/dL Total Bilirubin (0.1-1.3) mg/dL AST (5-25) IU/L ALT (12-36) U/L Alkaline Phosphatase (56-112) IU/L Troponin I 4.1 (4.0-60.3) pg/mL Total Protein (6.0-8.0) g/dL Albumin (3.5-5.2) g/dL Globulin g/dL Albumin/Globulin Ratio Amylase (25-115) U/L Lipase (73-393) U/L Urine Color Yellow (YELLOW) Urine Appearance Slightly cloudy (CLEAR) Urine pH 5.0 (5.0-6.5) Ur Specific [place] 1.025 (1.010-1.025) Urine Protein Negative (NEGATIVE) mg/dL Urine Glucose (UA) Normal (NORMAL) mg/dL Urine Ketones Negative (NEGATIVE) mg/dL Urine Occult Blood Negative (NEGATIVE) Urine Nitrite Negative (NEGATIVE) Urine Bilirubin Small H (NEGATIVE) Urine Urobilinogen Normal (NEGATIVE) mg/dL Ur Leukocyte Esterase Negative (NEGATIVE) Urine RBC 0-5 (0-5) Urine WBC 0-5 (0-5) Ur Squamous Epith Cells Few H (NS,R,O) Urine Bacteria Few H (NS) Meds: Medications Generic Name Dose Route Start Last Admin Trade Name Bam PRN Reason Stop Dose Admin Sodium Chloride 1,000 mls @ 500 mls/hr 02/22/21 17:45 02/22/21 17:48 Normal Saline IV 500 mls/hr ASDIRECTED JULY Administration Discontinued Medications Generic Name Dose Route Start Last Admin Trade Name Bam PRN Reason Stop Dose Admin Al Hydroxide/Mg Hydroxide 15 0 ml 02/22/21 16:22 02/22/21 16:31 ml/ Lidocaine HCl 15 ml PO 02/22/21 16:23 30 ml ONETIME ONE Administration Iopamidol 100 ml 02/22/21 17:46 02/22/21 17:56 Iopamidol 755 Mg/Ml 100 Ml Bottle IV 02/22/21 17:47 100 ml . DIRECTED ONE Administration Morphine Sulfate 4 mg 02/22/21 16:47 02/22/21 17:25 Morphine 4 Mg/Ml Vial IVPUSH 02/22/21 16:48 4 mg NOW STA Administration Ondansetron HCl 4 mg 02/22/21 16:22 02/22/21 16:31 Ondansetron 4 Mg Tab.Dis PO 02/22/21 16:23 4 mg NOW STA Administration Ondansetron HCl 4 mg 02/22/21 16:47 02/22/21 17:12 Ondansetron 4 Mg/2 Ml Sdv IVPUSH 02/22/21 16:48 4 mg NOW STA Administration Pantoprazole Sodium 80 mg 02/22/21 18:19 02/22/21 18:22 Pantoprazole 40 Mg Vial IVPUSH 02/22/21 18:20 80 mg NOW STA Administration Departure - Departure Time of Disposition: 18:45 Disposition: Home, Self-Care 01 Condition: Good Clinical Impression: GERD (gastroesophageal reflux disease) Gastritis Qualifiers: Gastritis type: other gastritis Chronicity: acute Gastritis bleeding: without bleeding Qualified Code(s): K29.00 - Acute gastritis without bleeding - Discharge Information Prescriptions: Pantoprazole Sodium [Protonix] 40 mg PO DAILY #60 tablet.dr Instructions: Gastritis, Adult, [id number], Food Choices for Gastroesophageal Reflux Disease, Adult, [id number] Referrals: Remy Raymundo MD [Primary Care Provider] - Forms: ED Department Discharge Additional Instructions: Please read discharge instructions on Gastritis and GERD Protonix/Pantoprazole 40 mg daily Follow up as needed Sepsis Event Note (ED) - Evaluation Sepsis Screening Result: No Definite Risk - Focused Exam Vital Signs: Vital Signs Temp Pulse Resp BP BP Pulse Ox 02/22/21 17:55 36.9 C 88 18 148/78 H 98 02/22/21 16:02 37.2 C 73 18 91/63 75/42 L 99 - My Orders Last 24 Hours: My Active Orders 02/22/21 17:03 Abdomen Pelvis w Cont [CT] Stat 02/22/21 17:45 Sodium Chloride 0.9% [Normal Saline] 1,000 ml IV ASDIRECTED - Assessment/Plan Last 24 Hours: My Active Orders 02/22/21 17:03 Abdomen Pelvis w Cont [CT] Stat 02/22/21 17:45 Sodium Chloride 0.9% [Normal Saline] 1,000 ml IV ASDIRECTED
[2021-02-22] MEDS: Ondansetron 4 MG/2 ML SDV IVPUSH STA (17:12)
[2021-02-22] MEDS: Morphine 4 MG/ML VIAL IVPUSH STA (17:25)
[2021-02-22] MEDS: Sodium Chloride 0.9% 1,000 ML IV SCH (17:48)
[2021-02-22] MEDS: Iopamidol 755 Mg/ML 100 ML Bottle IV ONE (17:56)
[2021-02-22] MEDS: Pantoprazole 40 MG Vial IVPUSH STA (18:22)
--- NOTE | 2021-02-22 18:40 | CT ---
INDICATION: CT ABDOMEN AND PELVIS WITH CONTRAST: Spiral 3.75 mm axial sections were obtained through the abdomen and pelvis with 100 mL Isovue-370 at 2.6 mL/second with sagittal and coronal reconstructions 02/22/21 and compared with 04/21/19. TOTAL EXAM DLP: 1830.98 mGy/cm. The lower lung [place] and pleural spaces visualized appeared normal. The heart appeared normal in size. No pericardial effusion was seen. Postsurgical change was noted at the atria. There are tiny low-density lesions in the liver, which are indeterminate, but likely cystic. No significant-appearing lesions were noted. The gallbladder is absent compatible with history of its removal. The common bile duct was normal in caliber for postcholecystectomy patient. The pancreas is somewhat fatty replaced. Adrenal glands appeared normal. Some minimal irregularity of renal cortices suggest mild renal cortical scarring. No obstructive uropathy or definite calculi were seen. No retroperitoneal mass was noted. Minimal retroperitoneal lymphadenopathy is nonspecific. The appendix is absent compatible with history of appendectomy. No evidence of free air or definite bowel obstruction was identified. The colon is somewhat prominent in caliber, similar to the previous examination, with gas and stool in the rectum - nonobstructive. No inguinal hernia was seen. A wide-mouth ventral hernia is noted to the left of midline with bowel within it, nonobstructive, at the level of the upper pelvis. This is a new finding compared with the previous study. A second larger ventral hernia is noted in the midline in the epigastric area, including a portion of the transverse colon - nonobstructive in appearance. This larger hernia measured 64 mm transversely x 34 mm AP diameter. Craniocaudad diameter was 67 mm. No additional mass lesions, organomegaly or free fluid collections were identified in the abdomen or pelvis. Hypertrophic degenerative changes are noted throughout the lumbosacral spine with degenerative disc disease suggested at thoracolumbar spine level and at L2 through S1 with vacuum disc phenomenon at the disc levels below L2. IMPRESSION: 1. Degenerative changes and disc disease lumbosacral spine. 2. The patient is post cholecystectomy, appendectomy, gastric bypass with a bowel anastomosis in the right lower quadrant, compatible with history of small bowel resection. 3. No specific etiology for the patient's right upper quadrant/flank pain, although the colon appears mildly distended in those areas, compared with the previous study- of questionable significance. 4. Ventral hernias. Report was called to Dr. Maldonado at approximately 1815 hours, 02/22/21. [facility]
[2021-02-22 21:27] VITALS: PULSE 89
[2021-02-22 21:33] VITALS: BP 140/74
== END 2021-02-22 20:00 | disposition home or self-care (01) ==
LOC: FB.ED 15:42
DX: K29.00 Acute gastritis without bleeding (principal); K21.9 Gastro-esophageal reflux disease without esophagitis; E78.00 Pure hypercholesterolemia, unspecified; I10 Essential (primary) hypertension; J44.9 Chronic obstructive pulmonary disease, unspecified; E11.9 Type 2 diabetes mellitus without complications; E03.9 Hypothyroidism, unspecified; E66.9 Obesity, unspecified; Z86.73 Personal history of transient ischemic attack (TIA), and cerebral infarction without residual deficits; Z88.0 Allergy status to penicillin; Z88.1 Allergy status to other antibiotic agents; Z88.8 Allergy status to other drugs, medicaments and biological substances; Z88.2 Allergy status to sulfonamides; Z79.899 Other long term (current) drug therapy; Z79.02 Long term (current) use of antithrombotics/antiplatelets; Z68.31 Body mass index [BMI] 31.0-31.9, adult
CPT/HCPCS: 36415; 74177; 80053; 81001; 82150; 83690; 84484; 85025; 96374; 96375; 99284; A9270; C9113; J2270; J2405; J7030; Q9967

== ENCOUNTER 2021-04-01 10:52 | Emergency (ER) | payer BC, MEDICAID ==
[2021-04-01 11:17] VITALS: BP 135/93; PULSE 72
[2021-04-01] MEDS ORDERED: Ketorolac 30 MG/ML SDV IVPUSH ONE (13:33)
[2021-04-01] MEDS ORDERED: Clindamycin in 0.9 % Sod Chlor 600 MG in Premix Bag 1 BAG IV ONE ×2 (13:33)
[2021-04-01] MEDS ORDERED: Metoclopramide 10 MG/2 ML SDV IVPUSH ONE (13:33)
[2021-04-01] MEDS ORDERED: hydrOXYzine HCl 50 MG/ML SDV IM ONE (13:33)
--- NOTE | 2021-04-01 14:23 | EDM.PDOC ---
ED HPI GENERAL MEDICAL PROBLEM - General Chief Complaint: General Stated Complaint: RT EYE CAN'T SEE, ABD PAIN Time Seen by Provider: 04/01/21 12:05 Source of Information: Reports: Patient History Limitations: Reports: No Limitations - History of Present Illness INITIAL COMMENTS - FREE TEXT/NARRATIVE: c/o multiple somatic c/o's (at least 7-8) to ED at [place] yesterday with same c/o and had neg w/u, labs reviewed, is now showing >100,000 Staph in urine, not given antbx there says she has a bifrontal HARRISON, nonspecific discomfort in abd in midline above her umbilicus where she has an old gastric bypass scar from 5y ago lives alone, friend drove here pt fretful and worried saying she had a wound infection after gastric bypass altho skin clearly intact Headache Pain Score (Numeric/FACES): 7 Abdomen Pain Score (Numeric/FACES): 8 - Related Data Allergies Allergy/AdvReac Type Severity Reaction Status Date / Time Penicillins Allergy Unknown Hives Verified 04/01/21 11:12 aspirin Allergy Hives Verified 04/01/21 11:12 codeine Allergy Nausea and Verified 04/01/21 11:12 Vomiting Sulfa (Sulfonamide Allergy Hives Verified 04/01/21 11:12 Antibiotics) zolpidem [From Ambien] Allergy Hallucinati Verified 04/01/21 11:12 ons propoxyphene napsylate AdvReac Stomach Verified 04/01/21 11:12 [From Gera-Agapito] Upset Home Meds: Home Meds tiZANidine [Zanaflex] 2 mg PO TID 06/04/17 [History] rOPINIRole [Requip] 0.5 mg PO BEDTIME 01/02/18 [History] Acetaminophen [Tylenol Extra Strength] 1,000 mg PO TID 12/16/18 [History] Albuterol Sulfate 1 ampule NEB QID PRN 08/28/19 [History] Levothyroxine 175 mcg PO DAILY@0600 03/09/20 [History] Sodium Fluoride [Denta 5000 Plus] 1 dose DT BEDTIME 03/09/20 [History] traMADol [Ultram] 50 mg PO Q6H PRN 03/09/20 [History] Clopidogrel [Plavix] 75 mg PO DAILY 02/22/21 [History] Escitalopram [Lexapro] 20 mg PO DAILY 02/22/21 [History] Mirtazapine 7.5 mg PO BEDTIME 02/22/21 [History] Pantoprazole Sodium [Protonix] 40 mg PO DAILY #60 tablet.dr 02/22/21 [Rx] bisoproloL fumarate [Bisoprolol Fumarate] 5 mg PO DAILY 02/22/21 [History] hydrOXYzine HCL [hydrOXYzine] 25 mg PO BID 02/22/21 [History] lisinopriL [Lisinopril] 10 mg PO DAILY 02/22/21 [History] nitrofurantoin macrocrystaL [Nitrofurantoin] 100 mg PO BID #14 capsule 04/01/21 [Rx] Past Medical History HEENT History: Reports: Impaired Vision Cardiovascular History: Reports: Cardiomyopathy, High Cholesterol, Hypertension Respiratory History: Reports: Bronchitis, Recurrent, COPD, Pneumonia, Recurrent, Sleep Apnea, SOB Other Respiratory History: Uses CPAP. 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 Right foot fracture. L Wrist surgery. RLS. LUMBAR DJD Neurological History: Reports: CVA, Migraines, TIA, Vertigo, Other (See Below) Other Neuro History: CVA with L sided weakness. SYNCOPE Psychiatric History: Reports: Anxiety, Depression, Panic Attack Endocrine/Metabolic History: Reports: Diabetes, Type II, Hypokalemia, Hypothyroidism, Obesity/BMI 30+ Other Endocrine/Metabolic History: hx thyroid storm Hematologic History: Reports: Anemia, Anticoagulation Therapy, B12 Deficiency, Blood Transfusion(s), Iron Deficiency Immunologic History: Reports: None Dermatologic History: Reports: None - Infectious Disease History Infectious Disease History: Reports: Chicken Pox, Influenza - Past Surgical History Head Surgeries/Procedures: Reports: None HEENT Surgical History: Reports: Adenoidectomy, Myringotomy w Tube(s), Oral Surgery, Tonsillectomy Cardiovascular Surgical History: Reports: Other (See Below) Other Cardiovascular Surgeries/Procedures: has permanant loop recorder Respiratory Surgical History: Reports: None GI Surgical History: Reports: Appendectomy, Bariatric Procedure, Colon, Colonoscopy, EGD, Other (See Below) Other GI Surgeries/Procedures: GUIDO EN Y GASTRIC BYPASS. ABD WOUND DEHISCENCE. I&D ABD WOUND. SMALL BOWEL RESCECTION. MULTIPLE LAPAROTOMIES AND LAPAROSCOPIES Female Surgical History: Reports: Tubal Ligation Endocrine Surgical History: Reports: Other (See Below) Other Endocrine Surgeries/Procedures: thyroid removed 20 years ago Neurological Surgical History: Reports: None Musculoskeletal Surgical History: Reports: ORIF, Shoulder Surgery Other Musculoskeletal Surgeries/Procedures:: L rotator cuff repair, Oncologic Surgical History: Reports: Biopsy of Breast Other Oncologic Surgeries/Procedures: L BREAST BX - BENIGN Dermatological Surgical History: Reports: None Social & Family History - Family History Family Medical History: No Pertinent Family History Other Cardiac Family History: Mom had open heart surgery, pt unsure of what surgery was for. Musculoskeletal: Reports: Arthritis, Gout, Osteoporosis Endocrine/Metabolic: Reports: Diabetes, type II, Osteoporosis Oncologic: Reports: Lung - Tobacco Use Tobacco Use Status *Q: Never Tobacco User - Caffeine Use Caffeine Use: Reports: Soda Other Caffeine Use: REPORTS APPROX 2X WEEK - Recreational Drug Use Recreational Drug Use: No - Living Situation & Occupation Living situation: Reports: Occupation: Unemployed ED ROS GENERAL - Review of Systems Review Of Systems: See Below Constitutional: Reports: No Symptoms HEENT: Reports: No Symptoms Respiratory: Reports: No Symptoms Cardiovascular: Reports: No Symptoms Endocrine: Reports: No Symptoms GI/Abdominal: Reports: Abdominal Pain : Reports: No Symptoms Musculoskeletal: Reports: No Symptoms Skin: Reports: No Symptoms Neurological: Reports: Headache Psychiatric: Reports: Anxiety Hematologic/Lymphatic: Reports: No Symptoms Immunologic: Reports: No Symptoms ED EXAM, GENERAL - Physical Exam Exam: See Below Exam Limited By: No Limitations General Appearance: Alert, WD/WN, Other (very anxious) Eye Exam: Bilateral Eye: EOMI, Normal Inspection, PERRL, Other (visual field intact) Ears: Hearing Grossly Normal Nose: Normal Inspection, Normal Mucosa, No Blood Throat/Mouth: Normal Inspection, Normal Lips, Normal Teeth, Normal Voice, No A [place] Compromise Head: Atraumatic, Normocephalic Neck: Normal Inspection, Supple, Non-Tender, Full Range of Motion Respiratory/Chest: No Respiratory Distress, Lungs Clear, Normal Breath Sounds, Chest Non-Tender Cardiovascular: Regular Rate, Rhythm, No Edema, No Murmur GI/Abdominal: Soft, Non-Tender, No Distention Back Exam: Normal Inspection, Full Range of Motion. No: CVA Tenderness (R), CVA Tenderness (L) Extremities: Normal Range of Motion, Non-Tender, No Pedal Edema Neurological: Alert, Oriented, CN II-XII Intact, Normal Cognition, No Motor/Sensory Deficits Psychiatric: Anxious Skin Exam: Warm, Dry, Intact, Normal Color, No Rash Lymphatic: No Adenopathy Course - Vital Signs Last Recorded V/S: Last Vital Signs Temp 36.8 C 04/01/21 10:55 Pulse 72 04/01/21 10:55 Resp 18 04/01/21 10:55 BP 135/93 H 04/01/21 10:55 Pulse Ox 100 04/01/21 10:55 - Orders/Labs/Meds Meds: Medications Discontinued Medications Generic Name Dose Route Start Last Admin Trade Name Freq PRN Reason Stop Dose Admin Hydroxyzine HCl 50 mg 04/01/21 13:33 04/01/21 13:44 Hydroxyzine Hcl 50 Mg/Ml Sdv IM 04/01/21 13:34 50 mg ONETIME ONE Administration Clindamycin/Sodium Chloride 50 mls @ 150 mls/hr 04/01/21 13:33 04/01/21 13:55 600 mg/ Premix IV 04/01/21 13:52 150 mls/hr ONETIME ONE Administration Ketorolac Tromethamine 30 mg 04/01/21 13:33 04/01/21 13:45 Ketorolac 30 Mg/Ml Sdv IVPUSH 04/01/21 13:34 30 mg ONETIME ONE Administration Metoclopramide HCl 10 mg 04/01/21 13:33 04/01/21 13:46 Metoclopramide 10 Mg/2 Ml Sdv IVPUSH 04/01/21 13:34 10 mg ONETIME ONE Administration - Re-Assessments/Exams Free Text/Narrative Re-Assessment/Exam: 04/01/21 14:26 pt continued with multiple somatic c/o's despite 4 meds here clinically doing quite without active infection EKG 04-01-21 at 11:02 with SR, rate 73, o acute/ST/ischemic changes, was low voltage Departure - Departure Time of Disposition: 14:22 Disposition: Home, Self-Care 01 Condition: Good Clinical Impression: UTI (urinary tract infection), Tension headache, Anxiety - Discharge Information *PRESCRIPTION DRUG MONITORING PROGRAM REVIEWED*: Not Applicable *COPY OF PRESCRIPTION DRUG MONITORING REPORT IN PATIENT PERLITA: Not Applicable Prescriptions: nitrofurantoin macrocrystaL [Nitrofurantoin] 100 mg PO BID #14 capsule Instructions: Urinary Tract Infection, Adult, Tension Headache, Adult Referrals: PCP,None [Primary Care Provider] - Additional Instructions: For Staph infection of the bladder, take nitrofurantoin 100 mg 1 capsule 2 times a day for 7 days. Increase fluids. Get adequate rest. For pain, take acetaminophen 325 mg 2 tabs 4 times a day. Use cool compress or ice for 10 minutes 3-4 times a day. See your doctor in 10 days. Sepsis Event Note (ED) - Evaluation Sepsis Screening Result: No Definite Risk - Focused Exam Vital Signs: Vital Signs Temp Pulse Resp BP Pulse Ox 04/01/21 10:55 36.8 C 72 18 135/93 H 100
== END 2021-04-01 14:40 | disposition home or self-care (01) ==
LOC: FB.ED 10:52
DX: G44.209 Tension-type headache, unspecified, not intractable (principal); F41.9 Anxiety disorder, unspecified; N39.0 Urinary tract infection, site not specified; I10 Essential (primary) hypertension; J44.9 Chronic obstructive pulmonary disease, unspecified; K21.9 Gastro-esophageal reflux disease without esophagitis; E11.9 Type 2 diabetes mellitus without complications; E03.9 Hypothyroidism, unspecified; E66.9 Obesity, unspecified; Z68.32 Body mass index [BMI] 32.0-32.9, adult; Z86.73 Personal history of transient ischemic attack (TIA), and cerebral infarction without residual deficits; Z88.0 Allergy status to penicillin; Z88.8 Allergy status to other drugs, medicaments and biological substances; Z88.5 Allergy status to narcotic agent; Z88.2 Allergy status to sulfonamides; Z79.01 Long term (current) use of anticoagulants; Z79.02 Long term (current) use of antithrombotics/antiplatelets; Z79.899 Other long term (current) drug therapy
CPT/HCPCS: 93005; 96365; 96372; 96375; 99284; J1885; J2765; J3410; J3490

== ENCOUNTER 2021-09-22 14:26 | Emergency (ER) | payer BC, MEDICAID ==
[2021-09-22] MEDS ORDERED: Acetaminophen 500 MG Tab PO ONE (14:39)
[2021-09-22] MEDS ORDERED: traMADol 50 MG Tab PO ONE ×2 (14:59→16:10)
[2021-09-22 16:42] VITALS: BP 169/90; PULSE 57
== END 2021-09-22 16:35 | disposition home or self-care (01) ==
LOC: FB.ED 14:26
DX: R07.9 Chest pain, unspecified (principal); T50.905A Adverse effect of unspecified drugs, medicaments and biological substances, initial encounter; E78.00 Pure hypercholesterolemia, unspecified; J44.9 Chronic obstructive pulmonary disease, unspecified; K21.9 Gastro-esophageal reflux disease without esophagitis; I10 Essential (primary) hypertension; E11.9 Type 2 diabetes mellitus without complications; E66.9 Obesity, unspecified; Z68.33 Body mass index [BMI] 33.0-33.9, adult; Z86.73 Personal history of transient ischemic attack (TIA), and cerebral infarction without residual deficits; Z90.49 Acquired absence of other specified parts of digestive tract; Z79.899 Other long term (current) drug therapy; Z88.0 Allergy status to penicillin; Z88.6 Allergy status to analgesic agent; Z88.5 Allergy status to narcotic agent; Z88.8 Allergy status to other drugs, medicaments and biological substances; Z88.2 Allergy status to sulfonamides; Z91.041 Radiographic dye allergy status
CPT/HCPCS: 80048; 81001; 84484; 93005; 99284; A9270; J1642; 36415

== ENCOUNTER 2021-11-27 23:47 | Emergency (ER) | payer MEDICARE, MEDICAID ==
[2021-11-28] MEDS ORDERED: Clotrimazole 1% Crm 15 GM Tube TOP ONE (00:44)
[2021-11-28] MEDS ORDERED: Betamethasone Dipropionate/Clotrimazole 0.05-1% Crm 45 GM Tube TOP SCH (01:15)
[2021-11-28] MEDS ORDERED: Betamethasone Dipropionate/Clotrimazole 0.05-1% Crm 15 GM Tube TOP SCH (01:55)
[2021-11-28 03:33] VITALS: BP 130/84; PULSE 61
== END 2021-11-28 02:17 | disposition home or self-care (01) ==
LOC: FB.ED 23:47
DX: L29.9 Pruritus, unspecified (principal); I48.91 Unspecified atrial fibrillation; E11.22 Type 2 diabetes mellitus with diabetic chronic kidney disease; I13.0 Hypertensive heart and chronic kidney disease with heart failure and stage 1 through stage 4 chronic kidney disease, or unspecified chronic kidney disease; N18.9 Chronic kidney disease, unspecified; I50.9 Heart failure, unspecified; E78.00 Pure hypercholesterolemia, unspecified; J44.9 Chronic obstructive pulmonary disease, unspecified; Z86.73 Personal history of transient ischemic attack (TIA), and cerebral infarction without residual deficits; Z88.0 Allergy status to penicillin; Z88.5 Allergy status to narcotic agent; Z88.2 Allergy status to sulfonamides; Z88.8 Allergy status to other drugs, medicaments and biological substances; Z79.899 Other long term (current) drug therapy
CPT/HCPCS: 99281; 99282; A9270

== ENCOUNTER 2022-01-20 07:26 | Emergency (ER) | payer MEDICARE, MEDICAID ==
[2022-01-20] MEDS ORDERED: Acetaminophen/HYDROcodone 325-5 MG Tab PO ONE (07:27)
[2022-01-20] MEDS ORDERED: Hydrocortisone/Neomycin/Polymyxin B Ophth Susp 7.5 ML Bottle EYEBOTH ONE (07:27)
[2022-01-20] MEDS ORDERED: Acetaminophen/HYDROcodone 325-10 MG Tab PO ONE (08:02)
[2022-01-20 08:32] LABS: ESTIMATED GFR 49 mL/min (>60)
[2022-01-20 08:34] VITALS: BP 109/64; PULSE 64
[2022-01-20] MEDS ORDERED: Ondansetron 4 MG/2 ML SDV IVPUSH PRN (08:53)
[2022-01-20] MEDS ORDERED: Iopamidol 755 Mg/ML 100 ML Bottle IV ONE (09:46)
[2022-01-20] MEDS ORDERED: Diatrizoate Meglumine/Diatrizoate Sodium 37% 30 ML Bottle PO ONE (09:46)
[2022-01-20] MEDS ORDERED: cefTRIAXone 2 GM Vial IVPUSH ONE (11:32)
== END 2022-01-20 12:15 | disposition home or self-care (01) ==
LOC: FB.ED 07:26
DX: N39.0 Urinary tract infection, site not specified (principal); I11.0 Hypertensive heart disease with heart failure; I50.9 Heart failure, unspecified; J44.9 Chronic obstructive pulmonary disease, unspecified; E11.9 Type 2 diabetes mellitus without complications; Z88.0 Allergy status to penicillin; Z88.6 Allergy status to analgesic agent; Z88.5 Allergy status to narcotic agent; Z88.2 Allergy status to sulfonamides; Z88.8 Allergy status to other drugs, medicaments and biological substances; Z79.899 Other long term (current) drug therapy; Z86.16 Personal history of COVID-19
CPT/HCPCS: 36415; 74177; 80053; 81001; 85025; 86140; 87086; 96374; 96375; 99284; A9270; J0696; J1642; J2405; Q9963; Q9967